=== PATIENT | female | born 1955 | race Caucasian/White ===

== ENCOUNTER 2016-12-16 22:37 | Emergency (ER) | payer BC, OTHER ==
[~2016-12-16] VITALS: Ht 167.6 cm; Wt 105.6 kg
[~2016-12-16 22:37] MED LIST: CLB/200 PO; FLV1 PO; HYDR200T5 PO; LORA0.5T12 PO; MTH25 PO; POTA20TA13 PO; PRED-301 PO; RANI150T2 PO; SIMV10TA2 PO; SULF500T2 PO; TRIATAB3 PO
[2016-12-16 22:42] VITALS: TEMP 36.6; Ht 167.6 cm; Wt 105.6 kg
[2016-12-16] MEDS ORDERED: AMLO2.5T PO (23:31)
[2016-12-16] MEDS ORDERED: KETOROLAC TROMETHAMINE 30 MG/ML VIAL IV STA (23:32)
--- NOTE | 2016-12-17 00:11 | DIAGNOSTIC IMAGING REPORT ---
SINGLE VIEW CHEST CLINICAL HISTORY: Atypical chest pain. FINDINGS: An AP, portable, upright chest radiograph is compared to study dated 05/31/2013. The examination is degraded by portable technique and patient rotation. The cardiomediastinal silhouette is unremarkable. The lungs and pleural spaces are clear. No pneumothorax is seen. The skeletal structures are osteopenic. The bony thorax is grossly intact. Degenerative change and scoliosis are noted in the thoracic spine. IMPRESSION: No active disease in the chest. Electronically signed by: Adan Su M.D. 12/17/2016 12:10 AM Dictated Date/Time: 12/17/2016 12:09 AM
--- NOTE | 2016-12-17 00:12 | DIAGNOSTIC IMAGING REPORT ---
LEFT SHOULDER 3 VIEWS CLINICAL HISTORY: Left shoulder pain. No reported history of trauma. FINDINGS: 3 views of left shoulder are obtained. No prior studies are available for comparison at the time of dictation. The skeletal structures are osteopenic. There is no radiographic evidence of fracture or dislocation. Productive degenerative change is seen at the acromioclavicular joint. Spurring is noted along the inferior aspect of the glenoid. The overlying soft tissues are within normal limits. Imaged left lung parenchyma appears clear. IMPRESSION: No acute bony abnormality is seen in the left shoulder. Electronically signed by: Adan Su M.D. 12/17/2016 12:11 AM Dictated Date/Time: 12/17/2016 12:10 AM
[2016-12-17 00:34] LABS: BASO % 0.3 %; BASO ABS # 0.02 K/uL (0-0.2); COMPLETE YES; EOS % 1.3 %; HEMATOCRIT 36.3 % (37-47); IG% 0.1 %; LYMPH % 26.8 %; LYMPH ABS # 1.85 K/uL (1.2-3.4); MEAN CELL VOLUME 84.6 fL (80-100); MEAN CORPUSCULAR HEMOGLOBIN 28.2 pg (25-34); MEAN CORPUSCULAR HGB CONC 33.3 g/dl (32-36); MEAN PLATELET VOLUME 9.8 fL (7.4-10.4); MONO % 15.2 %; NEUT % 56.3 %; PLATELET COUNT 226 K/uL (130-400); RED BLOOD COUNT 4.29 M/uL (4.2-5.4); WHITE BLOOD COUNT 6.91 K/uL (4.8-10.8)
[2016-12-17 00:51] LABS: BLOOD UREA NITROGEN 22 mg/dl (7-18); BUN/CREATININE RATIO 26.6 (10-20); CALCIUM 8.5 mg/dl (8.5-10.1); CARBON DIOXIDE 28 mmol/L (21-32); CHLORIDE 107 mmol/L (98-107); CREATININE 0.84 mg/dl (0.60-1.20); GLUCOSE 106 mg/dl (70-99); POTASSIUM 3.1 mmol/L (3.5-5.1); SODIUM 143 mmol/L (136-145)
--- NOTE | 2016-12-17 01:20 | EMERGENCY ROOM VISIT NOTE ---
History Report prepared by Primitivo: Jesenia Gordon Under the Supervision of: Dr. Ilan Benson M.D. First contact with patient: 23:19 Chief Complaint: ARM PAIN Stated Complaint: PAIN IN LEFT ARM History of Present Illness The patient is a 61 year old female who presents to the Emergency Room with complaints of constant left upper arm pain which started several days ago. The patient has a history of rheumatoid arthritis. She does not think that this is an arthritis flare. With her flares, she normally has pain in her joints and she is unable to raise her arm. She is currently not having any significant difficulty moving her arm like she does with her flares. She did try taking prednisone which she has in case of flares to no significant relief. She also tried icing her arm to no relief. The pain does go up to her shoulder and down to her elbow at times. She denies any hand pain. She denies any nausea, vomiting , diaphoresis, SOB, or chest pain. She has been eating and drinking well. She has been taking Celebrex. Her last dose was this morning. Source of History: patient Onset: several days ago Position: arm (left) Quality: other (pain) Timing: constant Associated Symptoms: No diaphoresis, No chest pain, No SOB, No nausea, No vomiting Review of Systems See HPI for pertinent positives and negatives. A total of ten systems were reviewed and were otherwise negative. Past Medical & Surgical Medical Problems: (1) Rheumatoid arthritis Family History No pertinent family history stated. Social History Smoking Status: Current Every Day Smoker Alcohol Use: none Drug Use: none Marital Status: Housing Status: lives with family Occupation Status: unemployed Current/Historical Medications Scheduled Amlodipine (Norvasc), 2.5 MG PO DAILY Celecoxib (CeleBREX), 200 MG PO QAM Folic Acid (Folic Acid), 1 TAB PO QAM Hydroxychloroquine Sulfate (Plaquenil), 400 MG PO HS Methotrexate (Methotrexate), 20 MG PO WK Potassium Chloride Microencaps (Potassium Chloride Er), 20 MEQ PO BID Prednisone (Prednisone), 5 MG PO QAM Simvastatin (Zocor), 10 MG PO HS Sulfasalazine (Azulfidine), 500 MG PO BID Triamterene/Hctz (Triamterene/Hctz 37.5-25MG), 1 TAB PO QAM Scheduled PRN Lorazepam (Lorazepam), 0.5 MG PO Q8 PRN for Anxiety Allergies Coded Allergies: No Known Allergies (Unverified , 12/16/16) Physical Exam Vital Signs Date Time Temp Pulse Resp B/P (MAP) Pulse Ox O2 Delivery O2 Flow Rate FiO2 12/17/16 01:35 60 18 155/94 96 12/17/16 00:13 67 12/16/16 22:42 36.6 76 18 159/87 94 Room Air Physical Exam GENERAL: Awake, alert, well-appearing, in no distress HENT: Normocephalic, atraumatic. Dry mucous membranes. EYES: Normal conjunctiva. Sclera non-icteric. NECK: Supple. No nuchal rigidity. FROM. No JVD. RESPIRATORY: Clear to auscultation. CARDIAC: Regular rate, normal rhythm. Extremities warm and well perfused. Pulses equal. ABDOMEN: Soft, non-distended. No tenderness to palpation. No rebound or guarding. No masses. RECTAL: Deferred. MUSCULOSKELETAL: Chest examination reveals no tenderness. The back is symmetrical on inspection without obvious abnormality. There is no CVA tenderness to palpation. No joint edema. Tenderness in the posterior aspect of the GH joint. Mild AC joint tenderness. Mild pain with active ROM. Mild tenderness to lateral aspect of the upper arm and radial distribution. No pain with passive ROM. Distal motor sensory intact. LOWER EXTREMITIES: Calves are equal size bilaterally and non-tender. No edema. No discoloration. NEURO: Normal sensorium. No sensory or motor deficits noted. SKIN: No rash or jaundice noted. Medical Decision & Procedures ER Provider Diagnostic Interpretation: Radiology results as stated below per my review and radiologist interpretation: SINGLE VIEW CHEST CLINICAL HISTORY: Atypical chest pain. FINDINGS: An AP, portable, upright chest radiograph is compared to study dated 05/31/2013. The examination is degraded by portable technique and patient rotation. The cardiomediastinal silhouette is unremarkable. The lungs and pleural spaces are clear. No pneumothorax is seen. The skeletal structures are osteopenic. The bony thorax is grossly intact. Degenerative change and scoliosis are noted in the thoracic spine. IMPRESSION: No active disease in the chest. Electronically signed by: Adan Su M.D. 12/17/2016 12:10 AM Dictated Date/Time: 12/17/2016 12:09 AM LEFT SHOULDER 3 VIEWS CLINICAL HISTORY: Left shoulder pain. No reported history of trauma. FINDINGS: 3 views of left shoulder are obtained. No prior studies are available for comparison at the time of dictation. The skeletal structures are osteopenic. There is no radiographic evidence of fracture or dislocation. Productive degenerative change is seen at the acromioclavicular joint. Spurring is noted along the inferior aspect of the glenoid. The overlying soft tissues are within normal limits. Imaged left lung parenchyma appears clear. IMPRESSION: No acute bony abnormality is seen in the left shoulder. Electronically signed by: Adan Su M.D. 12/17/2016 12:11 AM Dictated Date/Time: 12/17/2016 12:10 AM Laboratory Results 12/17/16 00:23 Red Blood Count 4.29, Mean Corpuscular Volume 84.6, Mean Corpuscular Hemoglobin 28.2, Mean Corpuscular Hemoglobin Concent 33.3, Mean Platelet Volume 9.8, Neutrophils (%) (Auto) 56.3, Lymphocytes (%) (Auto) 26.8, Monocytes (%) (Auto) 15.2, Eosinophils (%) (Auto) 1.3, Basophils (%) (Auto) 0.3, Neutrophils # (Auto ) 3.89, Lymphocytes # (Auto) 1.85, Monocytes # (Auto) 1.05, Eosinophils # (Auto ) 0.09, Basophils # (Auto) 0.02 12/17/16 00:23 Test 12/17/16 00:23 White Blood Count 6.91 K/uL (4.8-10.8) Red Blood Count 4.29 M/uL (4.2-5.4) Hemoglobin 12.1 g/dL (12.0-16.0) Hematocrit 36.3 % (37-47) Mean Corpuscular Volume 84.6 fL (80-100) Mean Corpuscular Hemoglobin 28.2 pg (25-34) Mean Corpuscular Hemoglobin Concent 33.3 g/dl (32-36) Platelet Count 226 K/uL (130-400) Mean Platelet Volume 9.8 fL (7.4-10.4) Neutrophils (%) (Auto) 56.3 % Lymphocytes (%) (Auto) 26.8 % Monocytes (%) (Auto) 15.2 % Eosinophils (%) (Auto) 1.3 % Basophils (%) (Auto) 0.3 % Neutrophils # (Auto) 3.89 K/uL (1.4-6.5) Lymphocytes # (Auto) 1.85 K/uL (1.2-3.4) Monocytes # (Auto) 1.05 K/uL (0.11-0.59) Eosinophils # (Auto) 0.09 K/uL (0-0.5) Basophils # (Auto) 0.02 K/uL (0-0.2) RDW Standard Deviation 44.4 fL (36.4-46.3) RDW Coefficient of Variation 14.4 % (11.5-14.5) Immature Granulocyte % (Auto) 0.1 % Immature Granulocyte # (Auto) 0.01 K/uL (0.00-0.02) Anion Gap 8.0 mmol/L (3-11) Est Creatinine Clear Calc Drug Dose 86.4 ml/min Estimated GFR () 86.9 Estimated GFR (Non- 75.0 BUN/Creatinine Ratio 26.6 (10-20) Calcium Level 8.5 mg/dl (8.5-10.1) Troponin I < 0.015 ng/ml (0-0.045) Laboratory results reviewed by me Medications Administered Medications (Trade) Dose Ordered Sig/Hilaria Route Start Time Stop Time Status Last Admin Dose Admin Ketorolac Tromethamine (Toradol Inj) 30 mg NOW STAT IV 12/16/16 23:32 12/16/16 23:36 DC 12/17/16 00:42 30 MG ECG Indication: back/shoulder pain Rate (beats per minute): 69 Rhythm: normal sinus Findings: no acute ischemic change, other (normal axis) ED Course 2326: The patient was evaluated in room B10. A complete history and physical exam was performed. 2332: Toradol Inj 30 mg IV. 0102: I reevaluated the patient. She is feeling better. I discussed results and discharge instructions: She verbalized understanding and agreement. The patient is ready for discharge. Medical Decision I reviewed the patient's past medical history, medications, and the nursing notes as described above. Differential diagnosis: muscular strain, arthritis, radiculopathy, fracture, dislocation, ACS. The patient is a 61 y/o woman with a pmhx of RA who presents to the ED with left shoulder pain x 3 days per HPI. On arrival the patient is in NAD, AFVSS. On exam has mild ttp posterior GH and anterior AC joint. Mild pain with active FROM. No pain with passive FROM. Shoulder XR with degenerative changes. Otherwise, CXR negative. EKG unremarkable. Trop negative in the setting of 3 days of constant sx. Sx most c/w arthritis. Will give sling as needed for comfort, patient to continue her prednisone burst. Findings and plan for follow- up reviewed patient. Patient agreeable and d/c'd per discharge instructions. Medication Reconcilliation Current Medication List: was personally reviewed by me Blood Pressure Screening Patient's blood pressure: Elevated blood pressure Blood pressure disposition: Elevated BP felt to be situational Impression Primary Impression: Acromioclavicular joint arthritis Scribe Attestation The scribe's documentation has been prepared under my direction and personally reviewed by me in its entirety. I confirm that the note above accurately reflects all work, treatment, procedures, and medical decision making performed by me. Departure Information Dispostion Home / Self-Care Referrals Corona Brice D.O. (PCP) Patient Instructions Arthritis Acromioclavicular, [facility] Additional Instructions Please follow up with your primary care physician in the next 1-3 days for re- evaluation. Your symptoms are likely due to shoulder arthritis. Otherwise, your exam, xrays, and lab results did not show signs of an emergent condition at this time. Continue your current medications. Heating pad at 20 minute intervals throughout the day for additional muscle relaxation. Sling as needed for comfort. Return to the emergency department for worsening symptoms as described in the accompanying instructions.
[2016-12-17 01:35] VITALS: BP 155/94; PULSE 60; O2SAT 96
== END 2016-12-17 01:39 | disposition home or self-care (01) ==
LOC: C.EDB 22:38
DX: M19.019 Primary osteoarthritis, unspecified shoulder (principal); M06.9 Rheumatoid arthritis, unspecified; F17.200 Nicotine dependence, unspecified, uncomplicated

== ENCOUNTER 2017-06-11 21:02 | Inpatient (IN) | payer OTHER ==
[~2017-06-11] VITALS: Ht 167.6 cm; Wt 95.7 kg
[~2017-06-11 21:02] MED LIST changes: -RANI150T2 PO
[2017-06-11] MEDS ORDERED: ALBUT/IPRATROP 3MG/0.5MG NEB 3 ML VIAL INH STA ×3 (21:37→23:34)
[2017-06-11] MEDS ORDERED: METHYLPREDNISOLONE 125 MG VIAL IV STA (21:39)
--- NOTE | 2017-06-11 21:47 | EMERGENCY ROOM VISIT NOTE ---
History First contact with patient: 21:18 Chief Complaint: SHORTNESS OF BREATH Stated Complaint: SHORT OF BREATH,COLD Nursing Triage Summary: pt states has been "fighting off a cold," over the past few days, increasing SHOB today, when pt arrived in room O2 sat RA 84%. Pt left lung contreras coarse and wheezing noted. History of Present Illness The patient is a 62 year old female who presents to the Emergency Room with complaints of worsening shortness of breath today. Patient states in the last 2 days she has been dealing with "cold". States her grandchildren whom she has custody of had recently been ill also but seem to be getting better. Patient states she does have history of bronchitis, has never had pneumonia or been hospitalized for breathing trouble. Patient states she is a smoker, does not use home home oxygen, does not use home MDI/nebulizer treatments. Patient states she woke up in a sweat this morning and assumes that she had a fever overnight. Patient states she has not had any more fevers or chills during the day today. Patient states her cough is productive of sputum which is mostly white and clear, no blood noted in her sputum. Patient states she felt that her breathing was getting harder and harder through the day and so came into the emergency room. Patient states she has felt an accompanying heaviness on her chest. Denies any nausea or vomiting, denies diarrhea, denies increased leg swelling, change in bowel or bladder function. Patient states she has had nasal congestion and rhinorrhea. No recent travel, no other medication changes. Patient does take medications including steroids and methotrexate for rheumatoid arthritis. Review of Systems See HPI for pertinent positives & negatives. A total of 10 systems reviewed and were otherwise negative. Past Medical/Surgical History Medical Problems: (1) Rheumatoid arthritis Social History Smoking Status: Current Every Day Smoker Alcohol Use: none Drug Use: none Marital Status: Housing Status: lives with family Occupation Status: unemployed Current/Historical Medications Scheduled Amlodipine (Norvasc), 2.5 MG PO DAILY Celecoxib (CeleBREX), 200 MG PO QAM Folic Acid (Folic Acid), 1 TAB PO QAM Methotrexate (Methotrexate), 20 MG PO WK Potassium Chloride Microencaps (Potassium Chloride Er), 20 MEQ PO BID Prednisone (Prednisone), 5 MG PO QAM Simvastatin (Zocor), 10 MG PO HS Sulfasalazine (Azulfidine), 500 MG PO BID Triamterene/Hctz (Triamterene/Hctz 37.5-25MG), 1 TAB PO QAM Scheduled PRN Lorazepam (Lorazepam), 0.5 MG PO Q8 PRN for Anxiety Physical Exam Vital Signs Date Time Temp Pulse Resp B/P (MAP) Pulse Ox O2 Delivery O2 Flow Rate FiO2 06/11/17 23:15 81 22 152/71 93 Nasal Cannula 3.0 06/11/17 21:25 75 06/11/17 21:17 95 Nasal Cannula 2.0 06/11/17 21:16 84 Room Air 06/11/17 21:15 84 Room Air 06/11/17 21:05 36.6 82 22 190/87 93 Room Air Physical Exam GENERAL: alert, well appearing, well nourished, no distress, non-toxic EYE EXAM: normal conjunctiva, PERRL and EOM's grossly intact OROPHARYNX: no exudate, no erythema, lips, buccal mucosa, and tongue normal and mucous membranes are moist NECK: supple, no nuchal rigidity, no adenopathy, non-tender LUNGS: Markedly diminished on auscultation, no wheezes/rhonchi/rales. Normal chest wall mechanics, no retractions, no nasal flaring, mild pursed lip breathing HEART: no murmurs, S1 normal and S2 normal ABDOMEN: abdomen soft, non-tender, normo-active bowel sounds, no masses, no rebound or guarding. BACK: Back is symmetrical on inspection and there is no deformity, no midline tenderness, no CVA tenderness. SKIN: no rashes and no bruising, no petechiae UPPER EXTREMITIES: upper extremities are grossly normal. LOWER EXTREMITIES: No pitting edema. Chronic appearing left ankle edema. NEURO EXAM: Normal sensorium, cranial nerves II-XII grossly intact, normal speech, no gross weakness of arms, no gross weakness of legs. Gross sensation intact. Medical Decision & Procedures ER Provider Diagnostic Interpretation: CHEST 2 VIEWS ROUTINE CLINICAL HISTORY: 62 years-old Female presenting with sob, cough. TECHNIQUE: PA and lateral views of the chest were obtained. COMPARISON: 12/16/2016. FINDINGS: Cardiomediastinal silhouette normal. Lungs and pleural spaces clear. 60 scoliotic curvature of the thoracic spine. Mild degenerative changes also noted. Upper abdomen normal. IMPRESSION: 1. No acute cardiopulmonary disease. Electronically signed by: Rocky Muñoz M.D. 06/11/2017 10:37 PM Dictated Date/Time: 06/11/2017 10:36 PM Laboratory Results 06/11/17 22:04 Red Blood Count 4.63, Mean Corpuscular Volume 85.1, Mean Corpuscular Hemoglobin 27.4, Mean Corpuscular Hemoglobin Concent 32.2, Mean Platelet Volume 9.2, Neutrophils (%) (Auto) 68.7, Lymphocytes (%) (Auto) 18.9, Monocytes (%) (Auto) 10.6, Eosinophils (%) (Auto) 1.1, Basophils (%) (Auto) 0.3, Neutrophils # (Auto ) 7.34, Lymphocytes # (Auto) 2.02, Monocytes # (Auto) 1.13, Eosinophils # (Auto ) 0.12, Basophils # (Auto) 0.03 06/11/17 22:04 Test 06/11/17 21:56 06/11/17 22:04 06/11/17 22:16 Influenza Type A Antigen Neg for Influ A (NEG) Influenza Type B Antigen POS for Influ B (NEG) White Blood Count 10.68 K/uL (4.8-10.8) Red Blood Count 4.63 M/uL (4.2-5.4) Hemoglobin 12.7 g/dL (12.0-16.0) Hematocrit 39.4 % (37-47) Mean Corpuscular Volume 85.1 fL (80-100) Mean Corpuscular Hemoglobin 27.4 pg (25-34) Mean Corpuscular Hemoglobin Concent 32.2 g/dl (32-36) Platelet Count 297 K/uL (130-400) Mean Platelet Volume 9.2 fL (7.4-10.4) Neutrophils (%) (Auto) 68.7 % Lymphocytes (%) (Auto) 18.9 % Monocytes (%) (Auto) 10.6 % Eosinophils (%) (Auto) 1.1 % Basophils (%) (Auto) 0.3 % Neutrophils # (Auto) 7.34 K/uL (1.4-6.5) Lymphocytes # (Auto) 2.02 K/uL (1.2-3.4) Monocytes # (Auto) 1.13 K/uL (0.11-0.59) Eosinophils # (Auto) 0.12 K/uL (0-0.5) Basophils # (Auto) 0.03 K/uL (0-0.2) RDW Standard Deviation 43.6 fL (36.4-46.3) RDW Coefficient of Variation 14.1 % (11.5-14.5) Immature Granulocyte % (Auto) 0.4 % Immature Granulocyte # (Auto) 0.04 K/uL (0.00-0.02) Prothrombin Time 10.7 SECONDS (9.0-12.0) Prothromb Time International Ratio 1.0 (0.9-1.1) Anion Gap 6.0 mmol/L (3-11) Est Creatinine Clear Calc Drug Dose 90.6 ml/min Estimated GFR () 99.0 Estimated GFR (Non- 85.4 BUN/Creatinine Ratio 27.5 (10-20) Calcium Level 8.7 mg/dl (8.5-10.1) Magnesium Level 1.9 mg/dl (1.8-2.4) Total Bilirubin 0.3 mg/dl (0.2-1) Aspartate Amino Transf (AST/SGOT) 18 U/L (15-37) Alanine Aminotransferase (ALT/SGPT) 22 U/L (12-78) Alkaline Phosphatase 89 U/L (45-117) Troponin I < 0.015 ng/ml (0-0.045) Pro-B-Type Natriuretic Peptide 609 pg/ml (0-900) Total Protein 7.5 gm/dl (6.4-8.2) Albumin 3.3 gm/dl (3.4-5.0) Globulin 4.2 gm/dl (2.5-4.0) Albumin/Globulin Ratio 0.8 (0.9-2) Chemistry Specimen Hemolysis Bedside Lactic Acid Venous 0.63 mmol/L (0.90-1.70) Medications Administered Medications (Trade) Dose Ordered Sig/Hilaria Route Start Time Stop Time Status Last Admin Dose Admin Albuterol/ Ipratropium (Duoneb) 3 ml NOW STAT INH 06/11/17 21:37 06/11/17 21:38 DC 06/11/17 21:51 3 ML Methylprednisolone Sodium Succinate (Solu-Medrol IV) 125 mg NOW STAT IV 06/11/17 21:39 06/11/17 21:40 DC 06/11/17 22:15 125 MG Albuterol/ Ipratropium (Duoneb) 3 ml NOW STAT INH 06/11/17 22:21 06/11/17 22:22 DC 06/11/17 22:33 3 ML ECG Per My Interpretation Indication: SOB/dyspnea Rate (beats per minute): 72 Rhythm: normal sinus Findings: no acute ischemic change ED Course 1: Patient states feels improved following breathing treatment. On repeat lung exam she is moving better air, and now an expiratory wheeze can be heard 2306: Patient reexamined, states she is feeling improved, just finished second nebulizer treatment. Patient with improved air movement on repeat lung exam, faint scattered expiratory wheezes heard. 2330: Pt again dropped oxygen levels off NC to 87%. NC restarted to 2 lpm. Medical Decision Triage Nursing notes reviewed. The patient's history was concerning for respiratory difficulties. Differential diagnosis: Etiologies such as infections, reactive airway disease, pneumonia, pneumothorax , COPD, CHF, cardiac ischemia, pulmonary embolism, musculoskeletal, gastrointestinal, as well as others were entertained. Pt improved here following nebs, however still unable to be weaned off oxygen. Likely COPD exacerbation due to influenza. Pt appeared improved, no WOB. Pt aware of all results. Doubt bacteremia/sepsis, no evidence of cardiac etiology for SOB. Doubt PE. Pt agreeable with plan. Discussed with hospitalist for additional evaluation and treatment. Medication Reconcilliation Current Medication List: was personally reviewed by me Blood Pressure Screening Patient's blood pressure: Elevated blood pressure Blood pressure disposition: Referred to PCP Consults Time Called: [phone] Consulting Physician: Dr. Trinidad Returned Call: [phone] Discussed pt case for additional evaluation and treatment. Impression Primary Impression: COPD exacerbation Additional Impressions: Influenza Hypoxia Tobacco abuse Departure Information Dispostion Being Evaluated By Hospitalist Condition GOOD Referrals Corona Brice D.O. (PCP) Patient Instructions My [facility] Problem Qualifiers
[2017-06-11 22:13] LABS: BASO % 0.3 %; BASO ABS # 0.03 K/uL (0-0.2); EOS % 1.1 %; EOS ABS # 0.12 K/uL (0-0.5); HEMATOCRIT 39.4 % (37-47); HEMOGLOBIN 12.7 g/dL (12.0-16.0); IG# 0.04 K/uL (0.00-0.02); LYMPH % 18.9 %; LYMPH ABS # 2.02 K/uL (1.2-3.4); MEAN CELL VOLUME 85.1 fL (80-100); MEAN CORPUSCULAR HEMOGLOBIN 27.4 pg (25-34); MEAN CORPUSCULAR HGB CONC 32.2 g/dl (32-36); MEAN PLATELET VOLUME 9.2 fL (7.4-10.4); MONO % 10.6 %; MONO ABS # 1.13 K/uL (0.11-0.59); NEUT % 68.7 %; NEUT ABS # 7.34 K/uL (1.4-6.5); PLATELET COUNT 297 K/uL (130-400); RED CELL DISTRIBUTION WIDTH CV 14.1 % (11.5-14.5); RED CELL DISTRIBUTION WIDTH SD 43.6 fL (36.4-46.3); WHITE BLOOD COUNT 10.68 K/uL (4.8-10.8)
[2017-06-11 22:27] LABS: INFLUENZA B ANTIGEN POS for Influ B (NEG)
[2017-06-11 22:36] LABS: ALBUMIN 3.3 gm/dl (3.4-5.0); ALKALINE PHOSPHATASE 89 U/L (45-117); ALT/SGPT 22 U/L (12-78); AST/SGOT 18 U/L (15-37); BLOOD UREA NITROGEN 21 mg/dl (7-18); CALCIUM 8.7 mg/dl (8.5-10.1); CARBON DIOXIDE 29 mmol/L (21-32); CREATININE 0.75 mg/dl (0.60-1.20); GLUCOSE 92 mg/dl (70-99); POTASSIUM 3.3 mmol/L (3.5-5.1); SODIUM 139 mmol/L (136-145); TOTAL PROTEIN 7.5 gm/dl (6.4-8.2)
--- NOTE | 2017-06-11 22:39 | DIAGNOSTIC IMAGING REPORT ---
CHEST 2 VIEWS ROUTINE CLINICAL HISTORY: 62 years-old Female presenting with sob, cough. TECHNIQUE: PA and lateral views of the chest were obtained. COMPARISON: 12/16/2016. FINDINGS: Cardiomediastinal silhouette normal. Lungs and pleural spaces clear. 60 scoliotic curvature of the thoracic spine. Mild degenerative changes also noted. Upper abdomen normal. IMPRESSION: 1. No acute cardiopulmonary disease. Electronically signed by: Rocky Muñoz M.D. 06/11/2017 10:37 PM Dictated Date/Time: 06/11/2017 10:36 PM
[2017-06-11] MEDS ORDERED: AMLO2.5T PO (23:31)
[2017-06-11] MEDS ORDERED: SODIUM CHLORIDE 0.9% 1000ML 1,000 ML IV STA (23:34)
--- NOTE | 2017-06-11 23:43 | History and Physical ---
History & Physical Date & Time of Service: Jun 11, 2017 at 23:43 Chief Complaint: Short Of Breath,Cold Primary Care Physician: Corona Brice D.O. History of Present Illness Source: patient Patient is a 62-year-old female with past medical history of rheumatoid arthritis, hypertension, dyslipidemia, adenocarcinoma of uterus S/P hysterectomy , tobacco use disorder, anxiety disorder and other problems presents with history of runny nose, cough, chest congestion, diaphoresis and shortness of breath on exertion since yesterday. Patient states her grandchildren had flulike symptoms and she was taking care of them. She reports intermittent cough with minimal expectoration. She was found to be hypoxic at 84% saturations on room air while in ED which improved with 3L of supplemental oxygen. She admits to smoking 1 pack per day since many years but was not diagnosed to have COPD or was not on any inhalers in the past. Reports progressively worsening shortness of breath since yesterday. 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 Denies any history of chest pain, dizziness, wheezing, hemoptysis, fever, chills , headache, nausea, vomiting, abdominal pain, diarrhea, dysuria, recent travel. Past Medical/Surgical History Medical Problems: (1) Acromioclavicular joint arthritis (2) Lumbar strain (3) Rheumatoid arthritis (4) Right Knee DJD Medical Problems: (1) Adenocarcinoma of uterus Status: Resolved (2) Dyslipidemia Status: Chronic (3) HTN (hypertension) Status: Chronic (4) Lipoma of neck Status: Chronic (5) Rheumatoid arthritis Status: Chronic (6) Right Knee DJD Status: Chronic Surgical Problems: (1) H/O: hysterectomy Status: Resolved Family History FH: atrial fibrillation MOTHER FH: dementia FATHER Social History Smoking Status: Current Every Day Smoker Alcohol Use: none Drug Use: none Marital Status: Occupational Status: unemployed Allergies Coded Allergies: No Known Allergies (Unverified , 06/11/17) Home Medications Scheduled Amlodipine (Norvasc), 2.5 MG PO DAILY Celecoxib (CeleBREX), 200 MG PO QAM Folic Acid (Folic Acid), 1 TAB PO QAM Methotrexate (Methotrexate), 20 MG PO WK Potassium Chloride Microencaps (Potassium Chloride Er), 20 MEQ PO BID Prednisone (Prednisone), 5 MG PO QAM Simvastatin (Zocor), 10 MG PO HS Sulfasalazine (Azulfidine), 500 MG PO BID Triamterene/Hctz (Triamterene/Hctz 37.5-25MG), 1 TAB PO QAM Scheduled PRN Lorazepam (Lorazepam), 0.5 MG PO Q8 PRN for Anxiety Review of Systems See HPI for pertinent positives & negatives. A total of 10 systems reviewed and were otherwise negative. Physical Exam Vital Signs Date Time Temp Pulse Resp B/P (MAP) Pulse Ox O2 Delivery O2 Flow Rate FiO2 06/11/17 23:15 81 22 152/71 93 Nasal Cannula 3.0 06/11/17 21:25 75 06/11/17 21:17 95 Nasal Cannula 2.0 06/11/17 21:16 84 Room Air 06/11/17 21:15 84 Room Air 06/11/17 21:05 36.6 82 22 190/87 93 Room Air General Appearance: WD/WN, no apparent distress Head: normocephalic, atraumatic Eyes: normal inspection, PERRL, EOMI, sclerae normal ENT: normal ENT inspection, hearing grossly normal Neck: supple, trachea midline Respiratory/Chest: chest non-tender, lungs clear, no respiratory distress, no accessory muscle use, + decreased breath sounds Cardiovascular: regular rate, rhythm, no murmur, + pertinent finding (Trace pedal edema) Abdomen/GI: normal bowel sounds, non tender, soft Back: normal inspection Extremities/Musculoskelatal: normal inspection, + pedal edema (Trace), + pertinent finding (RA changes of B/L metacarpophalangeal joints) Neurologic/Psych: 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, no motor/sensory deficits, alert, normal mood/affect, oriented x 3 Skin: normal color, warm/dry Diagnostics Laboratory Results Results Past 24 Hours Test 06/11/17 21:56 06/11/17 22:04 06/11/17 22:16 Range/Units Influenza Type A Antigen Neg for Influ A NEG Influenza Type B Antigen POS for Influ B NEG White Blood Count 10.68 4.8-10.8 K/uL Red Blood Count 4.63 4.2-5.4 M/uL Hemoglobin 12.7 12.0-16.0 g/dL Hematocrit 39.4 37-47 % Mean Corpuscular Volume 85.1 80-100 fL Mean Corpuscular Hemoglobin 27.4 25-34 pg Mean Corpuscular Hemoglobin Concent 32.2 32-36 g/dl Platelet Count 297 130-400 K/uL Mean Platelet Volume 9.2 7.4-10.4 fL Neutrophils (%) (Auto) 68.7 % Lymphocytes (%) (Auto) 18.9 % Monocytes (%) (Auto) 10.6 % Eosinophils (%) (Auto) 1.1 % Basophils (%) (Auto) 0.3 % Neutrophils # (Auto) 7.34 1.4-6.5 K/uL Lymphocytes # (Auto) 2.02 1.2-3.4 K/uL Monocytes # (Auto) 1.13 0.11-0.59 K/uL Eosinophils # (Auto) 0.12 0-0.5 K/uL Basophils # (Auto) 0.03 0-0.2 K/uL RDW Standard Deviation 43.6 36.4-46.3 fL RDW Coefficient of Variation 14.1 11.5-14.5 % Immature Granulocyte % (Auto) 0.4 % Immature Granulocyte # (Auto) 0.04 0.00-0.02 K/uL Prothrombin Time 10.7 9.0-12.0 SECONDS Prothromb Time International Ratio 1.0 0.9-1.1 Sodium Level 139 136-145 mmol/L Potassium Level 3.3 3.5-5.1 mmol/L Chloride Level 105 98-107 mmol/L Carbon Dioxide Level 29 21-32 mmol/L Anion Gap 6.0 3-11 mmol/L Blood Urea Nitrogen 21 7-18 mg/dl Creatinine 0.75 0.60-1.20 mg/dl Est Creatinine Clear Calc Drug Dose 90.6 ml/min Estimated GFR () 99.0 Estimated GFR (Non- 85.4 BUN/Creatinine Ratio 27.5 10-20 Random Glucose 92 70-99 mg/dl Calcium Level 8.7 8.5-10.1 mg/dl Magnesium Level 1.9 1.8-2.4 mg/dl Total Bilirubin 0.3 0.2-1 mg/dl Aspartate Amino Transf (AST/SGOT) 18 15-37 U/L Alanine Aminotransferase (ALT/SGPT) 22 12-78 U/L Alkaline Phosphatase 89 45-117 U/L Troponin I < 0.015 0-0.045 ng/ml Pro-B-Type Natriuretic Peptide 609 0-900 pg/ml Total Protein 7.5 6.4-8.2 gm/dl Albumin 3.3 3.4-5.0 gm/dl Globulin 4.2 2.5-4.0 gm/dl Albumin/Globulin Ratio 0.8 0.9-2 Chemistry Specimen Hemolysis Bedside Lactic Acid Venous 0.63 0.90-1.70 mmol/L Diagnostic Radiology CXR:No acute cardiopulmonary disease. 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
[2017-06-12] VITALS (9 sets, daily range): BP systolic 142–164; BP diastolic 79–90; PULSE 66–78; TEMP 36.4–36.6; O2SAT 92–98; Ht 167.6 cm; Wt 95.7 kg
[2017-06-12] MEDS ORDERED: OSELTAMIVIR PHOSPHATE 75 MG CAP PO STA (00:26)
[2017-06-12] MEDS ORDERED: POTASSIUM CHLORIDE 10 MEQ TABCR PO STA (00:27)
[2017-06-12] MEDS ORDERED: ACETAMINOPHEN 325 MG TAB PO PRN (00:30)
[2017-06-12] MEDS ORDERED: LORAZEPAM 0.5 MG TAB PO PRN (00:30)
[2017-06-12] MEDS ORDERED: ONDANSETRON INJ 2 MG/ML 2 ML VIAL IV PRN (00:30)
[2017-06-12] MEDS ORDERED: SULFASALAZINE 500 MG TAB PO ONE (00:45)
[2017-06-12 05:45] LABS: HEMATOCRIT 36.3 % (37-47); HEMOGLOBIN 11.8 g/dL (12.0-16.0); MEAN CELL VOLUME 85.2 fL (80-100); MEAN CORPUSCULAR HEMOGLOBIN 27.7 pg (25-34); MEAN CORPUSCULAR HGB CONC 32.5 g/dl (32-36); MEAN PLATELET VOLUME 9.4 fL (7.4-10.4); PLATELET COUNT 257 K/uL (130-400); RED CELL DISTRIBUTION WIDTH CV 14.3 % (11.5-14.5); RED CELL DISTRIBUTION WIDTH SD 44.2 fL (36.4-46.3); WHITE BLOOD COUNT 8.02 K/uL (4.8-10.8)
[2017-06-12 06:07] LABS: BLOOD UREA NITROGEN 20 mg/dl (7-18); CALCIUM 8.9 mg/dl (8.5-10.1); CARBON DIOXIDE 28 mmol/L (21-32); GLUCOSE 218 mg/dl (70-99); POTASSIUM 3.7 mmol/L (3.5-5.1); SODIUM 140 mmol/L (136-145)
[2017-06-12] MEDS: ALBUT/IPRATROP 3MG/0.5MG NEB 3 ML VIAL INH SCH ×4 (07:00→19:31)
[2017-06-12] MEDS: ENOXAPARIN 40 MG/0.4 ML SYR SQ SCH (07:51)
[2017-06-12] MEDS: CeleBREX 200 MG CAP PO SCH (07:51)
[2017-06-12] MEDS: POTASSIUM CHLORIDE 20 MEQ TABCR PO SCH ×2 (07:52→20:31)
[2017-06-12] MEDS: TRIAMTERENE/HCTZ 37.5/25MG TAB PO SCH (07:52)
[2017-06-12] MEDS: AMLODIPINE BESYLATE 5 MG TAB PO SCH (07:52)
[2017-06-12] MEDS: SULFASALAZINE 500 MG TAB PO SCH ×2 (07:52→20:31)
[2017-06-12] MEDS: NICOTINE 21 MG/24 HR TDSY TD SCH (07:53)
--- NOTE | 2017-06-12 20:00 | Progress Note ---
Medicine Progress Note Date & Time of Visit: Jun 12, 2017 at 12:20 . Subjective CC: Follow-up visit for influenza B. HPI: Admitted last night. Presented to ED with cough and hypoxia. Influenza B Ag positive. Feels better today. Cough improved. Less SOB, but still wearing O2. No fever. ROS: General- as noted above in HPI Resp- as noted above in HPI Cardiac- no chest pain, no edema GI- no nausea, no vomiting, no diarrhea - no dysuria . Objective Last 8 Hrs Date Time Temp Pulse Resp B/P (MAP) Pulse Ox O2 Delivery O2 Flow Rate FiO2 06/12/17 19:31 68 16 98 Nasal Cannula 3.0 06/12/17 16:00 Room Air 4.0 06/12/17 15:16 66 16 98 Nasal Cannula 3.0 06/12/17 15:00 36.5 70 18 164/90 (114) 97 2.0 Physical Exam: General- adult female, no distress Lungs- scattered rhonchi, diffuse wheezing; no respiratory distress Cardiovascular- RRR; no murmur or gallop appreciated; no JVD; no pretibial edema Abdomen- + bowel sounds, soft, nontender Extremities- no cyanosis; no calf tenderness Neuro- alert, oriented Skin- warm & dry . Laboratory Results: Last 24 Hours Test 06/11/17 21:56 06/11/17 22:04 06/11/17 22:16 06/12/17 00:33 Influenza Type A Antigen Neg for Influ A Influenza Type B Antigen POS for Influ B White Blood Count 10.68 K/uL Red Blood Count 4.63 M/uL Hemoglobin 12.7 g/dL Hematocrit 39.4 % Mean Corpuscular Volume 85.1 fL Mean Corpuscular Hemoglobin 27.4 pg Mean Corpuscular Hemoglobin Concent 32.2 g/dl Platelet Count 297 K/uL Mean Platelet Volume 9.2 fL Neutrophils (%) (Auto) 68.7 % Lymphocytes (%) (Auto) 18.9 % Monocytes (%) (Auto) 10.6 % Eosinophils (%) (Auto) 1.1 % Basophils (%) (Auto) 0.3 % Neutrophils # (Auto) 7.34 K/uL Lymphocytes # (Auto) 2.02 K/uL Monocytes # (Auto) 1.13 K/uL Eosinophils # (Auto) 0.12 K/uL Basophils # (Auto) 0.03 K/uL RDW Standard Deviation 43.6 fL RDW Coefficient of Variation 14.1 % Immature Granulocyte % (Auto) 0.4 % Immature Granulocyte # (Auto) 0.04 K/uL Prothrombin Time 10.7 SECONDS Prothromb Time International Ratio 1.0 Sodium Level 139 mmol/L Potassium Level 3.3 mmol/L Chloride Level 105 mmol/L Carbon Dioxide Level 29 mmol/L Anion Gap 6.0 mmol/L Blood Urea Nitrogen 21 mg/dl Creatinine 0.75 mg/dl Est Creatinine Clear Calc Drug Dose 90.6 ml/min Estimated GFR () 99.0 Estimated GFR (Non- 85.4 BUN/Creatinine Ratio 27.5 Random Glucose 92 mg/dl Calcium Level 8.7 mg/dl Magnesium Level 1.9 mg/dl Total Bilirubin 0.3 mg/dl Aspartate Amino Transf (AST/SGOT) 18 U/L Alanine Aminotransferase (ALT/SGPT) 22 U/L Alkaline Phosphatase 89 U/L Troponin I < 0.015 ng/ml Pro-B-Type Natriuretic Peptide 609 pg/ml Total Protein 7.5 gm/dl Albumin 3.3 gm/dl Globulin 4.2 gm/dl Albumin/Globulin Ratio 0.8 Chemistry Specimen Hemolysis Bedside Lactic Acid Venous 0.63 mmol/L Procalcitonin 0.12 ng/ml Test 06/12/17 05:24 White Blood Count 8.02 K/uL Red Blood Count 4.26 M/uL Hemoglobin 11.8 g/dL Hematocrit 36.3 % Mean Corpuscular Volume 85.2 fL Mean Corpuscular Hemoglobin 27.7 pg Mean Corpuscular Hemoglobin Concent 32.5 g/dl RDW Standard Deviation 44.2 fL RDW Coefficient of Variation 14.3 % Platelet Count 257 K/uL Mean Platelet Volume 9.4 fL Sodium Level 140 mmol/L Potassium Level 3.7 mmol/L Chloride Level 105 mmol/L Carbon Dioxide Level 28 mmol/L Anion Gap 7.0 mmol/L Blood Urea Nitrogen 20 mg/dl Creatinine 0.90 mg/dl Est Creatinine Clear Calc Drug Dose 75.5 ml/min Estimated GFR () 79.4 Estimated GFR (Non- 68.5 BUN/Creatinine Ratio 22.6 Random Glucose 218 mg/dl Calcium Level 8.9 mg/dl Magnesium Level 2.0 mg/dl Troponin I < 0.015 ng/ml Hepatitis C Antibody Screen NEG Assessment & Plan INFLUENZA B Continue oseltamivir. HYPOXIA Secondary to influenza B. Continue supplemental O2; wean as tolerated. HYPERTENSION Continue amlodipine + HCTZ. HYPOKALEMIA K at time of admission 3.3. Probably secondary to HCTZ. Improved. RA Continue prednisone. Hold MTX in light of influenza. VTE PROPHYLAXIS SQ enoxaparin. Ambulate. DISPOSITION Expected discharge to home. Medical follow-up with Dr. Brice. . Current Inpatient Medications: Current Inpatient Medications Medications (Trade) Dose Ordered Sig/Hilaria Route Start Time Stop Time Status Last Admin Dose Admin Enoxaparin Sodium (Lovenox Inj) 40 mg Q24H SQ 06/12/17 08:00 07/12/17 07:59 06/12/17 07:51 40 MG Acetaminophen (Tylenol Tab) 650 mg Q4H PRN PO 06/12/17 00:30 07/12/17 00:29 Ondansetron HCl (Zofran Inj) 4 mg Q6H PRN IV 06/12/17 00:30 07/12/17 00:29 Albuterol/ Ipratropium (Duoneb) 3 ml QIDR INH 06/12/17 08:00 07/12/17 07:59 06/12/17 19:31 3 ML Oseltamivir Phosphate (Tamiflu Cap) 75 mg BID PO 06/12/17 09:00 06/17/17 08:59 Amlodipine Besylate (Norvasc Tab) 2.5 mg DAILY PO 06/12/17 08:00 07/12/17 08:59 06/12/17 07:52 2.5 MG Celecoxib (CeleBREX CAP) 200 mg QAM PO 06/12/17 08:00 07/12/17 08:59 06/12/17 07:51 200 MG Folic Acid (Folvite Tab) 1 mg QAM PO 06/12/17 08:00 07/12/17 08:59 06/12/17 07:53 1 MG Lorazepam (Ativan Tab) 0.5 mg Q8 PRN PO 06/12/17 00:30 07/12/17 00:29 Potassium Chloride (Klor-Con Tab) 20 meq BID PO 06/12/17 08:00 07/12/17 08:59 06/12/17 07:52 20 MEQ Simvastatin (Zocor Tab) 10 mg HS PO 06/12/17 21:00 07/12/17 20:59 Sulfasalazine (Azulfidine Tab) 500 mg BID PO 06/12/17 08:00 07/12/17 08:59 06/12/17 07:52 500 MG Triamterene/HCTZ (Maxzide 37.5/25 Tab) 1 tab QAM PO 06/12/17 08:00 07/12/17 08:59 06/12/17 07:52 1 TAB Prednisone (PredniSONE TAB) 10 mg Taper DAILY PO 06/12/17 08:00 06/25/17 08:59 06/12/17 07:51 10 MG Nicotine (Nicoderm Cq 21MG Patch) 1 patch QAM TD 06/12/17 08:00 07/12/17 08:59 06/12/17 07:53 1 PATCH Miscellaneous (Remove Nicoderm Patch) 1 ea HS N/A 06/12/17 21:00 07/12/17 20:59
[2017-06-12] MEDS: OSELTAMIVIR PHOSPHATE 75 MG CAP PO SCH (20:31)
[2017-06-12] MEDS: SIMVASTATIN 10 MG TAB PO SCH (20:31)
[2017-06-13] VITALS (10 sets, daily range): BP systolic 122–151; BP diastolic 75–89; PULSE 59–78; TEMP 36.3–36.7; O2SAT 93–99
[2017-06-13] MEDS: ALBUT/IPRATROP 3MG/0.5MG NEB 3 ML VIAL INH SCH ×4 (07:17→19:25)
[2017-06-13] MEDS: CeleBREX 200 MG CAP PO SCH (07:54)
[2017-06-13] MEDS: TRIAMTERENE/HCTZ 37.5/25MG TAB PO SCH (07:54)
[2017-06-13] MEDS: OSELTAMIVIR PHOSPHATE 75 MG CAP PO SCH ×2 (07:55→20:33)
[2017-06-13] MEDS: SULFASALAZINE 500 MG TAB PO SCH ×2 (07:55→20:36)
[2017-06-13] MEDS: AMLODIPINE BESYLATE 5 MG TAB PO SCH (07:55)
[2017-06-13] MEDS: POTASSIUM CHLORIDE 20 MEQ TABCR PO SCH ×2 (07:55→20:36)
[2017-06-13] MEDS: NICOTINE 21 MG/24 HR TDSY TD SCH (07:56)
[2017-06-13] MEDS: ENOXAPARIN 40 MG/0.4 ML SYR SQ SCH (08:08)
--- NOTE | 2017-06-13 13:51 | Progress Note ---
Internal Med Progress Note Date of Service: Jun 13, 2017. Provider Documentation: SUBJECTIVE: The patient was seen and examined Admitted with flulike symptoms and noted to have influenza B No pneumonia in chest x-ray Clinically a lot better but requires nasal cannula oxygen OBJECTIVE: Vital Signs-as noted below Exam: General-no apparent distress at rest Eyes-normal ENT-normal Neck-supple Lungs-decreased breath sounds but no wheezing and/or crackles Heart-regular, no murmur Abdomen-benign, soft, nontender Extremities-no edema Neuro-alert, oriented and awake No focal neuro deficit Lab data as noted below. ASSESSMENT & PLAN: INFLUENZA B Continue oseltamivir. Clinically a lot better but still requiring nasal cannula oxygen Has cough without any phlegm HYPOXIA Secondary to influenza B. Continue supplemental O2; wean as tolerated. We need to do 2 steps saturation test before discharge HYPERTENSION Continue amlodipine + HCTZ Controlled. HYPOKALEMIA K at time of admission 3.3. Probably secondary to HCTZ. Improve and normalized RA Continue prednisone. Hold MTX in light of influenza. VTE PROPHYLAXIS SQ enoxaparin. Ambulate. DISPOSITION Expected discharge to home. Medical follow-up with Dr. Brice. Likely discharge in a day or 2. Vital Signs: Date Time Temp Pulse Resp B/P (MAP) Pulse Ox O2 Delivery O2 Flow Rate FiO2 06/13/17 11:33 71 16 97 Nasal Cannula 2.0 06/13/17 08:19 96 Nasal Cannula 4.0 06/13/17 07:17 74 16 96 Nasal Cannula 2.0 06/13/17 07:14 36.7 59 18 151/89 (109) 96 4.0 06/13/17 00:06 36.3 70 20 148/87 (107) 99 Room Air 06/12/17 23:59 Room Air 4.0 06/12/17 19:31 68 16 98 Nasal Cannula 3.0 06/12/17 16:00 Room Air 4.0 06/12/17 15:16 66 16 98 Nasal Cannula 3.0 06/12/17 15:00 36.5 70 18 164/90 (114) 97 2.0
[2017-06-13] MEDS: SIMVASTATIN 10 MG TAB PO SCH (20:37)
[2017-06-14 00:18] VITALS: BP 128/69; PULSE 69; TEMP 36.4; O2SAT 92
[2017-06-14 06:44] LABS: HEMATOCRIT 38.6 % (37-47); HEMOGLOBIN 12.3 g/dL (12.0-16.0); MEAN CELL VOLUME 85.2 fL (80-100); MEAN CORPUSCULAR HEMOGLOBIN 27.2 pg (25-34); MEAN CORPUSCULAR HGB CONC 31.9 g/dl (32-36); MEAN PLATELET VOLUME 9.2 fL (7.4-10.4); PLATELET COUNT 273 K/uL (130-400); RED CELL DISTRIBUTION WIDTH CV 14.1 % (11.5-14.5); RED CELL DISTRIBUTION WIDTH SD 44.2 fL (36.4-46.3); WHITE BLOOD COUNT 7.21 K/uL (4.8-10.8)
[2017-06-14 07:03] VITALS: PULSE 66; O2SAT 91
[2017-06-14] MEDS: ALBUT/IPRATROP 3MG/0.5MG NEB 3 ML VIAL INH SCH ×2 (07:03→10:50)
[2017-06-14 07:07] VITALS: BP 152/90; PULSE 68; TEMP 36.6; O2SAT 92
[2017-06-14 07:12] LABS: CALCIUM 8.6 mg/dl (8.5-10.1); CREATININE 0.78 mg/dl (0.60-1.20); POTASSIUM 3.6 mmol/L (3.5-5.1)
[2017-06-14] MEDS: CeleBREX 200 MG CAP PO SCH (07:52)
[2017-06-14] MEDS: ENOXAPARIN 40 MG/0.4 ML SYR SQ SCH (07:52)
[2017-06-14] MEDS: OSELTAMIVIR PHOSPHATE 75 MG CAP PO SCH (07:53)
[2017-06-14] MEDS: SULFASALAZINE 500 MG TAB PO SCH (07:53)
[2017-06-14] MEDS: POTASSIUM CHLORIDE 20 MEQ TABCR PO SCH (07:54)
[2017-06-14] MEDS: AMLODIPINE BESYLATE 5 MG TAB PO SCH (07:54)
[2017-06-14] MEDS: TRIAMTERENE/HCTZ 37.5/25MG TAB PO SCH (07:54)
[2017-06-14] MEDS: NICOTINE 21 MG/24 HR TDSY TD SCH (07:55)
[2017-06-14 10:50] VITALS: PULSE 71; O2SAT 95
--- NOTE | 2017-06-14 11:21 | Progress Note ---
Internal Med Progress Note Date of Service: Jun 14, 2017. Provider Documentation: SUBJECTIVE: The patient was seen and examined Admitted with flulike symptoms and noted to have influenza B No pneumonia in chest x-ray Clinically a lot better but requires nasal cannula oxygen 06/14 Much better today Ambulating without any difficulty 2 steps before discharge OBJECTIVE: Vital Signs-as noted below Exam: General-no apparent distress at rest Eyes-normal ENT-normal Neck-supple Lungs-decreased breath sounds but occasional wheezing Heart-regular, no murmur Abdomen-benign, soft, nontender Extremities-no edema Neuro-alert, oriented and awake No focal neuro deficit Lab data as noted below. ASSESSMENT & PLAN: INFLUENZA B Continue oseltamivir.-5 days in total Clinically a lot better but still requiring nasal cannula oxygen Has cough without any phlegm Minimal wheezing -will give Albuterol inhaler HYPOXIA Secondary to influenza B. Continue supplemental O2; wean as tolerated. We need to do 2 steps saturation test before discharge HYPERTENSION Continue amlodipine + HCTZ Controlled. HYPOKALEMIA K at time of admission 3.3. Probably secondary to HCTZ. Improve and normalized RA Continue prednisone. Hold MTX in light of influenza. VTE PROPHYLAXIS SQ enoxaparin. Ambulate. DISPOSITION Expected discharge to home. Medical follow-up with Dr. Brice. Discharge home today Vital Signs: Date Time Temp Pulse Resp B/P (MAP) Pulse Ox O2 Delivery O2 Flow Rate FiO2 06/14/17 10:50 71 18 95 Room Air 06/14/17 08:00 Room Air 06/14/17 07:07 36.6 68 16 152/90 (110) 92 06/14/17 07:03 66 18 91 Room Air 06/14/17 00:18 36.4 69 18 128/69 (88) 92 Room Air 06/14/17 00:00 Room Air 06/13/17 20:00 93 Room Air 06/13/17 19:25 68 18 97 Nasal Cannula 2.0 06/13/17 16:13 97 Nasal Cannula 2.0 06/13/17 15:33 78 18 97 Nasal Cannula 2.0 06/13/17 15:01 36.5 65 16 122/75 (91) 98 4.0 06/13/17 11:33 71 16 97 Nasal Cannula 2.0 Lab Results: Results Past 24 Hours Test 06/14/17 06:29 Range/Units White Blood Count 7.21 4.8-10.8 K/uL Red Blood Count 4.53 4.2-5.4 M/uL Hemoglobin 12.3 12.0-16.0 g/dL Hematocrit 38.6 37-47 % Mean Corpuscular Volume 85.2 80-100 fL Mean Corpuscular Hemoglobin 27.2 25-34 pg Mean Corpuscular Hemoglobin Concent 31.9 32-36 g/dl RDW Standard Deviation 44.2 36.4-46.3 fL RDW Coefficient of Variation 14.1 11.5-14.5 % Platelet Count 273 130-400 K/uL Mean Platelet Volume 9.2 7.4-10.4 fL Sodium Level 141 136-145 mmol/L Potassium Level 3.6 3.5-5.1 mmol/L Chloride Level 104 98-107 mmol/L Carbon Dioxide Level 30 21-32 mmol/L Anion Gap 6.0 3-11 mmol/L Blood Urea Nitrogen 21 7-18 mg/dl Creatinine 0.78 0.60-1.20 mg/dl Est Creatinine Clear Calc Drug Dose 87.2 ml/min Estimated GFR () 94.4 Estimated GFR (Non- 81.5 BUN/Creatinine Ratio 26.6 10-20 Random Glucose 91 70-99 mg/dl Calcium Level 8.6 8.5-10.1 mg/dl Magnesium Level 2.0 1.8-2.4 mg/dl
[2017-06-14] MEDS ORDERED: ALBUTEROL HFA 8 GM INHALER INH PRN (11:30)
[2017-06-14] MEDS ORDERED: NICO21DI4 TD (14:43)
[2017-06-14] MEDS ORDERED: PRVHFAIN INH (14:43)
[2017-06-14] MEDS ORDERED: TMF75 PO (14:43)
--- NOTE | 2017-06-14 14:45 | Discharge Instructions ---
Discharge Instructions Date of Service Jun 14, 2017. Admission Reason for Admission: Hypoxia, Influenza Discharge Discharge Diagnosis / Problem: Influenza B Discharge Goals Goal(s): Prevent Disease Progression Activity Recommendations Activity Limitations: resume your previous activity . Instructions / Follow-Up Instructions / Follow-Up DR Garvey on 06/20/17 at 2:45PM Current Hospital Diet Patient's current hospital diet: AHA Diet (Heart Healthy) Discharge Diet Recommended Diet: AHA Diet (Heart Healthy) Pending Studies Studies pending at discharge: no Medical Emergencies . Who to Call and When: Medical Emergencies: If at any time you feel your situation is an emergency, please call 911 immediately. . Non-Emergent Contact Non-Emergency issues call your: Primary Care Provider . Past History Medical & Surgical History: (1) Influenza B (2) HTN (hypertension) (3) Rheumatoid arthritis (4) Dyslipidemia . "Provider Documentation" section prepared by Jesse Darby. .
[2017-06-14 14:50] VITALS: BP 152/90; PULSE 71; TEMP 36.6; O2SAT 95
--- NOTE | 2017-06-14 17:18 | Discharge Summary ---
Discharge Summary Date of Service Jun 14, 2017. Discharge Summary Admission Date: Jun 12, 2017 at 00:24 Discharge Date: Jun 14, 2017 Discharge Disposition: Home Principal Diagnosis: Influenza B,Hypoxemia Secondary Diagnoses/Problems: Please see H&P and Hospital progress note Medication Reconciliation New Medications: Albuterol (Ventolin Hfa) 60 Puffs/5400 Mcg Aers 2 PUFFS INH Q6H PRN for wheezing for 30 Days, #1 Nicotine (Nicoderm Cq) 21 Mg/24 Hr Dis 1 PATCH TD QAM for 30 Days, #30 Oseltamivir Phosphate (Tamiflu) 75 Mg Cap 75 MG PO BID for 3 Days, #6 CAP Continued Medications: Amlodipine (Norvasc) 2.5 Mg Tab 2.5 MG PO DAILY, TAB Celecoxib (CeleBREX) 200 Mg Cap 200 MG PO QAM, CAP Folic Acid (Folic Acid) 1 Mg Tab 1 TAB PO QAM Lorazepam (Lorazepam) 0.5 Mg Tab 0.5 MG PO Q8 PRN for Anxiety Methotrexate (Methotrexate) 2.5 Mg Tab 20 MG PO WK TAKE ON MONDAY Potassium Chloride Microencaps (Potassium Chloride Er) 20 Meq Tab 20 MEQ PO BID Prednisone (Prednisone) 5 Mg Tab 5 MG PO QAM, TAB Simvastatin (Zocor) 10 Mg Tab 10 MG PO HS, TAB Sulfasalazine (Azulfidine) 500 Mg Tab 500 MG PO BID, TAB Triamterene/Hctz (Triamterene/Hctz 37.5-25MG) 1 Tab Tab 1 TAB PO QAM, TAB Admission Information HPI (per Admitting provider): Patient is a 62-year-old female with past medical history of rheumatoid arthritis, hypertension, dyslipidemia, adenocarcinoma of uterus S/P hysterectomy , tobacco use disorder, anxiety disorder and other problems presents with history of runny nose, cough, chest congestion, diaphoresis and shortness of breath on exertion since yesterday. Patient states her grandchildren had flulike symptoms and she was taking care of them. She reports intermittent cough with minimal expectoration. She was found to be hypoxic at 84% saturations on room air while in ED which improved with 3L of supplemental oxygen. She admits to smoking 1 pack per day since many years but was not diagnosed to have COPD or was not on any inhalers in the past. Reports progressively worsening shortness of breath since yesterday. She has been on tapering dose of prednisone for RA started by her upsetter helper few days ago. Denies any history of chest pain, dizziness, wheezing, hemoptysis, fever, chills , headache, nausea, vomiting, abdominal pain, diarrhea, dysuria, recent travel. Past Medical/Surgical History Medical Problems: (1) Acromioclavicular joint arthritis (2) Lumbar strain (3) Rheumatoid arthritis (4) Right Knee DJD Medical Problems: (1) Adenocarcinoma of uterus Status: Resolved (2) Dyslipidemia Status: Chronic (3) HTN (hypertension) Status: Chronic (4) Lipoma of neck Status: Chronic (5) Rheumatoid arthritis Status: Chronic (6) Right Knee DJD Status: Chronic Surgical Problems: (1) H/O: hysterectomy Status: Resolved Family History FH: atrial fibrillation MOTHER FH: dementia FATHER Social History Smoking Status: Current Every Day Smoker Alcohol Use: none Drug Use: none Marital Status: Occupational Status: unemployed Allergies Coded Allergies: No Known Allergies (Unverified , 06/11/17) Home Medications Scheduled Amlodipine (Norvasc), 2.5 MG PO DAILY Celecoxib (CeleBREX), 200 MG PO QAM Folic Acid (Folic Acid), 1 TAB PO QAM Methotrexate (Methotrexate), 20 MG PO WK Potassium Chloride Microencaps (Potassium Chloride Er), 20 MEQ PO BID Prednisone (Prednisone), 5 MG PO QAM Simvastatin (Zocor), 10 MG PO HS Sulfasalazine (Azulfidine), 500 MG PO BID Triamterene/Hctz (Triamterene/Hctz 37.5-25MG), 1 TAB PO QAM Scheduled PRN Lorazepam (Lorazepam), 0.5 MG PO Q8 PRN for Anxiety Review of Systems See HPI for pertinent positives & negatives. A total of 10 systems reviewed and were otherwise negative. Physical Exam H&P v2 Physical Exam Vital Signs Date Time Temp Pulse Resp B/P (MAP) Pulse Ox O2 Delivery O2 Flow Rate FiO2 06/11/17 23:15 81 22 152/71 93 Nasal Cannula 3.0 06/11/17 21:25 75 06/11/17 21:17 95 Nasal Cannula 2.0 06/11/17 21:16 84 Room Air 06/11/17 21:15 84 Room Air 06/11/17 21:05 36.6 82 22 190/87 93 Room Air General Appearance: WD/WN, no apparent distress Head: normocephalic, atraumatic Eyes: normal inspection, PERRL, EOMI, sclerae normal ENT: normal ENT inspection, hearing grossly normal Neck: supple, trachea midline Respiratory/Chest: chest non-tender, lungs clear, no respiratory distress, no accessory muscle use, + decreased breath sounds Cardiovascular: regular rate, rhythm, no murmur, + pertinent finding (Trace pedal edema) Abdomen/GI: normal bowel sounds, non tender, soft Back: normal inspection Extremities/Musculoskelatal: normal inspection, + pedal edema (Trace), + pertinent finding (RA changes of B/L metacarpophalangeal joints) Neurologic/Psych: community development 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 II-XII nml as tested, no motor/sensory deficits, alert, normal mood/affect, oriented x 3 Skin: normal color, warm/dry Diagnostics H&P v2 Diagnostics Laboratory Results Results Past 24 Hours Test 06/11/17 21:56 06/11/17 22:04 06/11/17 22:16 Range/Units Influenza Type A Antigen Neg for Influ A NEG Influenza Type B Antigen POS for Influ B NEG White Blood Count 10.68 4.8-10.8 K/uL Red Blood Count 4.63 4.2-5.4 M/uL Hemoglobin 12.7 12.0-16.0 g/dL Hematocrit 39.4 37-47 % Mean Corpuscular Volume 85.1 80-100 fL Mean Corpuscular Hemoglobin 27.4 25-34 pg Mean Corpuscular Hemoglobin Concent 32.2 32-36 g/dl Platelet Count 297 130-400 K/uL Mean Platelet Volume 9.2 7.4-10.4 fL Neutrophils (%) (Auto) 68.7 % Lymphocytes (%) (Auto) 18.9 % Monocytes (%) (Auto) 10.6 % Eosinophils (%) (Auto) 1.1 % Basophils (%) (Auto) 0.3 % Neutrophils # (Auto) 7.34 1.4-6.5 K/uL Lymphocytes # (Auto) 2.02 1.2-3.4 K/uL Monocytes # (Auto) 1.13 0.11-0.59 K/uL Eosinophils # (Auto) 0.12 0-0.5 K/uL Basophils # (Auto) 0.03 0-0.2 K/uL RDW Standard Deviation 43.6 36.4-46.3 fL RDW Coefficient of Variation 14.1 11.5-14.5 % Immature Granulocyte % (Auto) 0.4 % Immature Granulocyte # (Auto) 0.04 0.00-0.02 K/uL Prothrombin Time 10.7 9.0-12.0 SECONDS Prothromb Time International Ratio 1.0 0.9-1.1 Sodium Level 139 136-145 mmol/L Potassium Level 3.3 3.5-5.1 mmol/L Chloride Level 105 98-107 mmol/L Carbon Dioxide Level 29 21-32 mmol/L Anion Gap 6.0 3-11 mmol/L Blood Urea Nitrogen 21 7-18 mg/dl Creatinine 0.75 0.60-1.20 mg/dl Est Creatinine Clear Calc Drug Dose 90.6 ml/min Estimated GFR () 99.0 Estimated GFR (Non- 85.4 BUN/Creatinine Ratio 27.5 10-20 Random Glucose 92 70-99 mg/dl Calcium Level 8.7 8.5-10.1 mg/dl Magnesium Level 1.9 1.8-2.4 mg/dl Total Bilirubin 0.3 0.2-1 mg/dl Aspartate Amino Transf (AST/SGOT) 18 15-37 U/L Alanine Aminotransferase (ALT/SGPT) 22 12-78 U/L Alkaline Phosphatase 89 45-117 U/L Troponin I < 0.015 0-0.045 ng/ml Pro-B-Type Natriuretic Peptide 609 0-900 pg/ml Total Protein 7.5 6.4-8.2 gm/dl Albumin 3.3 3.4-5.0 gm/dl Globulin 4.2 2.5-4.0 gm/dl Albumin/Globulin Ratio 0.8 0.9-2 Chemistry Specimen Hemolysis Bedside Lactic Acid Venous 0.63 0.90-1.70 mmol/L Diagnostic Radiology CXR:No acute cardiopulmonary disease. EKG EKG: NSR, no signs of acute ischemia Impression H&P v2 Impression Assessment and Plan Hypoxia: Influenza B CXR: no signs of consolidation IV solumedrol given in ED Start on Tamiflu Duonebs PRN Oxygen support per protocol Patient already on Tapering prednisone for RA Lactase:normal Procalcitonin pending No plan to start on antibiotics for now Hypokalemia: Replace and monitor check magnesium levels Rheumatoid arthritis: Patient on chronic prednisone 5mg daily Follows with Continue Sulfasalazine Continue prednisone taper (Started by her upsetter helper) Patient not taking Methotrexate since 1 month Planned to be started on Humira as outpatient Hypertension: Elevated likely situational resume home meds: Amlodipine, Maxzide monitor Dyslipidemia: continue statins H/O Adenocarcinoma of uterus S/P hysterectomy Tobacco use disorder: Nicotine patch counseling specialist to quit Anxiety disorder: On Ativan PRN DVT Px: Lovenox SQ Code Status: Full Code Resuscitation Status VTE Prophylaxis Will order VTE Prophylaxis: Yes Physical Exam (per Admitting): General Appearance: WD/WN, no apparent distress Head: normocephalic, atraumatic Eyes: normal inspection, PERRL, EOMI, sclerae normal ENT: normal ENT inspection, hearing grossly normal Neck: supple, trachea midline Respiratory/Chest: chest non-tender, lungs clear, no respiratory distress, no accessory muscle use, + decreased breath sounds Cardiovascular: regular rate, rhythm, no murmur, + pertinent finding (Trace pedal edema) Abdomen/GI: normal bowel sounds, non tender, soft Back: normal inspection Extremities/Musculoskelatal: normal inspection, + pedal edema (Trace), + pertinent finding (RA changes of B/L metacarpophalangeal joints) Neurologic/Psych: community development planner II-XII nml as tested, no motor/sensory deficits, alert , normal mood/affect, oriented x 3 Skin: normal color, warm/dry Hospital Course INFLUENZA B Continue oseltamivir.-5 days in total Clinically a lot better but still requiring nasal cannula oxygen Has cough without any phlegm Minimal wheezing -will give Albuterol inhaler HYPOXIA Secondary to influenza B. Continue supplemental O2; wean as tolerated. We need to do 2 steps saturation test before discharge HYPERTENSION Continue amlodipine + HCTZ Controlled. HYPOKALEMIA K at time of admission 3.3. Probably secondary to HCTZ. Improve and normalized RA Continue prednisone. Hold MTX in light of influenza. VTE PROPHYLAXIS SQ enoxaparin. Ambulate. DISPOSITION Expected discharge to home. Medical follow-up with Dr. Brice. Discharge home today Total time spent on discharge = 35 minutes This includes examination of the patient, discharge planning, medication reconciliation, and communication with other providers. Discharge Instructions Date of Service Jun 14, 2017. Admission Reason for Admission: Hypoxia, Influenza Discharge Discharge Diagnosis / Problem: Influenza B Discharge Goals Goal(s): Prevent Disease Progression Activity Recommendations Activity Limitations: resume your previous activity . Instructions / Follow-Up Instructions / Follow-Up DR Garvey on 06/20/17 at 2:45PM Current Hospital Diet Patient's current hospital diet: AHA Diet (Heart Healthy) Discharge Diet Recommended Diet: AHA Diet (Heart Healthy) Pending Studies Studies pending at discharge: no Medical Emergencies . Who to Call and When: Medical Emergencies: If at any time you feel your situation is an emergency, please call 911 immediately. . Non-Emergent Contact Non-Emergency issues call your: Primary Care Provider . Past History Medical & Surgical History: (1) Influenza B (2) HTN (hypertension) (3) Rheumatoid arthritis (4) Dyslipidemia . "Provider Documentation" section prepared by Jesse Darby. . <Electronically signed by Jesse Darby M.D.> Signed: 06/14/17 [id number] Additional Copies To Corona Brice D.O.
== END 2017-06-14 15:15 | disposition home or self-care (01) | DRG 195 ==
LOC: C.EDB 21:03 → UNDOADMIN 06-12 00:24 → C.MS4W 06-12 00:24 → ENRESERV 06-12 01:14
PROVIDERS: ADMIT Internal Medicine; ATTEND Internal Medicine
DX: J10.1 Influenza due to other identified influenza virus with other respiratory manifestations (principal); R09.02 Hypoxemia; E87.6 Hypokalemia; M06.9 Rheumatoid arthritis, unspecified; I10 Essential (primary) hypertension; E78.5 Hyperlipidemia, unspecified; F17.200 Nicotine dependence, unspecified, uncomplicated; F41.9 Anxiety disorder, unspecified; Z85.42 Personal history of malignant neoplasm of other parts of uterus; Z90.710 Acquired absence of both cervix and uterus; Z79.52 Long term (current) use of systemic steroids; Z79.899 Other long term (current) drug therapy; Z82.49 Family history of ischemic heart disease and other diseases of the circulatory system; Z81.8 Family history of other mental and behavioral disorders

== ENCOUNTER 2018-06-14 17:41 | Inpatient (IN) ==
[2018-06-14] MEDS ORDERED: VANCOMYCIN HCL 1,000 MG/270 ML BAG IV STA (18:20)
[2018-06-14] MEDS ORDERED: VANCOMYCIN CONSULT ACTIVE PRN (18:20)
[2018-06-14] MEDS ORDERED: ALBUT/IPRATROP 3MG/0.5MG NEB 3 ML VIAL NEB STA (18:20)
[2018-06-14] MEDS ORDERED: ACETAMINOPHEN 1,000 MG/100 ML VIAL IV STA (18:20)
[2018-06-14] MEDS ORDERED: CEFEPIME 2,000 MG/12.5 ML VIAL IV STA (18:20)
[2018-06-14] MEDS ORDERED: SODIUM CHLORIDE 0.9% 1000ML 1,000 ML IV SCH (18:30)
[2018-06-14 19:01] LABS: Basophils # (auto) 0.02 K/uL (0-0.2); Basophils % (auto) 0.2 %; Hematocrit (blood only) 41.6 % (37-47); Hemoglobin 14.2 g/dL (12.0-16.0); Immature Granulocytes # (auto) 0.03 K/uL (0.00-0.02); Immature Granulocytes % (auto) 0.3 %; Lymphocytes # (auto) 0.54 K/uL (1.2-3.4); Lymphocytes % (auto) 6.2 %; Mean Corpuscular Hgb Conc 34.1 g/dL (32-36); Mean Corpuscular Volume 84.2 fL (80-100); Mean Platelet Volume 10.2 fL (7.4-10.4); Monocytes # (auto) 1.13 K/uL (0.11-0.59); Monocytes % (auto) 12.9 %; Neutrophils # (auto) 7.05 K/uL (1.4-6.5); Neutrophils % (auto) 80.4 %; Platelet Count 160 K/uL (130-400); RDW Coefficient of Variation 13.9 % (11.5-14.5); RDW Standard Deviation 42.9 fL (36.4-46.3); Red Blood Count 4.94 M/uL (4.2-5.4); White Blood Count 8.77 K/uL (4.8-10.8)
[2018-06-14 19:17] LABS: Albumin Level 3.1 gm/dl (3.4-5.0); BUN Creatinine Ratio 21.4 (10-20); Calcium 8.4 mg/dl (8.5-10.1); Creatinine Clr Calc Pharmacy 76.7 ml/min; Est GFR (African American) 79.9; Magnesium 1.8 mg/dl (1.8-2.4); Potassium 2.9 mmol/L (3.5-5.1)
[2018-06-14 19:17] LABS: Base Excess VBG 3.9 mEq/L; Oxygen Saturation VBG 86.7 %; pH VBG 7.44 (7.36-7.41)
[2018-06-14 19:33] LABS: Albumin Globulin Ratio 0.6 (0.9-2); Bilirubin,Total 0.6 mg/dl (0.2-1); Globulin 4.8 gm/dl (2.5-4.0); Total Protein 7.9 gm/dl (6.4-8.2); Troponin I 0.056 ng/ml (0-0.045)
[2018-06-14 19:42] LABS: Lyme Ab IgG w/WB Rflx Negative (Negative); Lyme Ab IgM w/WB Rflx Negative (Negative)
[2018-06-14] MEDS ORDERED: MAGNESIUM SULFATE / D5W 1 GM/100 ML BAG IV ONE (19:45)
[2018-06-14] MEDS ORDERED: OSELTAMIVIR PHOSPHATE 75 MG CAP PO STA (19:45)
[2018-06-14 19:57] LABS: Procalcitonin < 0.05 ng/ml (0-0.5)
--- NOTE | 2018-06-14 19:57 | XRay Report ---
XR chest 2V routine CLINICAL HISTORY: Fever. Cough. COMPARISON STUDY: 08/26/2017 FINDINGS: The heart is normal in size. There is slight interstitial thickening. There are more focal right lower lung zone airspace opacities, likely localized to the right middle lobe of the lateral vi ew. The findings are consistent with a pneumonia. There is also a nodular airspace opacity within the left lower lobe. This is also likely infectious/inflammatory. Films subsequent to treatment are ivan mmended in follow-up.[ IMPRESSION: 1. Bilateral pulmonary airspace opacities right greater than left, likely secondary to a multifocal p neumonia. Clinical correlation and films subsequent to treatment are recommended in follow-up Electronically signed by: Romulo Dalton M.D. 06/14/2018 7:55 PM
[2018-06-14] MEDS ORDERED: ASPIRIN CHEW 324 MG PO STA (20:01)
[2018-06-14] MEDS ORDERED: POTASSIUM CHLORIDE 10 MEQ TABCR PO STA (20:03)
[2018-06-14] MEDS ORDERED: AMPICILLIN/SULBACTAM SOD 3,000 MG in 0.9 % SODIUM CHLORIDE 100 ML IV STA (20:30)
[2018-06-14] MEDS: POTASSIUM CHLORIDE / WTR 10 MEQ/100 ML PLCT IV SCH ×2 (21:18→22:28)
[2018-06-14 21:34] LABS: Appearance Urine Cloudy (Clear); Bacteria Urine Automated Negative (Negative); Bilirubin Urine Negative (Negative); Blood Urine 1+ (Negative); Color Urine Dark Yellow; Epithelial Cell Urine Auto >30 /lpf (0-5); Glucose Urine UA Negative (Negative); Ketones Urine 1+ (Negative); Leukocyte Esterase Urine Negative (Negative); Nitrite Urine Negative (Negative); Protein Urine 2+ (Negative); Specific Gravity Urine 1.031 (1.000-1.030); Urobilinogen Urine Negative (Negative); pH Urine 5.5 (4.5-7.5)
[2018-06-14] MEDS ORDERED: AMLODIPINE BESYLATE 5 MG TAB PO ONE (22:04)
--- NOTE | 2018-06-14 23:17 | History & Physical Report ---
Date of Service June 14, 2018 Assessment & Plan (1) Acute hypoxemic respiratory failure: Secondary to COPD exacerbation secondary to community-acquired pneumonia (influenza)/possible aspiration Sepsis in an immunocompromised patient History rheumatoid arthritis on immunosuppressive regimen hypertension, elevated secondary to illness Troponin elevation secondary to illness ongoing tobacco abuse Hyperglycemia, likely steroid-induced; prediabetes (hemoglobin A1c of 6.1 last January 2017) Hypokalemia secondary to emesis Uterine cancer status post surgery Medical telemetry Supplemental O2 Solu-Medrol 1 dose now, augment daily steroid dose for now Cultures, Doxycycline, Zosyn Nebs RTC Tamiflu course Pulmonary consult RE respiratory failure Hold immunosuppressive agent Xeljanz for now given severity of infection. Follow troponin Check hemoglobin A1c Replace potassium Nicotine patch as needed PT OT eval DVT prophylaxis. Lovenox subcu Full code Total critical time was 45 minutes. History of Present Illness Chief Complaint: Cough, S OB Primary Care Provider: Corona Brice DO History obtained from patient and records. Medical history significant for COPD, rheumatoid arthritis on immunosuppression, hypertension, ongoing tobacco abuse, arthritis, uterine cancer status post surgery Recent confinement last year for hypoxemia, influenza. Last few days patient felt sick with malaise symptoms, generalized headache. Dry cough which later was noted to be junky and productive of greenish sputum. Increasing shortness of breath. At the ER, patient had an episode of emesis followed by worsening cough symptoms. Medical History as above Surgical History : Knee surgery, bunion surgery, BTL, TNA, subcutaneous neck tumor removal, gynecologic procedures Family History : Rheumatoid arthritis, diabetes, hypertension Personal/Social history : Half pack daily, no EtOH intake, disabled Allergies Allergy/AdvReac Type Severity Reaction Status Date / Time No Known Allergies Allergy Unverified 06/14/18 18:55 Home Medications Home Medications Medication Instructions Recorded Confirmed Type albuterol sulfate [ProAir HFA] 2 puff INHALATION Q4 PRN 06/14/18 06/14/18 History amlodipine 2.5 mg PO DAILY 06/14/18 06/14/18 History celecoxib [Celebrex] 200 mg PO DAILY 06/14/18 06/14/18 History fluticasone propionate [Flonase 1 spray INTRANASAL Q12 PRN 06/14/18 06/14/18 History Allergy Relief] folic acid 1 mg PO DAILY 06/14/18 06/14/18 History lorazepam [Ativan] 0.5 mg PO Q8 PRN 06/14/18 06/14/18 History mometasone-formoterol 2 puff INHALATION Q12H 06/14/18 06/14/18 History ondansetron HCl 4 mg PO QID PRN 06/14/18 06/14/18 History potassium chloride 20 meq PO BID 06/14/18 06/14/18 History prednisone 5 mg PO DAILY 06/14/18 06/14/18 History simvastatin [Zocor] 10 mg PO HS 06/14/18 06/14/18 History sulfasalazine 0.5 g PO BID 06/14/18 06/14/18 History tofacitinib [Xeljanz XR] 11 mg PO DAILY 06/14/18 06/14/18 History triamterene-hydrochlorothiazid 1 tab PO DAILY 06/14/18 06/14/18 History Past Med/Surg History Medical History Rheumatoid arthritis (Chronic) Dyslipidemia (Chronic) HTN (hypertension) (Chronic) Adenocarcinoma of uterus (Resolved) Surgical History H/O: hysterectomy (Resolved) Social History Preferred Language: [place] Information Broker Required: No Beliefs That Will Affect Care: None Current Living Situation: Spouse Current Living Situation Comment: lives with and grandchildren Other Information That Helps Us Care for You: No Feels Safe at Home: Yes Safety Concerns: Feels Safe At This Time Smoking Status: Current every day smoker Tobacco Type: cigarettes Cigarettes Per Day: pack per day Do You Dip or Chew Tobacco: No Second Hand Exposure: Yes Tobacco Cessation Education Requested by Patient: No Hx Alcohol Use: No Hx Substance Use: No Review of Systems Review of Systems: As per HPI, all 10 systems reviewed, all other ROS negative Physical Exam Physical Exam: GENERAL: Lethargic, minimal respiratory distress, obese SKIN: Normal color, warm HEENT: [place] palpebral conjunctivae, no ptosis, dry buccal mucosa NECK : Supple, no tenderness CHEST : Decreased breath sounds, bilateral rhonchi, no tenderness HEART : RRR, no obvious murmurs ABDOMEN: Some distention, nontender EXTREMITIES : No LE swelling/tenderness, no other conspicuous deformities noted NEUROLOGIC : Lethargic, no facial asymmetry, no other gross focality Results & Data Vital Signs (Past 12 Hours) Vital Signs Temp Pulse Resp BP Pulse Ox 06/14/18 22:10 78 14 96 06/14/18 22:00 74 25 H 126/68 92 06/14/18 21:50 72 27 H 93 06/14/18 21:40 70 24 93 06/14/18 21:30 36.9 C 69 27 H 108/57 L 94 06/14/18 21:20 74 25 H 92 06/14/18 21:10 74 28 H 92 06/14/18 21:00 91 06/14/18 20:40 78 28 H 91 06/14/18 20:30 78 28 H 92 06/14/18 20:20 78 22 92 06/14/18 20:10 83 33 H 92 06/14/18 20:00 79 15 93 06/14/18 19:50 81 26 H 92 06/14/18 19:47 81 27 H 94 06/14/18 19:21 85 31 H 176/90 H 91 06/14/18 19:20 85 26 H 91 06/14/18 19:10 85 24 92 06/14/18 19:00 83 33 H 176/90 H 95 06/14/18 18:53 86 24 95 06/14/18 18:50 84 18 95 06/14/18 18:46 83 33 H 95 06/14/18 18:45 83 32 H 152/86 H 95 06/14/18 18:16 83 34 H 216/109 H 95 06/14/18 17:57 39.1 C H 89 20 171/87 H 88 L Laboratory Results Laboratory Results WBC 8.77 K/uL (4.8-10.8) 06/14/18 18:47 RBC 4.94 M/uL (4.2-5.4) 06/14/18 18:47 Hgb 14.2 g/dL (12.0-16.0) 06/14/18 18:47 Hct 41.6 % (37-47) 06/14/18 18:47 MCV 84.2 fL (80-100) 06/14/18 18:47 MCH 28.7 pg (25-34) 06/14/18 18:47 MCHC 34.1 g/dL (32-36) 06/14/18 18:47 RDW Std Deviation 42.9 fL (36.4-46.3) 06/14/18 18:47 RDW Coeff of Stella 13.9 % (11.5-14.5) 06/14/18 18:47 Plt Count 160 K/uL (130-400) 06/14/18 18:47 MPV 10.2 fL (7.4-10.4) 06/14/18 18:47 Immature Gran % (Auto) 0.3 % 06/14/18 18:47 Neut % (Auto) 80.4 % 06/14/18 18:47 Lymph % (Auto) 6.2 % 06/14/18 18:47 [place] % (Auto) 12.9 % 06/14/18 18:47 Eos % (Auto) 0.0 % 06/14/18 18:47 Baso % (Auto) 0.2 % 06/14/18 18:47 Immature Gran # (Auto) 0.03 K/uL (0.00-0.02) H 06/14/18 18:47 Neut # (Auto) 7.05 K/uL (1.4-6.5) H 06/14/18 18:47 Lymph # (Auto) 0.54 K/uL (1.2-3.4) L 06/14/18 18:47 [place] # (Auto) 1.13 K/uL (0.11-0.59) H 06/14/18 18:47 Eos # (Auto) 0.00 K/uL (0-0.5) 06/14/18 18:47 Baso # (Auto) 0.02 K/uL (0-0.2) 06/14/18 18:47 VBG pH 7.44 (7.36-7.41) H 06/14/18 19:01 VBG pCO2 43 mmHg (38-50) 06/14/18 19:01 VBG pO2 53 mmHg 06/14/18 19:01 VBG HCO3 29 mmol/L 06/14/18 19: VBG O2 Saturation 86.7 % 06/14/18 19:01 VBG Base Excess 3.9 mEq/L 06/14/18 19: Barometric Pressure 726.0 mm/Hg 06/14/18 19:01 Sodium 134 mmol/L (136-145) L 06/14/18 18:47 Potassium 2.9 mmol/L (3.5-5.1) L 06/14/18: Chloride 100 mmol/L (98-107) 06/14/18 18:47 Carbon Dioxide 28 mmol/L (21-32) 06/14/18 18:47 Anion Gap 6.0 (3-11) 06/14/18 18:47 BUN 19 mg/dl (7-18) H 06/14/18 18:47 Creatinine 0.89 mg/dl (0.6-1.2) 06/14/18 18:47 Est Cr Clr Drug Dosing 76.7 ml/min 06/14/18 18:47 Est GFR ( Amer) 79.9 06/14/18 18:47 Est GFR (Non-Af Amer) 69.0 06/14/18 18:47 BUN/Creatinine Ratio 21.4 (10-20) H 06/14/18 18:47 Glucose 116 mg/dl (70-99) H 06/14/18 18:47 Lactate 1.1 mmol/L (0.4-2.0) 06/14/18 18:47 Calcium 8.4 mg/dl (8.5-10.1) L 06/14/18 18:47 Magnesium 1.8 mg/dl (1.8-2.4) 06/14/18 18:47 Total Bilirubin 0.6 mg/dl (0.2-1) 06/14/18 18:47 AST 20 U/L (15-37) 06/14/18 18:47 ALT 17 U/L (12-78) 06/14/18 18:47 Alkaline Phosphatase 84 U/L (45-117) 06/14/18 18:47 Troponin I 0.056 ng/ml (0-0.045) H* 06/14/18 18:47 Total Protein 7.9 gm/dl (6.4-8.2) 06/14/18 18:47 Albumin 3.1 gm/dl (3.4-5.0) L 06/14/18 18:47 Globulin 4.8 gm/dl (2.5-4.0) H 06/14/18 18:47 Albumin/Globulin Ratio 0.6 (0.9-2) L 06/14/18 18:47 Procalcitonin < 0.05 ng/ml (0-0.5) 06/14/18 18:47 Urine Color Dark Yellow 06/14/18 21:00 Urine Appearance Cloudy (Clear) H 06/14/18 21:00 Urine pH 5.5 (4.5-7.5) 06/14/18 21:00 Ur Specific [place] 1.031 (1.000-1.030) H 06/14/18 21:00 Urine Protein 2+ (Negative) H 06/14/18 21:00 Urine Glucose (UA) Negative (Negative) 06/14/18 21:00 Urine Ketones 1+ (Negative) H 06/14/18 21:00 Urine Blood 1+ (Negative) H 06/14/18 21:00 Urine Nitrite Negative (Negative) 06/14/18 21:00 Urine Bilirubin Negative (Negative) 06/14/18 21:00 Urine Urobilinogen Negative (Negative) 06/14/18 21:00 Ur Leukocyte Esterase Negative (Negative) 06/14/18 21:00 Urine WBC (Auto) 1-5 /hpf (0-5) 06/14/18 21:00 Urine RBC (Auto) 5-10 /hpf (0-4) H 06/14/18 21:00 U Hyaline Cast (Auto) 10-30 /lpf (0-5) H 06/14/18 21:00 U Epithel Cells (Auto) >30 /lpf (0-5) H 06/14/18 21:00 Urine Bacteria (Auto) Negative (Negative) 06/14/18 21:00 Lyme Disease IgG Ab Negative (Negative) 06/14/18 18:47 Lyme Disease IgM Ab Negative (Negative) 06/14/18 18:47 Influenza Type A Ag Neg for Influ A (Neg) 06/14/18 18:53 Influenza Type B Ag Pos for Influ B (Neg) A* 06/14/18 18:53 Diagnostic Findings Chest x-ray showed 1. Bilateral pulmonary airspace opacities right greater than left, likely secondary to a multifocal pneumonia. Clinical correlation and films subsequent to treatment are recommended in follow-up EKG as per my interpretation : Rate 80, NSR, T wave flattening inferior leads
--- NOTE | 2018-06-14 23:54 | Emergency Department Note ---
History of Present Illness General Chief complaint: Illness Stated complaint: SOB, COUGH, HEADACHE, FATIGUE History of Present Illness Maximum Pain Intensity: 8 This is a 63-year-old female presenting to the emergency department for evaluation of shortness of breath and difficulty breathing over the past 1 day. The patient reports having an increased cough that is sometimes productive. She reports a history of chronic tobacco use, but denies having symptoms like this in the past. She has difficulty walking as she becomes very short of breath quickly. The patient does have some chest pain with coughing. 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 The patient has not taken anything [id number] f or her symptoms. She rates her overall discomfort in 10/06. She is on Xeljanz for rheumatoid arthritis and would be considered immunocompromised. Home Medications Home Medications Medication Instructions Recorded Confirmed Type albuterol sulfate [ProAir HFA] 2 puff INHALATION Q4 PRN 06/14/18 06/14/18 History amlodipine 2.5 mg PO DAILY 06/14/18 06/14/18 History celecoxib [Celebrex] 200 mg PO DAILY 06/14/18 06/14/18 History fluticasone propionate [Flonase 1 spray INTRANASAL Q12 PRN 06/14/18 06/14/18 History Allergy Relief] folic acid 1 mg PO DAILY 06/14/18 06/14/18 History lorazepam [Ativan] 0.5 mg PO Q8 PRN 06/14/18 06/14/18 History mometasone-formoterol 2 puff INHALATION Q12H 06/14/18 06/14/18 History ondansetron HCl 4 mg PO QID PRN 06/14/18 06/14/18 History potassium chloride 20 meq PO BID 06/14/18 06/14/18 History prednisone 5 mg PO DAILY 06/14/18 06/14/18 History simvastatin [Zocor] 10 mg PO HS 06/14/18 06/14/18 History sulfasalazine 0.5 g PO BID 06/14/18 06/14/18 History tofacitinib [Xeljanz XR] 11 mg PO DAILY 06/14/18 06/14/18 History triamterene-hydrochlorothiazid 1 tab PO DAILY 06/14/18 06/14/18 History Allergies Allergy/AdvReac Type Severity Reaction Status Date / Time No Known Allergies Allergy Unverified 06/14/18 18:55 Past Med/Surg History Medical History Rheumatoid arthritis (Chronic) Dyslipidemia (Chronic) HTN (hypertension) (Chronic) Adenocarcinoma of uterus (Resolved) Surgical History H/O: hysterectomy (Resolved) Social History Preferred Language: Frisian [employer] Assistant Required: No Beliefs That Will Affect Care: None Current Living Situation: Spouse Current Living Situation Comment: lives with and grandchildren Other Information That Helps Us Care for You: No Feels Safe at Home: Yes Safety Concerns: Feels Safe At This Time Smoking Status: Current every day smoker Tobacco Type: cigarettes Cigarettes Per Day: pack per day Do You Dip or Chew Tobacco: No Second Hand Exposure: Yes Tobacco Cessation Education Requested by Patient: No Hx Alcohol Use: No Hx Substance Use: No Review of Systems A total of 10 systems reviewed and were otherwise negative Physical Exam Vital Signs Vital Signs - 24 hr 06/14/18 17:57 06/14/18 18:16 06/14/18 18:45 Temperature 39.1 C H Temperature Source Oral Sepsis Recent Fever Within 48 Hours Yes Sepsis Action Taken by Nursing No Action Required Pulse Rate 89 83 83 Pulse Rate [Left Apical] Pulse Rate from SpO2 Sensor 83 82 Pulse Rhythm Pulse Rhythm [Left Apical] Pulse Strength [Left Apical] Respiratory Rate 20 34 H 32 H Respiratory Effort / Characteristics Respiratory Depth Respiratory Pattern Blood Pressure 171/87 H 216/109 H 152/86 H Blood Pressure [Right Arm] Blood Pressure Mean 115 144 108 Blood Pressure Mean [Right Arm] Blood Pressure Position Right Lateral Blood Pressure Position [Right Arm] Pulse Oximetry 88 L 95 95 Oxygen Delivery Method Room Air Oxygen Flow Rate 06/14/18 18:46 06/14/18 18:50 06/14/18 18:53 Temperature Temperature Source Sepsis Recent Fever Within 48 Hours Sepsis Action Taken by Nursing Pulse Rate 83 84 86 Pulse Rate [Left Apical] Pulse Rate from SpO2 Sensor 83 84 Pulse Rhythm Regular Pulse Rhythm [Left Apical] Pulse Strength [Left Apical] Respiratory Rate 33 H 18 24 Respiratory Effort / Characteristics Respiratory Depth Respiratory Pattern Blood Pressure Blood Pressure [Right Arm] Blood Pressure Mean Blood Pressure Mean [Right Arm] Blood Pressure Position Blood Pressure Position [Right Arm] Pulse Oximetry 95 95 95 Oxygen Delivery Method Nasal Cannula Oxygen Flow Rate 4 06/14/18 19:00 06/14/18 19:10 06/14/18 19:20 Temperature Temperature Source Sepsis Recent Fever Within 48 Hours Sepsis Action Taken by Nursing Pulse Rate 83 85 85 Pulse Rate [Left Apical] Pulse Rate from SpO2 Sensor 83 85 85 Pulse Rhythm Pulse Rhythm [Left Apical] Pulse Strength [Left Apical] Respiratory Rate 33 H 24 26 H Respiratory Effort / Characteristics Respiratory Depth Respiratory Pattern Blood Pressure 176/90 H Blood Pressure [Right Arm] Blood Pressure Mean 118 Blood Pressure Mean [Right Arm] Blood Pressure Position Blood Pressure Position [Right Arm] Pulse Oximetry 95 92 91 Oxygen Delivery Method Oxygen Flow Rate 06/14/18 19:21 06/14/18 19:47 06/14/18 19:50 Temperature Temperature Source Sepsis Recent Fever Within 48 Hours Sepsis Action Taken by Nursing Pulse Rate 85 81 81 Pulse Rate [Left Apical] Pulse Rate from SpO2 Sensor 87 81 81 Pulse Rhythm Pulse Rhythm [Left Apical] Pulse Strength [Left Apical] Respiratory Rate 31 H 27 H 26 H Respiratory Effort / Characteristics Respiratory Depth Respiratory Pattern Blood Pressure 176/90 H Blood Pressure [Right Arm] Blood Pressure Mean 118 Blood Pressure Mean [Right Arm] Blood Pressure Position Blood Pressure Position [Right Arm] Pulse Oximetry 91 94 92 Oxygen Delivery Method Oxygen Flow Rate 06/14/18 20:00 06/14/18 20:10 06/14/18 20:20 Temperature Temperature Source Sepsis Recent Fever Within 48 Hours Sepsis Action Taken by Nursing Pulse Rate 79 83 78 Pulse Rate [Left Apical] Pulse Rate from SpO2 Sensor 79 83 77 Pulse Rhythm Pulse Rhythm [Left Apical] Pulse Strength [Left Apical] Respiratory Rate 15 33 H 22 Respiratory Effort / Characteristics Respiratory Depth Respiratory Pattern Blood Pressure Blood Pressure [Right Arm] Blood Pressure Mean Blood Pressure Mean [Right Arm] Blood Pressure Position Blood Pressure Position [Right Arm] Pulse Oximetry 93 92 92 Oxygen Delivery Method Oxygen Flow Rate 06/14/18 20:30 06/14/18 20:40 06/14/18 21:00 Temperature Temperature Source Sepsis Recent Fever Within 48 Hours Sepsis Action Taken by Nursing Pulse Rate 78 78 Pulse Rate [Left Apical] Pulse Rate from SpO2 Sensor 78 77 77 Pulse Rhythm Pulse Rhythm [Left Apical] Pulse Strength [Left Apical] Respiratory Rate 28 H 28 H Respiratory Effort / Characteristics Respiratory Depth Respiratory Pattern Blood Pressure Blood Pressure [Right Arm] Blood Pressure Mean Blood Pressure Mean [Right Arm] Blood Pressure Position Blood Pressure Position [Right Arm] Pulse Oximetry 92 91 91 Oxygen Delivery Method Oxygen Flow Rate 06/14/18 21:10 06/14/18 21:20 06/14/18 21:30 Temperature 36.9 C Temperature Source Sepsis Recent Fever Within 48 Hours Sepsis Action Taken by Nursing Pulse Rate 74 74 69 Pulse Rate [Left Apical] Pulse Rate from SpO2 Sensor 74 73 69 Pulse Rhythm Pulse Rhythm [Left Apical] Pulse Strength [Left Apical] Respiratory Rate 28 H 25 H 27 H Respiratory Effort / Characteristics Respiratory Depth Respiratory Pattern Blood Pressure 108/57 L Blood Pressure [Right Arm] Blood Pressure Mean 74 Blood Pressure Mean [Right Arm] Blood Pressure Position Blood Pressure Position [Right Arm] Pulse Oximetry 92 92 94 Oxygen Delivery Method Oxygen Flow Rate 06/14/18 21:40 06/14/18 21:50 06/14/18 22:00 Temperature Temperature Source Sepsis Recent Fever Within 48 Hours Sepsis Action Taken by Nursing Pulse Rate 70 72 74 Pulse Rate [Left Apical] Pulse Rate from SpO2 Sensor 71 72 74 Pulse Rhythm Pulse Rhythm [Left Apical] Pulse Strength [Left Apical] Respiratory Rate 24 27 H 25 H Respiratory Effort / Characteristics Respiratory Depth Respiratory Pattern Blood Pressure 126/68 Blood Pressure [Right Arm] Blood Pressure Mean 87 Blood Pressure Mean [Right Arm] Blood Pressure Position Blood Pressure Position [Right Arm] Pulse Oximetry 93 93 92 Oxygen Delivery Method Oxygen Flow Rate 06/14/18 22:10 06/14/18 22:20 06/14/18 22:30 Temperature Temperature Source Sepsis Recent Fever Within 48 Hours Sepsis Action Taken by Nursing Pulse Rate 78 79 73 Pulse Rate [Left Apical] Pulse Rate from SpO2 Sensor 76 78 73 Pulse Rhythm Pulse Rhythm [Left Apical] Pulse Strength [Left Apical] Respiratory Rate 14 11 L 30 H Respiratory Effort / Characteristics Respiratory Depth Respiratory Pattern Blood Pressure 115/61 Blood Pressure [Right Arm] Blood Pressure Mean 79 Blood Pressure Mean [Right Arm] Blood Pressure Position Blood Pressure Position [Right Arm] Pulse Oximetry 96 94 90 Oxygen Delivery Method Oxygen Flow Rate 06/14/18 22:40 06/14/18 22:50 06/14/18 23:00 Temperature Temperature Source Sepsis Recent Fever Within 48 Hours Sepsis Action Taken by Nursing Pulse Rate 72 71 70 Pulse Rate [Left Apical] Pulse Rate from SpO2 Sensor 72 71 67 Pulse Rhythm Pulse Rhythm [Left Apical] Pulse Strength [Left Apical] Respiratory Rate 24 25 H 25 H Respiratory Effort / Characteristics Respiratory Depth Respiratory Pattern Blood Pressure 101/56 L Blood Pressure [Right Arm] Blood Pressure Mean 71 Blood Pressure Mean [Right Arm] Blood Pressure Position Blood Pressure Position [Right Arm] Pulse Oximetry 90 93 92 Oxygen Delivery Method Oxygen Flow Rate 06/14/18 23:10 06/14/18 23:20 06/14/18 23:30 Temperature Temperature Source Sepsis Recent Fever Within 48 Hours Sepsis Action Taken by Nursing Pulse Rate 69 82 71 Pulse Rate [Left Apical] Pulse Rate from SpO2 Sensor 69 78 72 Pulse Rhythm Pulse Rhythm [Left Apical] Pulse Strength [Left Apical] Respiratory Rate 26 H 39 H 27 H Respiratory Effort / Characteristics Respiratory Depth Respiratory Pattern Blood Pressure 117/63 Blood Pressure [Right Arm] Blood Pressure Mean 81 Blood Pressure Mean [Right Arm] Blood Pressure Position Blood Pressure Position [Right Arm] Pulse Oximetry 92 94 91 Oxygen Delivery Method Oxygen Flow Rate 06/14/18 23:40 06/14/18 23:50 06/15/18 00:00 Temperature Temperature Source Sepsis Recent Fever Within 48 Hours Sepsis Action Taken by Nursing Pulse Rate 70 68 66 Pulse Rate [Left Apical] Pulse Rate from SpO2 Sensor 70 68 66 Pulse Rhythm Pulse Rhythm [Left Apical] Pulse Strength [Left Apical] Respiratory Rate 27 H 24 24 Respiratory Effort / Characteristics Respiratory Depth Respiratory Pattern Blood Pressure 104/56 L Blood Pressure [Right Arm] Blood Pressure Mean 72 Blood Pressure Mean [Right Arm] Blood Pressure Position Blood Pressure Position [Right Arm] Pulse Oximetry 92 92 93 Oxygen Delivery Method Oxygen Flow Rate 06/15/18 00:10 06/15/18 02:26 06/15/18 02:30 Temperature 36.7 C Temperature Source Oral Sepsis Recent Fever Within 48 Hours Sepsis Action Taken by Nursing Pulse Rate 61 89 Pulse Rate [Left Apical] 88 Pulse Rate from SpO2 Sensor 66 Pulse Rhythm Pulse Rhythm [Left Apical] Regular Pulse Strength [Left Apical] Normal Respiratory Rate 16 24 Respiratory Effort / Characteristics SOB on Exertion Respiratory Depth Normal Respiratory Pattern Regular Blood Pressure 116/61 Blood Pressure [Right Arm] 172/80 H Blood Pressure Mean Blood Pressure Mean [Right Arm] 110 Blood Pressure Position Blood Pressure Position [Right Arm] Lying Pulse Oximetry 94 92 Oxygen Delivery Method Room Air Nasal Cannula Oxygen Flow Rate 3 06/15/18 02:57 06/15/18 04:00 06/15/18 07:15 Temperature 37.1 C Temperature Source Oral Sepsis Recent Fever Within 48 Hours Sepsis Action Taken by Nursing Pulse Rate Pulse Rate [Left Apical] 87 86 82 Pulse Rate from SpO2 Sensor Pulse Rhythm Pulse Rhythm [Left Apical] Regular Pulse Strength [Left Apical] Normal Respiratory Rate 22 20 18 Respiratory Effort / Characteristics Non-Labored Spontaneous Non-Labored Spontaneous Non-Labored Spontaneous Respiratory Depth Normal Respiratory Pattern Regular Blood Pressure Blood Pressure [Right Arm] 127/71 Blood Pressure Mean Blood Pressure Mean [Right Arm] 89 Blood Pressure Position Blood Pressure Position [Right Arm] Lying Pulse Oximetry 92 96 93 Oxygen Delivery Method Nasal Cannula Nasal Cannula Nasal Cannula Oxygen Flow Rate 3 3 3 06/15/18 07:42 Temperature 37.0 C Temperature Source Oral Sepsis Recent Fever Within 48 Hours Sepsis Action Taken by Nursing Pulse Rate Pulse Rate [Left Apical] 83 Pulse Rate from SpO2 Sensor Pulse Rhythm Pulse Rhythm [Left Apical] Pulse Strength [Left Apical] Respiratory Rate 18 Respiratory Effort / Characteristics Respiratory Depth Respiratory Pattern Blood Pressure Blood Pressure [Right Arm] 145/79 H Blood Pressure Mean Blood Pressure Mean [Right Arm] 101 Blood Pressure Position Blood Pressure Position [Right Arm] Pulse Oximetry 93 Oxygen Delivery Method Nasal Cannula Oxygen Flow Rate 3 VITALS: Vitals are noted on the nurse's note and reviewed by myself. Vital signs with fever and hypoxia. GENERAL: Acutely ill-appearing female who is unable to answer questions in full sentences as she is having difficulty with breathing. HEAD: Normocephalic atraumatic. EYES: Pupils equal round and reactive to light and accommodation. Conjunctivae without injection, sclerae without icterus. Extraocular movements intact. MOUTH: Mucous membranes moist. Tonsils are not enlarged. Pharynx without erythema, blood, or exudate. Uvula midline. Airway patent. NECK: Supple without nuchal rigidity. No lymphadenopathy. No thyromegaly. Cervical spine is nontender. HEART: Regular rate and rhythm without murmurs gallops or rubs. LUNGS: Overall decreased breath sounds with scattered wheezing and rhonchi ABDOMEN: Positive normal bowel sounds x 4. Soft, nontender, without masses or organomegaly. MUSCULOSKELETAL: No muscle atrophy, erythema, or edema noted. Full range of motion in all extremities. No posterior calf tenderness NEURO: Patient was alert and oriented to person place and time. CN II through XII grossly intact. SKIN: The skin was without rashes, erythema, edema, or bruising. Capillary refill less than 2 seconds. Course Administered Medications Amlodipine Besylate (Norvasc) 2.5 mg PO DAILY KEENAN Stop: 07/15/18 08:59 Last Admin: 06/15/18 08:44 Dose: 2.5 mg Documented by: [id number] Enoxaparin Sodium (Lovenox) 40 mg SQ QAM KEENAN Stop: 07/15/18 08:59 Last Admin: 06/15/18 08:45 Dose: 40 mg Documented by: [id number] Folic Acid (Folvite) 1 mg PO DAILY KEENAN Stop: 07/15/18 08:59 Last Admin: 06/15/18 08:44 Dose: 1 mg Documented by: [id number] Potassium Chloride/Sodium Chloride (Normal Saline W/20 Meq Kcl) 20 meq in 1,000 mls @ 60 mls/hr IV .[id number] STA Stop: 06/15/18 19:09 Last Admin: 06/15/18 03:01 Dose: 60 mls/hr Documented by: [id number] Piperacillin Sod/Tazobactam (Sod 4.5 gm/ Dextrose) 120 mls @ 30 mls/hr IV Q8H [facility]; Protocol Stop: 06/22/18 07:59 Last Admin: 06/15/18 08:43 Dose: 30 mls/hr Documented by: [id number] Ipratropium [place] (Atrovent 0.02% 0.5mg/2.5ml) 0.5 mg INH Q6R [facility] Stop: 07/15/18 07:59 Last Admin: 06/15/18 07:13 Dose: 0.5 mg Documented by: [id number] Levalbuterol HCl (Xopenex 1.25mg/0.5ml Neb) 1.25 mg INH Q6R KEENAN Stop: 07/15/18 02:18 Last Admin: 06/15/18 07:13 Dose: 1.25 mg Documented by: [id number] Admin: 06/15/18 02:55 Dose: 1.25 mg Documented by: [id number] Lorazepam (Ativan) 0.25 mg PO Q8 PRN PRN Reason: Anxiety Stop: 07/15/18 02:18 Last Admin: 06/15/18 05:07 Dose: 0.25 mg Documented by: [id number] Oseltamivir Phosphate (Tamiflu) 75 mg PO BID [facility] Stop: 06/20/18 08:59 Last Admin: 06/15/18 08:45 Dose: 75 mg Documented by: [id number] Prednisone (Prednisone) 20 mg PO DAILY [facility] Stop: 07/15/18 08:59 Last Admin: 06/15/18 08:44 Dose: 20 mg Documented by: [id number] Sulfadiazine (Azulfidine) 500 mg PO BID KEENAN Stop: 07/15/18 08:59 Last Admin: 06/15/18 08:45 Dose: 500 mg Documented by: [id number] Discontinued Medications Albuterol (Duoneb) 3 ml NEB NOW STA Stop: 06/14/18 18:21 Last Admin: 06/14/18 18:55 Dose: 3 ml Documented by: [id number] Amlodipine Besylate (Norvasc) 2.5 mg PO NOW ONE Stop: 06/14/18 22:05 Last Admin: 06/14/18 22:15 Dose: 2.5 mg Documented by: [id number] Aspirin (Aspirin) 324 mg PO NOW STA Stop: 06/14/18 20:02 Last Admin: 06/14/18 21:15 Dose: 324 mg Documented by: [id number] Vancomycin HCl (Vancomycin Hcl) 1,000 mg in 270 mls @ 125 mls/hr IV NOW STA Stop: 06/14/18 20:29 Last Infusion: 06/15/18 02:21 Dose: 0 mls/hr Documented by: [id number] Infusion: 06/14/18 20:27 Dose: 0 mls/hr Documented by: [id number] Admin: 06/14/18 18:57 Dose: 125 mls/hr Documented by: [id number] Acetaminophen (Ofirmev) 1,000 mg in 100 mls @ 400 mls/hr IV NOW STA Stop: 06/14/18 18:34 Last Infusion: 06/14/18 19:05 Dose: 0 mls/hr Documented by: [id number] Admin: 06/14/18 18:50 Dose: 400 mls/hr Documented by: [id number] Sodium Chloride (Nss 1000ml) 1,000 mls @ 999 mls/hr IV .Q1H1M [facility]EENA[facility] Stop: 06/14/18 19:30 Last Infusion: 06/14/18 20:27 Dose: 0 mls/hr Documented by: [id number] Admin: 06/14/18 18:57 Dose: 999 mls/hr Documented by: [id number] Cefepime HCl (Maxipime) 2,000 mg in 12.5 mls @ 3.125 mls/min IV NOW STA Stop: 06/14/18 18:23 Last Admin: 04/18/19 18:57 Dose: 3.125 mls/min Documented by: [id number] Potassium Chloride (K [place] / Wtr) 10 meq in 100 mls @ 100 mls/hr IV Q1H [facility] Stop: 06/14/18 21:44 Last Infusion: 06/15/18 00:09 Dose: 0 mls/hr Documented by: [id number] Admin: 06/14/18 22:28 Dose: 100 mls/hr Documented by: [id number] Infusion: 06/14/18 22:18 Dose: 100 mls/hr Documented by: [id number] Admin: 06/14/18 21:18 Dose: 100 mls/hr Documented by: [id number] Magnesium Sulfate/Dextrose (Magnesium Sulfate / D5w) 1 gm in 100 mls @ 100 mls/hr IV ONE ONE Stop: 06/14/18 20:44 Last Infusion: 06/14/18 22:43 Dose: 0 mls/hr Documented by: [id number] Admin: 06/14/18 21:21 Dose: 100 mls/hr Documented by: [id number] Ampicillin Sodium/Sulbactam Sodium 3,000 mg/ Sodium Chloride 108 mls @ 200 mls/hr IV 2030 STA Stop: 06/14/18 21:02 Last Infusion: 06/14/18 21:45 Dose: 0 mls/hr Documented by: [id number] Admin: 06/14/18 21:00 Dose: 200 mls/hr Documented by: [id number] Doxycycline Hyclate 100 mg/ (Dextrose) 110 mls @ 50 mls/hr IV NOW STA Stop: 06/15/18 04:30 Last Infusion: 06/15/18 06:44 Dose: 0 mls/hr Documented by: [id number] Admin: 06/15/18 04:30 Dose: 50 mls/hr Documented by: [id number] Piperacillin Sod/Tazobactam (Sod 4.5 gm/ Dextrose) 120 mls @ 200 mls/hr IV NOW ONE; Protocol Stop: 06/15/18 03:35 Last Infusion: 06/15/18 03:45 Dose: 0 mls/hr Documented by: [id number] Admin: 06/15/18 03:01 Dose: 200 mls/hr Documented by: [id number] Methylprednisolone (Solumedrol) 20 mg IV NOW STA Stop: 06/14/18 20:04 Last Admin: 06/14/18 21:13 Dose: 20 mg Documented by: [id number] Oseltamivir Phosphate (Tamiflu) 75 mg PO NOW STA Stop: 06/14/18 19:46 Last Admin: 06/14/18 21:15 Dose: 75 mg Documented by: [id number] Potassium Chloride (Klor-Con M10) 50 meq PO NOW STA Stop: 06/14/18 20:04 Last Admin: 06/14/18 21:15 Dose: 50 meq Documented by: [id number] Medical Decision Making Differential Diagnosis Differential diagnosis: Etiologies such as viral syndrome, otitis, pharyngitis, pneumonia, influenza, meningitis, urinary tract infection, septic arthritis, soft tissue infectious process, intra-abdominal process, sepsis, bacteremia, as well as others were entertained. Laboratory Data Result diagrams: 06/14/18 18:47 06/14/18 18:47 Lab Results 06/14/18 06/14/18 06/14/18 Range/Units 18:47 18:47 18:47 WBC 8.77 (4.8-10.8) K/uL RBC 4.94 (4.2-5.4) M/uL Hgb 14.2 (12.0-16.0) g/dL Hct 41.6 (37-47) % MCV 84.2 (80-100) fL MCH 28.7 (25-34) pg MCHC 34.1 (32-36) g/dL RDW Std Deviation 42.9 (36.4-46.3) fL RDW Coeff of Stella 13.9 (11.5-14.5) % Plt Count 160 (130-400) K/uL MPV 10.2 (7.4-10.4) fL Immature Gran % (Auto) 0.3 % Neut % (Auto) 80.4 % Lymph % (Auto) 6.2 % [place]duff[place] % (Auto) 12.9 % Eos % (Auto) 0.0 % Baso % (Auto) 0.2 % Immature Gran # (Auto) 0.03 H (0.00-0.02) K/uL Neut # (Auto) 7.05 H (1.4-6.5) K/uL Lymph # (Auto) 0.54 L (1.2-3.4) K/uL [place] # (Auto) 1.13 H (0.11-0.59) K/uL Eos # (Auto) 0.00 (0-0.5) K/uL Baso # (Auto) 0.02 (0-0.2) K/uL VBG pH (7.36-7.41) VBG pCO2 (38-50) mmHg VBG pO2 mmHg VBG HCO3 mmol/L VBG O2 Saturation % VBG Base Excess mEq/L Barometric Pressure mm/Hg Sodium 134 L (136-145) mmol/L Potassium 2.9 L (3.5-5.1) mmol/L Chloride 100 (98-107) mmol/L Carbon Dioxide 28 (21-32) mmol/L Anion Gap 6.0 (3-11) BUN 19 H (7-18) mg/dl Creatinine 0.89 (0.6-1.2) mg/dl Est Cr Clr Drug Dosing 76.7 ml/min Est GFR ( Amer) 79.9 Est GFR (Non-Af Amer) 69.0 BUN/Creatinine Ratio 21.4 H (10-20) Glucose 116 H (70-99) mg/dl Lactate 1.1 (0.4-2.0) mmol/L Calcium 8.4 L (8.5-10.1) mg/dl Magnesium 1.8 (1.8-2.4) mg/dl Total Bilirubin 0.6 (0.2-1) mg/dl AST 20 (15-37) U/L ALT 17 (12-78) U/L Alkaline Phosphatase 84 (45-117) U/L Troponin I 0.056 H* (0-0.045) ng/ml Total Protein 7.9 (6.4-8.2) gm/dl Albumin 3.1 L (3.4-5.0) gm/dl Globulin 4.8 H (2.5-4.0) gm/dl Albumin/Globulin Ratio 0.6 L (0.9-2) Procalcitonin (0-0.5) ng/ml Urine Color Urine Appearance (Clear) Urine pH (4.5-7.5) Ur Specific [place] (1.000-1.030) Urine Protein (Negative) Urine Glucose (UA) (Negative) Urine Ketones (Negative) Urine Blood (Negative) Urine Nitrite (Negative) Urine Bilirubin (Negative) Urine Urobilinogen (Negative) Ur Leukocyte Esterase (Negative) Urine WBC (Auto) (0-5) /hpf Urine RBC (Auto) (0-4) /hpf U Hyaline Cast (Auto) (0-5) /lpf U Epithel Cells (Auto) (0-5) /lpf Urine Bacteria (Auto) (Negative) Lyme Disease IgG Ab (Negative) Lyme Disease IgM Ab (Negative) Influenza Type A Ag (Neg) Influenza Type B Ag (Neg) 06/14/18 06/14/18 06/14/18 Range/Units 18:47 18:53 19:01 WBC (4.8-10.8) K/uL RBC (4.2-5.4) M/uL Hgb (12.0-16.0) g/dL Hct (37-47) % MCV (80-100) fL MCH (25-34) pg MCHC (32-36) g/dL RDW Std Deviation (36.4-46.3) fL RDW Coeff of Stella (11.5-14.5) % Plt Count (130-400) K/uL MPV (7.4-10.4) fL Immature Gran % (Auto) % Neut % (Auto) % Lymph % (Auto) % [place]duff[place] % (Auto) % Eos % (Auto) % Baso % (Auto) % Immature Gran # (Auto) (0.00-0.02) K/uL Neut # (Auto) (1.4-6.5) K/uL Lymph # (Auto) (1.2-3.4) K/uL [place] # (Auto) (0.11-0.59) K/uL Eos # (Auto) (0-0.5) K/uL Baso # (Auto) (0-0.2) K/uL VBG pH 7.44 H (7.36-7.41) VBG pCO2 43 (38-50) mmHg VBG pO2 53 mmHg VBG HCO3 29 mmol/L VBG O2 Saturation 86.7 % VBG Base Excess 3.9 mEq/L Barometric Pressure 726.0 mm/Hg Sodium (136-145) mmol/L Potassium (3.5-5.1) mmol/L Chloride (98-107) mmol/L Carbon Dioxide (21-32) mmol/L Anion Gap (3-11) BUN (7-18) mg/dl Creatinine (0.6-1.2) mg/dl Est Cr Clr Drug Dosing ml/min Est GFR ( Amer) Est GFR (Non-Af Amer) BUN/Creatinine Ratio (10-20) Glucose (70-99) mg/dl Lactate (0.4-2.0) mmol/L Calcium (8.5-10.1) mg/dl Magnesium (1.8-2.4) mg/dl Total Bilirubin (0.2-1) mg/dl AST (15-37) U/L ALT (12-78) U/L Alkaline Phosphatase (45-117) U/L Troponin I (0-0.045) ng/ml Total Protein (6.4-8.2) gm/dl Albumin (3.4-5.0) gm/dl Globulin (2.5-4.0) gm/dl Albumin/Globulin Ratio (0.9-2) Procalcitonin < 0.05 (0-0.5) ng/ml Urine Color Urine Appearance (Clear) Urine pH (4.5-7.5) Ur Specific [place] (1.000-1.030) Urine Protein (Negative) Urine Glucose (UA) (Negative) Urine Ketones (Negative) Urine Blood (Negative) Urine Nitrite (Negative) Urine Bilirubin (Negative) Urine Urobilinogen (Negative) Ur Leukocyte Esterase (Negative) Urine WBC (Auto) (0-5) /hpf Urine RBC (Auto) (0-4) /hpf U Hyaline Cast (Auto) (0-5) /lpf U Epithel Cells (Auto) (0-5) /lpf Urine Bacteria (Auto) (Negative) Lyme Disease IgG Ab Negative (Negative) Lyme Disease IgM Ab Negative (Negative) Influenza Type A Ag Neg for Influ A (Neg) Influenza Type B Ag Pos for Influ B A* (Neg) 06/14/18 06/14/18 Range/Units 21:00 23:06 WBC (4.8-10.8) K/uL RBC (4.2-5.4) M/uL Hgb (12.0-16.0) g/dL Hct (37-47) % MCV (80-100) fL MCH (25-34) pg MCHC (32-36) g/dL RDW Std Deviation (36.4-46.3) fL RDW Coeff of Stella (11.5-14.5) % Plt Count (130-400) K/uL MPV (7.4-10.4) fL Immature Gran % (Auto) % Neut % (Auto) % Lymph % (Auto) % [place] % (Auto) % Eos % (Auto) % Baso % (Auto) % Immature Gran # (Auto) (0.00-0.02) K/uL Neut # (Auto) (1.4-6.5) K/uL Lymph # (Auto) (1.2-3.4) K/uL [place] # (Auto) (0.11-0.59) K/uL Eos # (Auto) (0-0.5) K/uL Baso # (Auto) (0-0.2) K/uL VBG pH (7.36-7.41) VBG pCO2 (38-50) mmHg VBG pO2 mmHg VBG HCO3 mmol/L VBG O2 Saturation % VBG Base Excess mEq/L Barometric Pressure mm/Hg Sodium (136-145) mmol/L Potassium (3.5-5.1) mmol/L Chloride (98-107) mmol/L Carbon Dioxide (21-32) mmol/L Anion Gap (3-11) BUN (7-18) mg/dl Creatinine (0.6-1.2) mg/dl Est Cr Clr Drug Dosing ml/min Est GFR ( Amer) Est GFR (Non-Af Amer) BUN/Creatinine Ratio (10-20) Glucose (70-99) mg/dl Lactate (0.4-2.0) mmol/L Calcium (8.5-10.1) mg/dl Magnesium (1.8-2.4) mg/dl Total Bilirubin (0.2-1) mg/dl AST (15-37) U/L ALT (12-78) U/L Alkaline Phosphatase (45-117) U/L Troponin I 0.067 H* (0-0.045) ng/ml Total Protein (6.4-8.2) gm/dl Albumin (3.4-5.0) gm/dl Globulin (2.5-4.0) gm/dl Albumin/Globulin Ratio (0.9-2) Procalcitonin (0-0.5) ng/ml Urine Color Dark Yellow Urine Appearance Cloudy H (Clear) Urine pH 5.5 (4.5-7.5) Ur Specific [place] 1.031 H (1.000-1.030) Urine Protein 2+ H (Negative) Urine Glucose (UA) Negative (Negative) Urine Ketones 1+ H (Negative) Urine Blood 1+ H (Negative) Urine Nitrite Negative (Negative) Urine Bilirubin Negative (Negative) Urine Urobilinogen Negative (Negative) Ur Leukocyte Esterase Negative (Negative) Urine WBC (Auto) 1-5 (0-5) /hpf Urine RBC (Auto) 5-10 H (0-4) /hpf U Hyaline Cast (Auto) 10-30 H (0-5) /lpf U Epithel Cells (Auto) >30 H (0-5) /lpf Urine Bacteria (Auto) Negative (Negative) Lyme Disease IgG Ab (Negative) Lyme Disease IgM Ab (Negative) Influenza Type A Ag (Neg) Influenza Type B Ag (Neg) Imaging Data Radiologist's Impression: XR chest 2V routine CLINICAL HISTORY: Fever. Cough. COMPARISON STUDY: 08/26/2017 FINDINGS: The heart is normal in size. There is slight interstitial thickening. There are more focal right lower lung zone airspace opacities, likely localized to the right middle lobe of the lateral view. The findings are consistent with a pneumonia. There is also a nodular airspace opacity within the left lower lobe. This is also likely infectious/inflammatory. Films subsequent to treatment are recommended in follow-up.[ IMPRESSION: 1. Bilateral pulmonary airspace opacities right greater than left, likely second titus to a multifocal pneumonia. Clinical correlation and films subsequent to treatment are recommended in follow-up ECG Data Additional Comments: Normal sinus rhythm @84 bpm Normal ECG When compared with ECG of 26-AUG-2017 13:12, Questionable change in QRS axis T wave inversion now evident in Inferior leads MDM Narrative Physical exam and history were performed. Nursing notes, EMR, and Medication List were personally reviewed. Patient appears to be quite ill on presentation to the department. I did identify the patient's vital signs in triage as she is hypoxic on room air at 88%. I did assist triage and escorting the patient to her room via wheelchair. IV access was established and labs were obtained. The patient was placed on the environmental monitoring specialist. She appears quite ill and is concerning with her presentation. The case was discussed with my attending physician, Dr. Dong, who also independently evaluated the patient. The patient was given IV vancomycin and IV cefepime. She was also given a DuoNeb treatment. Chest x- ray was performed. She was given IV Tylenol and IV fluids. The patient's blood work is as above and was reviewed. She does not have a significantly elevated white blood cell count or gross anemia. Potassium is low at 2.9 and this was repleted through her IV. Lactic acid is 1.1 and normal. Transaminases are not diagnostic. Urine is without obvious infection. The family did report a possible tick bite exposure and Lyme was negative. The patient has several abnormal findings otherwise. Her influenza B is positive. Additionally her chest x-ray was reviewed by myself and radiology as showing a positive pneumonia. Lastly she does have an elevated troponin of 0.056, which is atypical for her, and certainly could be a cardiac demand related finding. She was given aspirin, and repeat EKG does not show acute ST elevation. Clinically the patient felt much better after intervention here in the department. She was able to speak clearly and add additional history. Her vital signs did improve and she did appear much more comfortable. Overall the patient does not seem well for discharge home. I discussed the case with the on-call [facility] hospitalist, who agreed to evaluate the patient here in the department. Please see their dictation for further patient course, plan, and disposition. The chart was completed utilizing [employer] Speech Voice Recognition Software. Grammatical errors, random word insertions, pronoun errors, and incomplete sentences are an occasional consequence of this system due to software limitations, ambient noise, and hardware issues. Any formal questions or concerns about the content, text, or information contained within the body of this dictation should be directly addressed to the provider for clarification. . Attending Attestation: I Petar Dong MD independently saw and evaluated this patient and agree with history and physical is otherwise documented by the physician blood donor unit assistant. See their note for full details. Impression & Plan Hypoxia, Influenza B, Pneumonia, Elevated troponin Discharge Plan Visit Data *Final* Discharge Date/Time: 06/15/18 00:10 Chief Complaint: Illness Stated Complaint: SOB, COUGH, HEADACHE, FATIGUE ED Provider: Petar Dong ED Midlevel Provider: Kvng [place] Discharge Problem: Hypoxia, Influenza B, Pneumonia, Elevated troponin Discharge Instructions Interventions: ED Discharge Assessment Last Done: 06/15/18 00:10 Discharge Problem: Pneumonia Qualifiers: Pneumonia type: due to unspecified organism Laterality: bilateral Lung location: unspecified part of lung Qualified Code(s): J18.9 - Pneumonia, unspecified organism
[2018-06-15] MEDS ORDERED: TRAMADOL HCL 50 MG TABLET PO PRN (02:19)
[2018-06-15] MEDS ORDERED: XOPENEX/ATROVENT 1.25mg/0.5MG NEB COMBO NEB SCH (02:19)
[2018-06-15] MEDS ORDERED: PROMETHAZINE HCL 12.5 MG in SODIUM CHLORIDE 0.9% 50 ML IV PRN (02:19)
[2018-06-15] MEDS ORDERED: DOXYCYCLINE HYCLATE 100 MG in DEXTROSE 5% 100 ML IV STA (02:19)
[2018-06-15] MEDS ORDERED: ACETAMINOPHEN 325 MG TAB PO PRN (02:19)
[2018-06-15] MEDS ORDERED: FLUTICASONE PROPIONATE NA SPR 16 GM BTL PRN (02:19)
[2018-06-15] MEDS ORDERED: NSS + 20MEQ KCL 20 MEQ/1,000 ML BAG IV STA (02:30)
[2018-06-15] MEDS: LEVALBUTEROL 1.25MG/0.5ML NEB INH SCH ×4 (02:55→19:58)
[2018-06-15] MEDS ORDERED: PIPERACILLIN/TAZOBACTAM 4.5 GM in DEXTROSE 5% 100 ML IV ONE (03:00)
[2018-06-15] MEDS: LORazepam 0.5 MG TAB PO PRN ×2 (05:07→20:13)
[2018-06-15] MEDS: IPRATROPIUM BROMIDE NEB SOLN 0.02% 2.5 ML VIAL INH SCH ×3 (07:13→19:58)
[2018-06-15] MEDS: PIPERACILLIN/TAZOBACTAM 4.5 GM in DEXTROSE 5% 100 ML IV SCH ×3 (08:43→23:49)
[2018-06-15] MEDS: AMLODIPINE BESYLATE 5 MG TAB PO SCH (08:44)
[2018-06-15] MEDS: FOLIC ACID 1 MG TAB PO SCH (08:44)
[2018-06-15] MEDS: OSELTAMIVIR PHOSPHATE 75 MG CAP PO SCH ×2 (08:45→20:20)
[2018-06-15] MEDS: sulfaSALAzine 500 MG TABLET PO SCH ×2 (08:45→20:19)
[2018-06-15] MEDS: ENOXAPARIN INJ 40 MG/0.4 ML SYR SQ SCH (08:45)
[2018-06-15] MEDS ORDERED: PIPERACILL/TAZOBAC CONSULT ACTIVE PRN (09:00)
[2018-06-15] MEDS ORDERED: predniSONE 20 MG TAB PO SCH (09:00)
[2018-06-15] MEDS ORDERED: HYDROCODONE/HOMATROPINE SYRUP 5MG/1.5MG 5ML UDP PO PRN (11:05)
[2018-06-15] MEDS ORDERED: ACETAMINOPHEN 500 MG TAB PO PRN (11:05)
--- NOTE | 2018-06-15 11:49 | Hospitalist Progress Note ---
Date of Service June 15, 2018 Assessment & Plan (1) Acute hypoxemic respiratory failure: Secondary to COPD exacerbation secondary to community-acquired pneumonia (influenza)/possible aspiration Sepsis (ruled out) in an immunocompromised patient History rheumatoid arthritis on immunosuppressive regimen Has been on doxycycline and Zosyn nebulized bronchodilator and oral prednisone, Appreciate pulmonary input and recommendation Hycodan added for cough Hypertension, elevated secondary to illness Blood pressure seems to be on the upper side Continue amlodipine for now Troponin elevation secondary to illness Serial troponin did not show any significant increase Ongoing tobacco abuse Advised to quit smoking Nicotine patch Hyperglycemia, likely steroid-induced; prediabetes (hemoglobin A1c of 6.1 last January 2017) Hemoglobin [id number] Hypokalemia secondary to emesis, will supplement and monitor DVT prophylaxis. Lovenox subcu Full code Subjective 06/15 The patient was seen and examined by me in medical Medical history significant for COPD, rheumatoid arthritis on immunosuppression, hypertension, ongoing tobacco abuse, arthritis. She has been complaining of cough with yellowish phlegm, headache and shortness of breath She has not been feeling any better since admission Review of Systems Review of Systems: All systems reviewed and unremarkable except as noted below Constitutional: + chills, + body aches and + fatigue Respiratory: + cough, + dyspnea, + dyspnea on exertion, + sputum production and + wheezing; no hemoptysis Physical Exam Physical Exam: Moderate discomfort at rest of breath Constitutional: + ill appearing Eyes: PERRL, conjunctivae normal, anicteric sclerae ENMT: external ear and nose normal, oropharynx normal Neck: trachea midline, no thyromegaly Respiratory: + respiratory distress, + uses accessory muscles and + cough Auscultation: + diminished lung sounds, + crackles (Bibasilar crackles) and + wheezes Cardiovascular: Rate/Rhythm: regular rate and regular rhythm Heart Sounds: normal S1 and normal S2 Gastrointestinal (Abdomen): Inspection/Auscultation: abdomen normal to inspection and normal bowel sounds Percussion/Palpation: abdomen soft; abdomen nontender Neurologic: Alert, awake and oriented x3. Generally weak Results & Data Vital Signs (Past 12 Hours) Vital Signs Temp Pulse Pulse Resp BP BP BP 06/15/18 11:26 37.6 C H 83 18 165/90 H 06/15/18 08:00 80 06/15/18 07:42 37.0 C 83 18 145/79 H 06/15/18 07:15 82 18 06/15/18 04:00 37.1 C 86 20 127/71 06/15/18 02:57 87 22 06/15/18 02:30 89 06/15/18 02:26 36.7 C 88 24 172/80 H 06/15/18 00:10 61 16 116/61 06/15/18 00:00 66 24 104/56 L 06/14/18 23:50 68 24 Pulse Ox 06/15/18 11:26 92 06/15/18 08:00 06/15/18 07:42 93 06/15/18 07:15 93 06/15/18 04:00 96 06/15/18 02:57 92 06/15/18 02:30 06/15/18 02:26 92 06/15/18 00:10 94 06/15/18 00:00 93 06/14/18 23:50 92 Laboratory Results Short CBC 06/14/18 Range/Units 18:47 WBC 8.77 (4.8-10.8) K/uL Hgb 14.2 (12.0-16.0) g/dL Hct 41.6 (37-47) % Plt Count 160 (130-400) K/uL BMP 06/14/18 18:47 Sodium 134 L Potassium 2.9 L Chloride 100 Carbon Dioxide 28 BUN 19 H Creatinine 0.89 Glucose 116 H Calcium 8.4 L Cardiac Enzymes 06/14/18 06/14/18 Range/Units 18:47 23:06 Troponin I 0.056 H* 0.067 H* (0-0.045) ng/ml Liver Function 06/14/18 Range/Units 18:47 Total Bilirubin 0.6 (0.2-1) mg/dl AST 20 (15-37) U/L ALT 17 (12-78) U/L Alkaline Phosphatase 84 (45-117) U/L Albumin 3.1 L (3.4-5.0) gm/dl Urine 06/14/18 Range/Units 21:00 Urine Color Dark Yellow Urine Appearance Cloudy H (Clear) Urine pH 5.5 (4.5-7.5) Ur Specific [place] 1.031 H (1.000-1.030) Urine Protein 2+ H (Negative) Urine Glucose (UA) Negative (Negative) Medications Administered Current Inpatient Medications Acetaminophen (Tylenol) 1,000 mg PO Q6H PRN PRN Reason: Headache or Pain Stop: 07/15/18 11:04 Amlodipine Besylate (Norvasc) 2.5 mg PO DAILY [facility] Stop: 07/15/18 08:59 Last Admin: 06/15/18 08:44 Dose: 2.5 mg Documented by: Doxycycline Hyclate (Vibramycin) 100 mg PO BID [facility] Stop: 06/22/18 20:59 Enoxaparin Sodium (Lovenox) 40 mg SQ QAM KEENAN Stop: 07/15/18 08:59 Last Admin: 06/15/18 08:45 Dose: 40 mg Documented by: Fluticasone Propionate (Flonase) 1 sprays NA Q12 PRN PRN Reason: SINUS CONGESTION Stop: 07/15/18 02:18 Folic Acid (Folvite) 1 mg PO DAILY [facility] Stop: 07/15/18 08:59 Last Admin: 06/15/18 08:44 Dose: 1 mg Documented by: Hydrocodone Bit/Homatropine Methylb (Hycodan) 5 ml PO Q6H PRN PRN Reason: Cough Stop: 06/29/18 11:04 Potassium Chloride/Sodium Chloride (Normal Saline W/20 Meq Kcl) 20 meq in 1,000 mls @ 60 mls/hr IV .[id number] STA Stop: 06/15/18 19:09 Last Admin: 06/15/18 03:01 Dose: 60 mls/hr Documented by: Promethazine HCl 12.5 mg/ (Sodium Chloride) 50.5 mls @ 202 mls/hr IV Q6H PRN PRN Reason: Nausea And Vomiting Stop: 07/15/18 02:18 Piperacillin Sod/Tazobactam (Sod 4.5 gm/ Dextrose) 120 mls @ 30 mls/hr IV Q8H [facility]; Protocol Stop: 06/22/18 07:59 Last Admin: 06/15/18 08:43 Dose: 30 mls/hr Documented by: Ipratropium [place] (Atrovent 0.02% 0.5mg/2.5ml) 0.5 mg INH Q6R [facility] Stop: 07/15/18 07:59 Last Admin: 06/15/18 07:13 Dose: 0.5 mg Documented by: Levalbuterol HCl (Xopenex 1.25mg/0.5ml Neb) 1.25 mg INH Q6R KEENAN Stop: 07/15/18 02:18 Last Admin: 06/15/18 07:13 Dose: 1.25 mg Documented by: Lorazepam (Ativan) 0.25 mg PO Q8 PRN PRN Reason: Anxiety Stop: 07/15/18 02:18 Last Admin: 06/15/18 05:07 Dose: 0.25 mg Documented by: Miscellaneous Information (Consult) 1 ea N/A DAILY PRN PRN Reason: Consult Stop: 07/15/18 08:59 Oseltamivir Phosphate (Tamiflu) 75 mg PO BID KEENAN Stop: 06/20/18 08:59 Last Admin: 06/15/18 08:45 Dose: 75 mg Documented by: Prednisone (Prednisone) 20 mg PO DAILY KEENAN Stop: 07/15/18 08:59 Last Admin: 06/15/18 08:44 Dose: 20 mg Documented by: Simvastatin (Zocor) 10 mg PO HS KEENAN Stop: 07/15/18 20:59 Sulfadiazine (Azulfidine) 500 mg PO BID KEENAN Stop: 07/15/18 08:59 Last Admin: 06/15/18 08:45 Dose: 500 mg Documented by: Tramadol HCl (Ultram) 25 - 50 mg PO Q4H PRN PRN Reason: Pain Stop: 07/15/18 02:18
[2018-06-15 12:23] LABS: Albumin Level 2.8 gm/dl (3.4-5.0); BUN Creatinine Ratio 22.2 (10-20); Calcium 8.3 mg/dl (8.5-10.1); Creatinine Clr Calc Pharmacy 90.7 ml/min; Est GFR (African American) 98.3; Est GFR (Non-African American) 84.8; Potassium 3.6 mmol/L (3.5-5.1)
[2018-06-15 12:29] LABS: Albumin Globulin Ratio 0.7 (0.9-2); Bilirubin,Total 0.4 mg/dl (0.2-1); Globulin 4.2 gm/dl (2.5-4.0); Troponin I 0.067 ng/ml (0-0.045)
[2018-06-15 12:42] LABS: Estimated Average Glucose 137 mg/dl; Hemoglobin A1C 6.4 % (4.5-5.6)
[2018-06-15] MEDS: SIMVASTATIN 10 MG TAB PO SCH (20:19)
[2018-06-15] MEDS ORDERED: DOXYCYCLINE HYCLATE 100 MG CAP PO SCH (21:00)
--- NOTE | 2018-06-15 21:40 | Consultation Report ---
DATE OF CONSULTATION: 06/15/2018 PULMONARY CONSULTATION TIME: 9:00 a.m. REPORT OF CONSULTATION: The patient was seen in room 279, bed 1. She is a 63-year-old female who was in her usual state of health until 06/11. She developed a cough, which was like a tickle. A day or two later, she developed some chills and yesterday had sweats. She had increasing shortness of breath. She had malaise and a moderate headache. She came to the Emergency Room yesterday with these complaints. Her temperature in the ER was 39.1. Respiratory rate was up to 34. Oxygen saturation on room air was 88%. Blood pressure in the ER was elevated at 216/109. She underwent a workup that included a flu test. This shows positive for influenza B. In addition, she had a chest x-ray done that shows evidence of an infiltrate in the right mid to lower lung field and a smaller infiltrate in the left mid to lower lung field. These would be compatible with pneumonia. She has had increased sputum production, which at times is brownish. Sometimes, it is clear. The brown sputum would suggest more of a bacterial infection than simply influenza. She states that she has custody of 4-year-old grandchildren x2 and they recently had fever and cough. She assumed that she was just getting their cold. The patient has chronic rheumatoid arthritis. She is on chronic prednisone therapy and on Xeljanz. Thus, she is somewhat immunosuppressed. Today, she does not feel significantly better. She is just restless and has severe malaise. The patient denies a history of COPD, yet she is taking Dulera on a regular basis since last year. In May of last year, she was hospitalized with influenza B as well. She has been a long-term smoker of 1 pack per day for 45 years. She would deny that she is significantly short of breath when she is well, but she acknowledges she feels better taking the inhaler. It is very suspicious that she truly has COPD. She also has ProAir for rescue at home that she uses occasionally. PAST MEDICAL HISTORY: 1. Rheumatoid arthritis since 2000. 2. Hyperlipidemia. 3. Hypertension. 4. Herpes zoster in the relatively recent past affecting the eye. 5. Childbirth x2. PAST SURGICAL HISTORY: 1. Hysterectomy for what she describes as precancer. 2. Five surgeries in the neck area for removal of a lipoma, but it kept coming back. 3. Right total knee replacement. SOCIAL HISTORY: Tobacco 1 pack per day for 45 years. ETOH -- none. FAMILY HISTORY: Mother living at age 87, history of atrial fibrillation, but otherwise well. Father at age 87, dementia. Sister living, has rheumatoid arthritis. Brother at age 63, also had rheumatoid arthritis. ALLERGIES: No known allergies. OCCUPATIONAL HISTORY: The patient is not working currently. 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 REVIEW OF SYSTEMS: The patient has a headache as noted. Denies nasal symptoms. Denies heartburn. She did state she thought she was going to throw up earlier today, but it occurred at the time of a coughing spell and she was not truly nauseated. Denies vomiting or diarrhea. She has chronic urinary incontinence. She has diffuse pains secondary to rheumatoid arthritis. Energy level has been extremely low. Review of systems is otherwise negative. Ten systems reviewed. MEDICATIONS AN OUTPATIENT: 1. ProAir p.r.n. 2. Amlodipine 2.5 mg daily. 3. Celebrex 200 mg daily. 4. Fluticasone nasal spray p.r.n. 5. Folic acid 1 mg daily. 6. Lorazepam 0.5 q.8 p.r.n. 7. Mometasone/formoterol 2 puffs q.12. 8. Ondansetron p.r.n. 9. Potassium 20 mEq b.i.d. 10. Prednisone 5 mg daily. 11. Simvastatin 10 mg at bedtime. 12. Sulfasalazine 0.5 b.i.d. 13. Xeljanz 11 mg p.o. daily. 14. Triamterene/HCTZ 1 daily. PHYSICAL EXAMINATION: GENERAL: The patient is a 63-year-old female who looks acutely ill. She is a little sweaty. She is a little restless. She looks fatigued. Weight is 98.1 kg with a BMI of 34.9. HEENT: Pupils were reactive to light. Nares were clear. Mouth exam shows a Mallampati grade 2 pharynx. No erythema or exudate noted. NECK: In the neck area on the left side posteriorly and laterally are scars from prior surgery and a prominent lipoma. She also has a lipoma in the right posterior chest. CHEST: The chest was of normal expansion. HEART: Heart rate 83 per minute. Rhythm is regular. Blood pressure 145/79. Blood pressure has improved compared with when she was admitted. Respiratory rate 20 breaths per minute. Rales are heard bilaterally, greater on the right. Saturation 93% on 3 liters. Temperature 37 degrees. Maximum temperature 39.1 last evening. ABDOMEN: Soft. Bowel sounds were normal. There was no tenderness to palpation, masses, or organomegaly. EXTREMITIES: Showed no cyanosis, clubbing or edema. There is a scar on the right knee from prior surgery. There appears to be degenerative joint disease in the left knee. DIAGNOSTIC STUDIES: Chest x-ray as noted shows bilateral airspace opacities, right greater than left, likely secondary to bilateral pneumonia. White count is 8.77. Hemoglobin 14.2. Platelets 160,000. Differential showed 80.4 neutrophils, 6.2 lymphs, 12.9 monos. Venous blood gas showed pH 7.44, pCO2 of 43, pO2 53. Electrolytes show sodium 134, potassium 2.9, chloride 100, bicarbonate 28. BUN 19 with creatinine 0.89. Blood sugar 116. Liver functions are normal. Troponins were elevated as high as 0.067. Albumin 3.1 and globulin 4.8. Procalcitonin less than 0.05. Urinalysis shows 2+ protein, 1+ ketones, 1+ blood, and 5-10 RBCs per high power field. Urine bacteria was negative. Blood cultures are pending. IMPRESSION: 1. Bilateral pneumonia. 2. Influenza B. 3. Chronic obstructive pulmonary disease. 4. Nicotine addiction. COMMENTS AND RECOMMENDATIONS: The patient is still feeling poorly. She is on Zosyn and doxycycline. She is also on Tamiflu, although because her symptoms started 5 days ago, it is unlikely the Tamiflu will be substantially helpful. She is on neb treatments with levalbuterol and ipratropium. I agree with all the above. The prednisone was increased to 20 mg. I assume this was because she is acutely ill and to prevent adrenal insufficiency. If it has not been obtained, I would try and obtain a sputum Gram stain and culture as she has been coughing brown sputum, which would be more likely bacterial rather than viral. She does require potassium supplementation. Thank you for asking me to assist in her care.
[2018-06-16] MEDS: IPRATROPIUM BROMIDE NEB SOLN 0.02% 2.5 ML VIAL INH SCH ×4 (01:47→19:26)
[2018-06-16] MEDS: LEVALBUTEROL 1.25MG/0.5ML NEB INH SCH ×4 (01:47→19:26)
[2018-06-16] MEDS ORDERED: DEXTROSE 50% 50 ML SYRINGE IV PRN (02:24)
[2018-06-16] MEDS ORDERED: GLUCAGON FOR INJ 1 MG VIAL SQ PRN (02:24)
[2018-06-16] MEDS ORDERED: GLUCOSE 40% GEL 15 GM TUBE PO PRN (02:24)
[2018-06-16] MEDS ORDERED: CARBOHYDRATES FOR HYPOGLYCEMIA PO PRN (02:24)
[2018-06-16] MEDS ORDERED: GLUCOSE 10 TABS/TUBE PO PRN (02:24)
[2018-06-16] MEDS ORDERED: INSULIN GLARGINE SOLOSTAR 100 UNITS/ML 3 ML PEN SC ONE (02:25)
[2018-06-16] MEDS ORDERED: OPTIRAY 320 125ml IV PRN (03:08)
[2018-06-16] MEDS: INSULIN ASPART 100 UNITS/ML 3 ML PEN SC SCH ×5 (03:13→21:21)
--- NOTE | 2018-06-16 04:35 | Hospitalist Progress Note ---
Date of Service June 16, 2018 Subjective Patient sputum noted to change to orange-colored, ? Blood-streaked. Increasing O2 requirement as per RN. Patient denies chest pain. Overall feels better since confinement. CT chest angiogram initial read multifocal pneumonia AP Worsening hypoxemic respiratory failure Hemoptysis Change doxycycline to IV vancomycin Continue Zosyn Change daily prednisone to Solu-Medrol IV for now Trend H&H SCDs in place of pharmacologic anticoagulation given hemoptysis with hemoglobin drop CT Results & Data Vital Signs (Past 12 Hours) Vital Signs Temp Pulse Pulse Resp BP BP Pulse Ox 06/16/18 03:23 93 06/16/18 03:17 37.1 C 85 18 148/72 H 06/16/18 01:49 81 17 93 06/16/18 00:16 37.5 C 91 H 16 148/73 H 91 06/16/18 00:00 83 06/15/18 20:11 37 C 91 H 20 161/79 H 91 06/15/18 19:58 73 18 93
[2018-06-16] MEDS ORDERED: XOPENEX/ATROVENT 1.25mg/0.5MG NEB COMBO NEB STA (06:25)
[2018-06-16] MEDS ORDERED: LEVALBUTEROL 1.25MG/0.5ML NEB INH STA (06:28)
[2018-06-16] MEDS ORDERED: IPRATROPIUM BROMIDE NEB SOLN 0.02% 2.5 ML VIAL INH STA (06:28)
[2018-06-16] MEDS ORDERED: methylPREDNISolone 40 MG in SYRINGE 0 ML IV SCH (06:30)
[2018-06-16] MEDS ORDERED: VANCOMYCIN HCL 2,500 MG in SODIUM CHLORIDE 0.9% 500 ML IV SCH (06:30)
[2018-06-16] MEDS ORDERED: VANCOMYCIN CONSULT ACTIVE PRN (06:32)
[2018-06-16 06:41] LABS: Basophils # (auto) 0.01 K/uL (0-0.2); Basophils % (auto) 0.1 %; Hematocrit (blood only) 37.9 % (37-47); Hemoglobin 12.7 g/dL (12.0-16.0); Immature Granulocytes # (auto) 0.03 K/uL (0.00-0.02); Immature Granulocytes % (auto) 0.3 %; Lymphocytes # (auto) 0.98 K/uL (1.2-3.4); Lymphocytes % (auto) 10.4 %; Mean Corpuscular Hgb Conc 33.5 g/dL (32-36); Mean Corpuscular Volume 82.2 fL (80-100); Mean Platelet Volume 10.1 fL (7.4-10.4); Monocytes # (auto) 1.14 K/uL (0.11-0.59); Monocytes % (auto) 12.1 %; Neutrophils # (auto) 7.24 K/uL (1.4-6.5); Neutrophils % (auto) 77.1 %; Platelet Count 135 K/uL (130-400); RDW Coefficient of Variation 13.8 % (11.5-14.5); RDW Standard Deviation 41.5 fL (36.4-46.3); Red Blood Count 4.61 M/uL (4.2-5.4)
[2018-06-16 06:57] LABS: HCO3 ABG 29 mmol/L (19-24); Oxygen Saturation ABG 95.4 % (90-95); PCO2 ABG 44 mmHg (35-46); PO2 ABG 75 mm/Hg (80-95); pH ABG 7.44 (7.35-7.45)
[2018-06-16 06:58] LABS: Allen Test Pos (Pos)
[2018-06-16 07:15] LABS: BUN Creatinine Ratio 18.6 (10-20); Calcium 8.2 mg/dl (8.5-10.1); Creatinine Clr Calc Pharmacy 97.2 ml/min; Est GFR (African American) 106.9; Est GFR (Non-African American) 92.2; Magnesium 2.1 mg/dl (1.8-2.4); Potassium 3.3 mmol/L (3.5-5.1)
[2018-06-16] MEDS: sulfaSALAzine 500 MG TABLET PO SCH ×2 (07:44→20:37)
[2018-06-16] MEDS: AMLODIPINE BESYLATE 5 MG TAB PO SCH (07:44)
[2018-06-16] MEDS: OSELTAMIVIR PHOSPHATE 75 MG CAP PO SCH ×2 (07:44→20:36)
[2018-06-16] MEDS: FOLIC ACID 1 MG TAB PO SCH (07:44)
[2018-06-16] MEDS: ENOXAPARIN INJ 40 MG/0.4 ML SYR SQ SCH (07:44)
--- NOTE | 2018-06-16 07:45 | CT Scan Report ---
CT ANGIOGRAM OF THE CHEST CLINICAL HISTORY: hemoptysis PNEUMONIA COMPARISON STUDY: Chest x-ray dated 06/14/2018 TECHNIQUE: Following the IV administration of 120 mL of Optiray-320, CT angiogram of the thorax was p erformed from the thoracic inlet to the lung bases utilizing the pulmonary embolus protocol. Images a re reviewed in the axial, sagittal, and coronal planes. IV contrast was administered without complica tion. MIP imaging was performed. A dose lowering technique was utilized adhering to the principles o f ALARA. CT DOSE: 471.66 mGy.cm FINDINGS: There are minimally enlarged mediastinal and hilar lymph nodes, likely reactive. Axillary lymph nodes are also at the upper limits of normal in size. There is a multinodular thyroid gland. There was no evidence of thoracic aortic dilatation. The patient was unable to cooperate with breath holding which limits the study for evaluation of subs egmental pulmonary emboli. No central emboli are visualized. No pleural effusions are visualized. There are multifocal airspace opacities, consistent with a multifocal bilateral pneumonia. IMPRESSION: 1. Multifocal airspace opacities consistent with a bilateral multifocal pneumonia 2. Mildly prominent mediastinal and hilar lymph nodes likely reactive 3. No evidence of pulmonary embolism however the examination is significantly limited due to respirat ory version artifact Electronically signed by: Romulo Dalton M.D. 06/16/2018 7:44 AM
[2018-06-16] MEDS ORDERED: POTASSIUM CHLORIDE 20 MEQ TABCR PO STA (07:48)
[2018-06-16] MEDS: LORazepam 0.5 MG TAB PO PRN (07:51)
[2018-06-16] MEDS ORDERED: NSS + 20MEQ KCL 20 MEQ/1,000 ML BAG IV ONE (08:00)
[2018-06-16] MEDS: PIPERACILLIN/TAZOBACTAM 4.5 GM in DEXTROSE 5% 100 ML IV SCH ×3 (09:16→23:14)
[2018-06-16 11:59] LABS: Hematocrit (blood only) 38.4 % (37-47); Hemoglobin 12.9 g/dL (12.0-16.0)
--- NOTE | 2018-06-16 12:41 | Progress Note ---
DATE: 06/16/2018 PULMONARY PROGRESS NOTE TIME: 11:20 a.m. SUBJECTIVE: The patient feels much better. She notices a definite improvement. She is still short of breath. She is coughing mucus. There has been brown mucus and some blood mixed in. During the nighttime, her saturations were down somewhat and she has coughed up some blood. Because of that, she was ordered a CT angio of the chest. This showed no evidence of pulmonary embolic disease. Her fevers have improved. Appetite is good. OBJECTIVE: GENERAL: The patient looks much more comfortable today than yesterday. Her strength seems better. VITAL SIGNS: Current temperature 36.9. Maximum temperature overnight 37.5. HEART: Heart rate 78 per minute. Rhythm regular. Blood pressure 130/78. LUNGS: Lung contreras revealed scattered rales and rhonchi bilaterally. Respiratory rate 20. Saturation 94% on 3 liter nasal cannula. EXTREMITIES: Showed no cyanosis, clubbing, or edema. LABORATORY DATA: White count today 9.4. Hemoglobin 12.7. Platelets down to 135,000. Yesterday, platelets were 160,000. Blood sugar this morning 143. Electrolytes show sodium 133, potassium 3.3, chloride 100, bicarbonate 29. BUN 13 with creatinine 0.7. Blood gas during the nighttime showed pH 7.44, pCO2 of 44, pO2 75 done on [address] of the chest showed multifocal airspace opacities consistent with mild focal pneumonia. All lobes were involved. Mildly prominent mediastinal and hilar lymph nodes noted. Blood cultures thus far are negative. IMPRESSION: 1. Bilateral pneumonia. 2. Influenza B. 3. Chronic obstructive pulmonary disease. 4. Hemoptysis, likely secondary to infection. 5. Personal history of nicotine addiction. COMMENTS AND RECOMMENDATIONS: The patient clinically is much better. I would continue with the Zosyn and I believe she should have treatment for atypicals as well. I am not sure why the doxycycline was stopped. It does not appear that she has any atypical coverage at present. I do suggest atypical coverage. Would continue with her neb treatments.
--- NOTE | 2018-06-16 17:00 | Hospitalist Progress Note ---
Date of Service delayed entry date of service noted below June 16, 2018 Assessment & Plan (1) Acute hypoxemic respiratory failure: (1) Acute hypoxemic respiratory failure: Secondary to COPD exacerbation secondary to community-acquired pneumonia (influenza)/possible aspiration Sepsis (ruled out) in an immunocompromised patient History rheumatoid arthritis on immunosuppressive regimen -- improving -- blood cultures negative sputum culture negative -- continue Zosyn, Doxy, Vanco continue Nebs d/c Solumedrol -- monitor appreciate Dr. Ibarra's recommendations -- wean off o2 Influenza B -- continue Tamiflu Hypertension Continue amlodipine for now Troponin elevation secondary to illness Serial troponin did not show any significant increase Ongoing tobacco abuse Advised to quit smoking Nicotine patch Hyperglycemia, likely steroid-induced; prediabetes (hemoglobin A1c of 6.1 last January 2017) a1c 6.4 on ISS DVT Prophylaxis Lovenox Disposition anticipate d/c home when medically stable will need 2 step eval Subjective ff up for PNA seen resting in bed comfortable, not in distress states she feels improved, still has some mild dyspnea, productive cough no blood denies chest pain no other symptoms Review of Systems Review of Systems: All systems reviewed & are unremarkable except as noted in HPI & below Physical Exam Physical Exam: General- oriented x 3, not in distress, speaks in sentences with mild effort when speaking Head- atraumatic Eyes- PERRL, EOMI, anicteric ENT- oropharynx clear Neck- supple, no JVD, no adenopathy, no thyromegaly; carotids +2/2, no bruits appreciated Lungs-mild rhonchi lower bases, no wheezing Heart- normal rate, regular rhythm; no murmur, no gallop, no rub appreciated Abdomen- normal bowel sounds, nondistended, soft, nontender, no masses or hepatosplenomegaly Extremities-trace pretibial edema, no calf tenderness; peripheral pulses intact Neuro- alert, oriented x 3; CN 2-12 grossly intact; motor 5/5 bilaterally;sensation 100% on all extremities; no other gross focal neurologic deficits Skin- warm & dry Results & Data Vital Signs (Past 12 Hours) Vital Signs Temp Pulse Pulse Resp BP Pulse Ox 06/16/18 13:50 67 18 96 06/16/18 10:32 78 06/16/18 07:59 94 06/16/18 07:40 36.9 C 82 20 130/78 90 06/16/18 07:20 78 18 94
[2018-06-16 18:18] LABS: Hematocrit (blood only) 37.6 % (37-47); Hemoglobin 12.7 g/dL (12.0-16.0)
[2018-06-16] MEDS: VANCOMYCIN HCL 1,250 MG in SODIUM CHLORIDE 0.9% 250 ML IV SCH (18:28)
[2018-06-16] MEDS: DOXYCYCLINE HYCLATE 100 MG CAP PO SCH (20:35)
[2018-06-16] MEDS: SIMVASTATIN 10 MG TAB PO SCH (20:37)
[2018-06-17] MEDS: LEVALBUTEROL 1.25MG/0.5ML NEB INH SCH ×4 (01:53→19:37)
[2018-06-17] MEDS: IPRATROPIUM BROMIDE NEB SOLN 0.02% 2.5 ML VIAL INH SCH ×4 (01:53→19:37)
[2018-06-17] MEDS: VANCOMYCIN HCL 1,250 MG in SODIUM CHLORIDE 0.9% 250 ML IV SCH (05:54)
[2018-06-17] MEDS: PIPERACILLIN/TAZOBACTAM 4.5 GM in DEXTROSE 5% 100 ML IV SCH ×2 (08:16→17:55)
[2018-06-17] MEDS: INSULIN ASPART 100 UNITS/ML 3 ML PEN SC SCH ×4 (08:16→20:42)
[2018-06-17] MEDS: sulfaSALAzine 500 MG TABLET PO SCH ×2 (08:24→20:44)
[2018-06-17] MEDS: FOLIC ACID 1 MG TAB PO SCH (08:24)
[2018-06-17] MEDS: AMLODIPINE BESYLATE 5 MG TAB PO SCH (08:25)
[2018-06-17] MEDS: OSELTAMIVIR PHOSPHATE 75 MG CAP PO SCH ×2 (08:27→20:41)
[2018-06-17] MEDS: DOXYCYCLINE HYCLATE 100 MG CAP PO SCH ×2 (08:27→20:40)
[2018-06-17] MEDS: ENOXAPARIN INJ 40 MG/0.4 ML SYR SQ SCH (08:28)
[2018-06-17] MEDS ORDERED: methylPREDNISolone 40 MG in SYRINGE 0 ML IV SCH (09:00)
[2018-06-17] MEDS ORDERED: INSULIN GLARGINE SOLOSTAR 100 UNITS/ML 3 ML PEN SC SCH (09:00)
[2018-06-17 12:46] LABS: BUN Creatinine Ratio 18.8 (10-20); Calcium 8.4 mg/dl (8.5-10.1); Creatinine Clr Calc Pharmacy 88.4 ml/min; Est GFR (African American) 93.8; Est GFR (Non-African American) 80.9; Potassium 3.5 mmol/L (3.5-5.1)
--- NOTE | 2018-06-17 15:38 | Hospitalist Progress Note ---
Date of Service June 17, 2018 Assessment & Plan (1) Acute hypoxemic respiratory failure: (1) Acute hypoxemic respiratory failure: Secondary to COPD exacerbation secondary to community-acquired pneumonia (influenza)/possible aspiration Sepsis (ruled out) in an immunocompromised patient History rheumatoid arthritis on immunosuppressive regimen -- continues to improve -- blood cultures negative sputum culture negative -- continue Zosyn, Doxy continue Nebs d/c Solumedrol -- wean off o2 appreciate Dr. Ibarra's recommendations Influenza B -- continue Tamiflu Hypertension Continue amlodipine Troponin elevation secondary to illness Serial troponin did not show any significant increase Ongoing tobacco abuse Advised to quit smoking Nicotine patch Hyperglycemia, likely steroid-induced; prediabetes (hemoglobin A1c of 6.1 last January 2017) a1c 6.4 on ISS DVT Prophylaxis Lovenox Disposition anticipate d/c home when medically stable will need 2 step eval Subjective ff up PNA seen resting in bed continues to feel improved o2 down to 1-2 L less dyspnea, cough no chest pain, dizziness, nausea no chills denies other symptoms Review of Systems Review of Systems: All systems reviewed & are unremarkable except as noted in HPI & below Physical Exam Physical Exam: General- oriented x 3, not in distress, speaks in sentences with no effort or accessory muscle use Eyes- anicteric Neck- no JVD Lungs- (+) b/l mild rhonchi, no wheezing Heart- normal rate, regular rhythm; no murmurs Abdomen- normal bowel sounds, nondistended, soft, nontender Extremities- trace pretibial edema, no calf tenderness Neuro- alert, oriented x 3; no gross focal neurologic deficits Skin- warm & dry Results & Data Vital Signs (Past 12 Hours) Vital Signs Temp Pulse Pulse Resp BP Pulse Ox 06/17/18 14:08 72 18 94 06/17/18 07:23 61 06/17/18 07:15 64 18 95 06/17/18 03:36 36.7 C 70 16 116/64 96
[2018-06-17] MEDS: SIMVASTATIN 10 MG TAB PO SCH (20:40)
[2018-06-17] MEDS: LORazepam 0.5 MG TAB PO PRN (20:51)
[2018-06-18] MEDS: PIPERACILLIN/TAZOBACTAM 4.5 GM in DEXTROSE 5% 100 ML IV SCH ×3 (00:27→16:51)
[2018-06-18] MEDS: IPRATROPIUM BROMIDE NEB SOLN 0.02% 2.5 ML VIAL INH SCH ×4 (01:49→20:00)
[2018-06-18] MEDS: LEVALBUTEROL 1.25MG/0.5ML NEB INH SCH ×4 (01:49→20:00)
[2018-06-18] MEDS ORDERED: VANCOMYCIN TROUGH ONE (05:30)
[2018-06-18] MEDS: ENOXAPARIN INJ 40 MG/0.4 ML SYR SQ SCH (08:14)
[2018-06-18] MEDS: AMLODIPINE BESYLATE 5 MG TAB PO SCH (08:15)
[2018-06-18] MEDS: FOLIC ACID 1 MG TAB PO SCH (08:16)
[2018-06-18] MEDS: DOXYCYCLINE HYCLATE 100 MG CAP PO SCH ×2 (08:16→21:07)
[2018-06-18] MEDS: OSELTAMIVIR PHOSPHATE 75 MG CAP PO SCH ×2 (08:16→21:06)
[2018-06-18] MEDS: sulfaSALAzine 500 MG TABLET PO SCH ×2 (08:16→21:07)
[2018-06-18] MEDS: INSULIN ASPART 100 UNITS/ML 3 ML PEN SC SCH ×4 (08:53→21:08)
--- NOTE | 2018-06-18 16:35 | Pulmonology Progress Note ---
Date of Service June 18, 2018 Assessment & Plan (1) Pneumonia: Impression: 1. Multilobar pneumonia. 2. Hemoptysis secondary to cough. 3. COPD. 4. History of rheumatoid arthritis, psoriasis, both can affect the lung causing reticular-nodular disease. 5. Influenza B. Plan: 1. Continue with doxycycline and complete total of 10 days. 2. Discontinue Zosyn upon discharge. 3. Continue prednisone. The patient is seeking alternative to her current immunotherapy for rheumatoid arthritis, she has been trialed before on DMARDs. 4. I assured the patient that she will need the treatment for rheumatoid arthritis, there is no way that she can avoid having opportunistic infections with this type of medications. But is necessary to slow down the progress of RA. 5. Continue her current bronchodilators from home including Dulera and albuterol. 6. Avoid smoking. 7. Patient can be discharged home. Thank you, will follow as needed. Laterality: bilateral Lung location: unspecified part of lung Pneumonia type: due to unspecified organism Qualified Code(s): J18.9 - Pneumonia, unspecified organism Subjective Clinically improving, she denies any persistent cough, now she is without any sputum, previously she did have blood-tinged sputum, initially she had a green sputum which has resolved. No fever since admission. Review of Systems Review of Systems: Apart from the above, review of system was unremarkable. Physical Exam Physical Exam: Vital signs are stable, S1-S2 regular rate and rhythm, lungs are distant clear, abdomen is benign, no edema. Neurologically she is intact. No rash no oral lesion. Results & Data Vital Signs (Past 12 Hours) Vital Signs Temp Pulse Pulse Resp BP Pulse Ox 06/18/18 14:00 75 18 90 06/18/18 08:20 36.6 C 68 20 152/91 H 92 06/18/18 07:13 65 16 93 06/18/18 05:13 36.7 C 69 20 152/87 H 91 Laboratory Results Her labs were reviewed from previous. No new labs. Diagnostic Findings CAT scan of the chest was consistent with multilobar pneumonia in addition to infiltrates possibly related to blood ectasia and hemoptysis.
[2018-06-18] MEDS: SIMVASTATIN 10 MG TAB PO SCH (21:07)
[2018-06-19] MEDS: PIPERACILLIN/TAZOBACTAM 4.5 GM in DEXTROSE 5% 100 ML IV SCH ×2 (00:55→08:38)
[2018-06-19] MEDS: IPRATROPIUM BROMIDE NEB SOLN 0.02% 2.5 ML VIAL INH SCH ×2 (01:46→07:23)
[2018-06-19] MEDS: LEVALBUTEROL 1.25MG/0.5ML NEB INH SCH ×2 (01:46→07:23)
[2018-06-19 06:50] LABS: Creatinine Clr Calc Pharmacy 99.4 ml/min; Est GFR (African American) 107.4; Est GFR (Non-African American) 92.6
[2018-06-19] MEDS: DOXYCYCLINE HYCLATE 100 MG CAP PO SCH (07:43)
[2018-06-19] MEDS: AMLODIPINE BESYLATE 5 MG TAB PO SCH (07:44)
[2018-06-19] MEDS: sulfaSALAzine 500 MG TABLET PO SCH (07:44)
[2018-06-19] MEDS: OSELTAMIVIR PHOSPHATE 75 MG CAP PO SCH (07:45)
[2018-06-19] MEDS: FOLIC ACID 1 MG TAB PO SCH (07:45)
[2018-06-19] MEDS: ENOXAPARIN INJ 40 MG/0.4 ML SYR SQ SCH (07:46)
[2018-06-19] MEDS: INSULIN ASPART 100 UNITS/ML 3 ML PEN SC SCH ×2 (08:00→12:43)
[2018-06-19] MEDS ORDERED: predniSONE 20 MG TAB PO ONE (09:00)
--- NOTE | 2018-06-19 09:19 | Hospitalist Progress Note ---
Date of Service delayed entry date of service noted below June 18, 2018 Assessment & Plan (1) Acute hypoxemic respiratory failure: (1) Acute hypoxemic respiratory failure: Secondary to COPD exacerbation secondary to Bilateral Pneumonia, Influenza Infection in the setting of immunocompromised patient History rheumatoid arthritis on Xelganz -- blood cultures negative sputum culture negative -- Ct chest: IMPRESSION: 1. Multifocal airspace opacities consistent with a bilateral multifocal pneumonia 2. Mildly prominent mediastinal and hilar lymph nodes likely reactive 3. No evidence of pulmonary embolism however the examination is significantly limited due to respiratory version artifact -- given IV Zosyn, Doxy Nebs qid Solumedrol transitioned to prednisone -- weaned off o2 Clinical Data Abstractor Dr. Ibarra consulted -- discharge plan: Doxycycline 100mg BID x 7 days Tamiflu 5 more days nebs TID and PRN Prednisone taper from 40 to usual 5mg po daily -- ff up with PCP Sunday 06/25 Pulm 2 weeks Rheum 1 week Influenza B -- continue Tamiflu x 5 more days to complete 5 days therapy -- precautions discussed with patient Hypertension Continue amlodipine Troponin elevation secondary to illness Serial troponin did not show any significant increase Ongoing tobacco abuse Advised to quit smoking Nicotine patch Hyperglycemia, likely steroid-induced; prediabetes (hemoglobin A1c of 6.1 last January 2017) a1c 6.4 on ISS DVT Prophylaxis Lovenox Disposition d/c home ff up with PCP, specialists as noted above Subjective ff up for pneumonia, shortness of breath seen resting in bed, comfortable states she continues to feel improved less cough, no sputum no chest pain ambulated in the hallways with no dyspnea no other symptoms Review of Systems Review of Systems: All systems reviewed & are unremarkable except as noted in HPI & below Physical Exam Physical Exam: General- oriented x 3, not in distress, speaks in sentences with no effort or accessory muscle use Eyes- anicteric Neck- no JVD Lungs- (+) rhonchi b/l no wheezing Heart- normal rate, regular rhythm; no murmurs Abdomen- normal bowel sounds, nondistended, soft, nontender Extremities- no pretibial edema, no calf tenderness Neuro- alert, oriented x 3; no gross focal neurologic deficits Skin- warm & dry Results & Data Vital Signs (Past 12 Hours) Vital Signs Temp Pulse Pulse Resp BP Pulse Ox 06/18/18 14:00 75 18 90 06/18/18 08:20 36.6 C 68 20 152/91 H 92 06/18/18 07:13 65 16 93 06/18/18 05:13 36.7 C 69 20 152/87 H 91
--- NOTE | 2018-06-19 09:23 | Discharge Summary ---
Date of Service June 19, 2018 Admission HPI Per Admitting Provider History obtained from patient and records. Medical history significant for COPD, rheumatoid arthritis on immunosuppression, hypertension, ongoing tobacco abuse, arthritis, uterine cancer status post surgery Recent confinement last year for hypoxemia, influenza. Last few days patient felt sick with malaise symptoms, generalized headache. Dry cough which later was noted to be junky and productive of greenish sputum. Increasing shortness of breath. At the ER, patient had an episode of emesis followed by worsening cough symptoms. Medical History as above Surgical History : Knee surgery, bunion surgery, BTL, TNA, subcutaneous neck tumor removal, gynecologic procedures Family History : Rheumatoid arthritis, diabetes, hypertension Personal/Social history : Half pack daily, no EtOH intake, disabled Admission Exam Per Admitting Provider Physical Exam: GENERAL: Lethargic, minimal respiratory distress, obese SKIN: Normal color, warm HEENT: [place] palpebral conjunctivae, no ptosis, dry buccal mucosa NECK : Supple, no tenderness CHEST : Decreased breath sounds, bilateral rhonchi, no tenderness HEART : RRR, no obvious murmurs ABDOMEN: Some distention, nontender EXTREMITIES : No LE swelling/tenderness, no other conspicuous deformities noted NEUROLOGIC : Lethargic, no facial asymmetry, no other gross focality Principal Diagnosis ACUTE HYPOXIC RESPIRATORY FAILURE, BILATERAL PNEUMONIA, INFLUENZA Discharge Exam Physical Exam: General- oriented x 3, not in distress, speaks in sentences with no effort or accessory muscle use Eyes- anicteric Neck- no JVD Lungs- (+) rhonchi b/l no wheezing Heart- normal rate, regular rhythm; no murmurs Abdomen- normal bowel sounds, nondistended, soft, nontender Extremities- no pretibial edema, no calf tenderness Neuro- alert, oriented x 3; no gross focal neurologic deficits Skin- warm & dry Discharge Data Allergies Allergy/AdvReac Type Severity Reaction Status Date / Time No Known Allergies Allergy Unverified 06/14/18 18:55 Consultations 06/14/18 20:01 ED Decision to Admit Stat 06/15/18 02:19 Consult Pulmonology Routine 06/18/18 15:14 Consult Pulmonology Routine Ordered Studies 06/16/18 00:14 CT angio chest PE protocol Urgent There are minimally enlarged mediastinal and hilar lymph nodes, likely reactive. Axillary lymph nodes are also at the upper limits of normal in size. There is a multinodular thyroid gland. There was no evidence of thoracic aortic dilatation. The patient was unable to cooperate with breath holding which limits the study for evaluation of subsegmental pulmonary emboli. No central emboli are visualized. No pleural effusions are visualized. There are multifocal airspace opacities, consistent with a multifocal bilateral pneumonia. IMPRESSION: 1. Multifocal airspace opacities consistent with a bilateral multifocal pneumonia 2. Mildly prominent mediastinal and hilar lymph nodes likely reactive 3. No evidence of pulmonary embolism however the examination is significantly limited due to respiratory version artifact Hospital Course (1) Acute hypoxemic respiratory failure: (1) Acute hypoxemic respiratory failure: Secondary to COPD exacerbation secondary to Bilateral Pneumonia, Influenza Infection in the setting of immunocompromised patient History rheumatoid arthritis on Xelganz -- blood cultures negative sputum culture negative -- Ct chest: IMPRESSION: 1. Multifocal airspace opacities consistent with a bilateral multifocal pneumonia 2. Mildly prominent mediastinal and hilar lymph nodes likely reactive 3. No evidence of pulmonary embolism however the examination is significantly limited due to respiratory version artifact -- given IV Zosyn, Doxy Nebs qid Solumedrol transitioned to prednisone -- weaned off o2 Tracer Powder Blender Dr. Smith consulted -- discharge plan: Doxycycline 100mg BID x 7 days Tamiflu 5 more days nebs TID and PRN Prednisone taper from 40 to usual 5mg po daily -- ff up with PCP Sunday 06/25 Pulm 2 weeks Rheum 1 week Influenza B -- continue Tamiflu x 5 more days to complete 5 days therapy -- precautions discussed with patient Hypertension Continue amlodipine Troponin elevation secondary to Infection, Severe Illness Serial troponin did not show any significant increase Ongoing tobacco abuse Advised to quit smoking Nicotine patch Hyperglycemia, likely steroid-induced; prediabetes (hemoglobin A1c of 6.1 last January 2017) a1c 6.4 on ISS Multinodular Thyroid Gland further work up as outpatient Disposition d/c home ff up with PCP, specialists as noted above Total Time Total Time Spent Total Time Spent (In Minutes): 45 minutes Discharge Plan Discharge Items Patient Disposition: Home - Self-Care Reason For Visit: RESP FAILURE Discharge Diagnosis: ACUTE HYPOXIC RESPIRATORY FAILURE, BILATERAL PNEUMONIA; INFLUENZA INFECTION Condition: Good Discharge Goals: Diagnostic testing and Therapeutic intervention Activity: As commented below Activity Comment: NO HEAVY EXERTION UNTIL RE-EVALUATED BY PRIMARY CARE PHYSICIAN Lifting: Wait until after follow-up appointment Exercise/Sports: Wait until after follow-up appointment Driving/Machine Use Comment: NO DRIVING UNTIL RE-EVALUATED BY PRIMARY CARE PHYSICIAN Non-emergency contact: Primary Care Provider Call non-emergency contact if: you have any medication questions Follow-up/Referrals: Fidencio Smith, [Physician] - Diet: Carb Consistent or DM2 and Heart Healthy Addtl Provider Instructions: PLEASE FOLLOW UP WITH PRIMARY CARE PROVIDER DARRIN SAWYER ON FRIDAY JUNE 22, 2018 AT 9:45AM. FOLLOW UP WITH NEW CAR INSPECTOR DR. FIDENCIO SMITH IN 2 WEEKS. PLEASE CALL HIS OFFICE FOR AN APPOINTMENT. CONTACT INFO NOTED ABOVE. FOLLOW UP WITH SHUTDOWN PLANNER IN 1 WEEK. PLEASE RETURN TO ER IMMEDIATELY IF WITH WORSENING SHORTNESS OF BREATH,COUGH, FEVER/CHILLS, WEAKNESS. CALL YOUR PRIMARY CARE PHYSICIAN IF YOU DEVELOP DIARRHEA. NO SMOKING, ALCOHOL. WEAR A MASK AT HOME WHILE COMPLETING ANTIBIOTIC/TAMIFLU COURSE. AVOID CLOSE CONTACT WITH OTHER PERSONS, GOING TO PUBLIC PLACES WHILE COMPLETING ANTIBIOTIC, TAMIFLU. DRINK PLENTY OF FLUIDS. INCLUDE YOGURT IN YOUR DAILY DIET. Prescriptions: New oseltamivir [Tamiflu] 75 mg Capsule 75 mg PO BID 5 Days Qty: 10 RF: 0 ipratropium bromide 0.02 % Solution 0.5 mg inhalation TID 10 Days Qty: 75 RF: 0 levalbuterol HCl 1.25 mg/0.5 mL Solution For Nebulization 1.25 mg inhalation TID 10 Days Qty: 15 RF: 0 prednisone 10 mg tablet 10 mg PO UD Qty: 30 RF: 0 doxycycline hyclate 100 mg capsule 100 mg PO BID 7 Days Qty: 14 RF: 0 Continued sulfasalazine 500 mg Tablet 0.5 g PO BID RF: 0 ondansetron HCl 4 mg Tablet 4 mg PO QID PRN (Reason: Nausea) RF: 0 simvastatin [Zocor] 10 mg Tablet 10 mg PO HS RF: 0 amlodipine 2.5 mg Tablet 2.5 mg PO DAILY RF: 0 lorazepam [Ativan] 0.5 mg Tablet 0.5 mg PO Q8 PRN (Reason: Anxiety) RF: 0 triamterene-hydrochlorothiazid 37.5-25 mg Tablet 1 tab PO DAILY RF: 0 folic acid 1 mg Tablet 1 mg PO DAILY RF: 0 albuterol sulfate [ProAir HFA] 90 mcg/actuation Hfa Aerosol Inhaler 2 puff INHALATION Q4 PRN (Reason: Shortness Of Breath Or Wheezing) RF: 0 fluticasone propionate [Flonase Allergy Relief] 50 mcg/actuation [place],Suspension 1 spray intranasal Q12 PRN (Reason: SINUS CONGESTION) RF: 0 mometasone-formoterol 100-5 mcg/actuation Hfa Aerosol Inhaler 2 puff INHALATION Q12H RF: 0 potassium chloride 20 mEq Tablet Extended Release 20 meq PO BID RF: 0 Changed celecoxib [Celebrex] 200 mg Capsule 200 mg PO DAILY PRN (Reason: pain) Qty: 0 RF: 0 Discontinued prednisone 5 mg Tablet 5 mg PO DAILY RF: 0 Xeljanz XR 11 mg Tablet Extended Release 24 Hr 11 mg PO DAILY RF: 0 Stand-Alone Forms: [facility] [facility] [place] [employer]/Other Patient Handouts: Prediabetes, Diabetes Meal Planning Discharge Orders: Discharge Order (Routine); Ordered 06/19/18 Ordered By: Reji Werner Admission Data Admit Date/Time: 06/15/18 00:00 Attending Provider: Reji Werner Admit Provider: Fidencio Griffin Primary Care Provider: Corona Brice V. Other Providers: Fidencio Griffin ; Jimmy Dhaliwal ; Wesley Flower ; Anel Conroy ; Adan Leahy ; Mariya Brewster ; Fidencio Smith ; Twila Cleveland ; Elizabeth Escobar ; Asif Morales ; Anthony Escobar ; Fernando Grissom ; Ulices Kraus ; Eulogio Amaya ; Jesse Darby Service: Telemetry Medical
--- NOTE | 2018-06-20 09:22 | Coding Query ---
CODING QUERY To promote full compliance with coding requirements relating to patient care, provider participation is requested in all cases of hemstitching machine operator uncertainty. Please assist us with the question(s) below: Coding Question(s): Community acquired PNA/ possible aspiration was documented on the progress notes but not documented on the discharge summary, Can you please clarify the diganosis below? Physician's Response(s): ( ) Pna/possible aspiration POA ( ) PNA/ Possible aspiration Not POA ( X) possible aspiration ruled out ( ) other, Please specify: Thank you Veronica Vega Principal Diagnosis: "that condition established after study, to be chiefly responsible for occasioning the admission of the patient to the hospital for care." Co-Existing Principal Diagnosis: "when two or more diagnoses equally meet the criteria for principal diagnosis as determined by the circumstances of admission, diagnostic work up, and/or therapy provided, and the Alphabetic Index, Tabular List, or another coding guideline does not provide sequencing direction, any one of the diagnoses may be sequenced first." "When the physician has documented what appears to be a current diagnosis in the body of the record, but has not included the diagnosis in the final diagnostic statement, the physician should be asked whether the diagnosis should be added." (Source Coding [facility] 2 QTR90. p3-4) DIANN
== END 2018-06-19 13:24 | disposition home or self-care (01) | DRG 193 ==
LOC: ED 17:41 → 2N 06-15 → SUATTDRO 06-15 → 2N 06-15 00:10

== ENCOUNTER 2019-04-17 19:29 | Inpatient (IN) ==
[2019-04-17] MEDS ORDERED: METOPROLOL TARTRATE 25 MG TAB PO STA (19:44)
[2019-04-17] MEDS ORDERED: dilTIAZem HCl 5 MG/ML 5 ML VIAL IV STA (19:44)
[2019-04-17] MEDS ORDERED: dilTIAZem HCL 125 MG in DEXTROSE 5% 100 ML IV STA (19:44)
[2019-04-17] MEDS ORDERED: SODIUM CHLORIDE 0.9% 1000ML 1,000 ML IV SCH (19:45)
[2019-04-17 20:00] LABS: Hematocrit (blood only) 39.2 % (37-47); Hemoglobin 12.9 g/dL (12.0-16.0); Mean Corpuscular Hemoglobin 27.1 pg (25-34); Mean Corpuscular Hgb Conc 32.9 g/dL (32-36); Mean Corpuscular Volume 82.4 fL (80-100); Mean Platelet Volume 9.8 fL (7.4-10.4); Nucleated RBC # (auto) 0.05 K/uL (0-0); Nucleated RBC % (auto) 0.7 %; Platelet Count 118 K/uL (130-400); RDW Standard Deviation 48.6 fL (36.4-46.3); Red Blood Count 4.76 M/uL (4.2-5.4); White Blood Count 7.66 K/uL (4.8-10.8)
--- NOTE | 2019-04-17 20:10 | Emergency Department Note ---
Entered by Crystal Merino acting as a scribe for Adan Chapman MD History of Present Illness General Chief complaint: Cardiac Assessment Stated complaint: POSS AFIB Time Seen by Provider: 04/17/19 19:35 Source: patient History of Present Illness Onset (ago): hour(s) (2.5) Location: chest Severity: similar to prior episodes Pain Consistency: + intermittent Quality: + other (racing heartbeat ) Associated symptoms: + chest pain (now resolved ) and + other (negative diarrhea; negative congestion; negative abdominal pain; positive increased frequ ency of urination; negative burning with urination); no cough, no nausea/vomiting and no shortness of breath The patient is a 64 year old female who presents to the Emergency Room with complaints of intermittent racing heartbeat that began at 1700, approximately 2.5 hours prior to arrival. The patient states that her heart rate has ranged from 49 to 137, but states that her rate has mostly been elevated. The patient reports some now resolved chest pain during this, but denies shortness of breath. She reports a history of afib, but states that after being put on Metoprolol she has not had many problems with her heart rate. The patient denies any missed doses of Metoprolol. She states that she may be dehydrated. The patient states that her afib occasionally occurs when her Potassium is low, but states that she has not missed any doses of Potassium recently. The patient reports that she is currently undergoing chemotherapy treatments for breast cancer, stating that her last treatment was approximately 2 weeks ago. The patient denies receiving any radiation therapy. She denies any vomiting, diar fatou, cough, congestion, and abdominal pain. The patient states that she has had increased frequency of urination, but denies burning with urination. She denies being on blood thinners. Home Medications Home Medications Medication Instructions Recorded Confirmed Type lorazepam [Ativan] 0.5 mg PO AMHS 06/14/18 04/17/19 History potassium chloride 20 meq PO BID 06/14/18 04/17/19 History simvastatin [Zocor] 10 mg PO HS 06/14/18 04/17/19 History sulfasalazine 500 mg PO BID 06/14/18 04/17/19 History metoprolol tartrate 25 mg PO BID #60 tab 08/09/18 04/17/19 Rx amlodipine 5 mg PO QAM 09/04/18 04/17/19 History folic acid 1 mg tablet 1 mg PO DAILY #30 tab 09/19/18 04/17/19 History ondansetron HCl 4 mg tablet 4 mg PO Q4 PRN tab 09/19/18 04/17/19 History celecoxib [Celebrex] 200 mg PO DAILY 02/25/19 04/17/19 History albuterol sulfate 1 puffs INH Q6H PRN #1 ea 02/26/19 04/17/19 Rx loratadine 10 mg PO DAILY 04/17/19 04/17/19 History prednisone 5 mg PO DAILY 04/17/19 04/17/19 History prochlorperazine maleate 10 mg PO Q6 PRN 04/17/19 04/17/19 History [Compazine] Allergies Allergy/AdvReac Type Severity Reaction Status Date / Time No Known Drug Allergies Allergy Unknown Verified 02/25/19 05:13 Past Med/Surg History Medical History Adenocarcinoma of uterus (Resolved) Breast cancer, right COPD (chronic obstructive pulmonary disease) (Acute) Dyslipidemia (Chronic) HTN (hypertension) (Chronic) Hypokalemia Paroxysmal atrial fibrillation Rheumatoid arthritis (Chronic) Tobacco use Surgical History H/O: hysterectomy (Resolved) History of knee replacement History of tonsillectomy and adenoidectomy Family History Unknown Diabetes Other Hypertension Rheumatoid arthritis Social History Preferred Language: Kiswahili Communication Ability: Effective Driver Merchandiser Required: No Beliefs That Will Affect Care: None Current Living Situation: Spouse and Family Current Living Situation Comment: , two grandchildren current occupational status: disabled Other Information That Helps Us Care for You: No Feels Safe at Home: Yes Safety Concerns: Feels Safe At This Time Smoking Status: Current some day smoker Tobacco Type: cigarettes ; Do You Dip or Chew Tobacco: No ; Second Hand Exposure: No ; Tobacco Cessation Education Requested by Patient: No Hx Alcohol Use: No Hx Substance Use: No Review of Systems See HPI for pertinent positives & negatives. and A total of 10 systems reviewed and were otherwise negative Physical Exam Vital Signs Vital Signs - 24 hr 04/17/19 19:32 04/17/19 19:43 04/17/19 19:46 Temperature 36.3 C L Temperature Source Oral Pulse Rate 137 H 124 H 127 H Pulse Rate from SpO2 Sensor 100 H 112 H Respiratory Rate 18 17 21 Respiratory Effort / Characteristics Non-Labored Respiratory Depth Normal Respiratory Pattern Regular Blood Pressure 146/87 H 143/108 H Blood Pressure Mean 106 129 Pulse Oximetry 99 94 92 Oxygen Delivery Method Room Air Sepsis Recent Fever Within 48 Hours No Sepsis Action Taken by Nursing No Action Required Pulse Oximetry Post Tiitration 04/17/19 19:50 04/17/19 20:00 04/17/19 20:07 Temperature Temperature Source Pulse Rate 119 H 119 H Pulse Rate from SpO2 Sensor 105 H 113 H Respiratory Rate 24 19 Respiratory Effort / Characteristics Respiratory Depth Respiratory Pattern Blood Pressure 126/92 Blood Pressure Mean 97 Pulse Oximetry 93 94 98 Oxygen Delivery Method Room Air Sepsis Recent Fever Within 48 Hours Sepsis Action Taken by Nursing Pulse Oximetry Post Tiitration 98 04/17/19 20:08 04/17/19 20:10 04/17/19 20:20 Temperature Temperature Source Pulse Rate 115 H 103 H 103 H Pulse Rate from SpO2 Sensor Respiratory Rate 22 26 H 21 Respiratory Effort / Characteristics Respiratory Depth Respiratory Pattern Blood Pressure 120/94 Blood Pressure Mean 104 Pulse Oximetry Oxygen Delivery Method Sepsis Recent Fever Within 48 Hours Sepsis Action Taken by Nursing Pulse Oximetry Post Tiitration 04/17/19 20:30 04/17/19 20:40 04/17/19 20:54 Temperature Temperature Source Pulse Rate 112 H 115 H 132 H Pulse Rate from SpO2 Sensor 122 H Respiratory Rate 29 H 20 19 Respiratory Effort / Characteristics Respiratory Depth Respiratory Pattern Blood Pressure 126/76 Blood Pressure Mean 101 Pulse Oximetry 94 Oxygen Delivery Method Sepsis Recent Fever Within 48 Hours Sepsis Action Taken by Nursing Pulse Oximetry Post Tiitration 04/17/19 21:00 04/17/19 21:10 04/17/19 21:20 Temperature Temperature Source Pulse Rate 118 H 108 H 128 H Pulse Rate from SpO2 Sensor 116 H 100 H 118 H Respiratory Rate 19 22 19 Respiratory Effort / Characteristics Respiratory Depth Respiratory Pattern Blood Pressure 120/81 Blood Pressure Mean 90 Pulse Oximetry 94 94 96 Oxygen Delivery Method Sepsis Recent Fever Within 48 Hours Sepsis Action Taken by Nursing Pulse Oximetry Post Tiitration 04/17/19 21:30 04/17/19 21:40 02/19/20 21:50 Temperature Temperature Source Pulse Rate 127 H 122 H 120 H Pulse Rate from SpO2 Sensor 115 H 109 H 104 H Respiratory Rate 19 20 16 Respiratory Effort / Characteristics Respiratory Depth Respiratory Pattern Blood Pressure 122/79 Blood Pressure Mean 89 Pulse Oximetry 95 95 94 Oxygen Delivery Method Sepsis Recent Fever Within 48 Hours Sepsis Action Taken by Nursing Pulse Oximetry Post Tiitration 04/17/19 22:00 04/17/19 22:10 04/17/19 22:20 Temperature Temperature Source Pulse Rate 109 H 71 74 Pulse Rate from SpO2 Sensor 97 H 71 69 Respiratory Rate 26 H 15 25 H Respiratory Effort / Characteristics Respiratory Depth Respiratory Pattern Blood Pressure 101/75 Blood Pressure Mean 76 Pulse Oximetry 92 94 92 Oxygen Delivery Method Sepsis Recent Fever Within 48 Hours Sepsis Action Taken by Nursing Pulse Oximetry Post Tiitration GENERAL: Patient is in no acute distress. HEENT: No acute trauma, normocephalic atraumatic, mucous membranes moist, no nasal congestion, no scleral icterus. NECK: No stridor, no adenopathy, no meningismus, trachea is midline. LUNGS: Clear to auscultation bilaterally, no wheeze, no rhonchi, breath sounds equal. HEART: Tachycardic rate and irregular rhythm. No murmurs. ABDOMEN: Soft, nontender, bowel sounds positive, no hernias, no peritonitis. EXTREMITIES: No cyanosis or edema, full range of motion of all the joints without pain or difficulty, no signs for acute trauma. NEUROLOGIC: Oriented x 3, no acute motor or sensory deficits, no focal weakness. SKIN: No rash, no jaundice, no diaphoresis. Course Course 1937: Past medical records reviewed. The patient was evaluated in room A12B. A complete history and physical exam was performed. 2130: I updated the patient on all results. She states that she is comfortable with being further evaluated in the hospital. 2152: I [facility] the [facility] for further evaluation. Administered Medications Heparin Sodium/Dextrose (Heparin Sodium/Dextrose) 25,000 units in 500 mls @ 0.02 mls/hr IV .Q24H [facility]; Protocol Stop: 05/17/19 23:25 Last Admin: 04/18/19 00:17 Dose: Not Given Documented by: [id number] Metoprolol Tartrate (Lopressor) 25 mg PO BID [facility] Stop: 05/17/19 23:25 Last Admin: 04/18/19 00:10 Dose: Not Given Documented by: [id number] Potassium Chloride (Klor-Con M20) 20 meq PO BID [facility] Stop: 05/18/19 08:59 Last Admin: 04/18/19 00:25 Dose: 20 meq Documented by: [id number] Simvastatin (Zocor) 10 mg PO HS [facility] Stop: 05/18/19 20:59 Last Admin: 04/18/19 00:26 Dose: 10 mg Documented by: [id number] Sulfasalazine (Azulfidine) 500 mg PO BID [facility] Stop: 05/17/19 23:25 Last Admin: 04/18/19 00:11 Dose: 500 mg Documented by: [id number] Discontinued Medications Diltiazem HCl (Cardizem) 10 mg IV NOW STA Stop: 04/17/19 19:45 Last Admin: 04/17/19 20:00 Dose: 10 mg Documented by: [id number] Cosigned by: [id number] Heparin Sodium/Dextrose () 1 ea IV ONE ONE; Protocol Stop: 04/17/19 23:27 Last Admin: 04/18/19 00:17 Dose: Not Given Documented by: [id number] Sodium Chloride (Nss 1000ml) 1,000 mls @ 999 mls/hr IV .Q1H1M [facility] Stop: 04/17/19 20:45 Last Infusion: 04/17/19 21:13 Dose: 0 mls/hr Documented by: [id number] Admin: 04/17/19 20:07 Dose: 999 mls/hr Documented by: [id number] Diltiazem HCl 125 mg/ Dextrose 125 mls @ 0 mls/hr IV .Q0M [facility]; Protocol Stop: 04/17/19 19:45 Last Titration: 04/17/19 23:22 Dose: 0 mg/hr, 0 mls/hr Documented by: [id number] Cosigned by: [id number] Titration: 04/17/19 21:27 Dose: 10 mg/hr, 10 mls/hr Documented by: [id number] Cosigned by: [id number] Admin: 04/17/19 20:00 Dose: 5 mg/hr, 5 mls/hr Documented by: [id number] Cosigned by: [id number] Cefepime HCl (Maxipime) 2,000 mg in 20 mls @ 5 mls/min IV NOW STA; Protocol Stop: 04/17/19 21:19 Last Admin: 04/17/19 22:05 Dose: 5 mls/min Documented by: [id number] Lorazepam (Ativan) 0.5 mg PO TODAY@0015 [facility] Stop: 04/18/19 00:16 Last Admin: 04/18/19 00:25 Dose: 0.5 mg Documented by: [id number] Metoprolol Tartrate (Lopressor) 25 mg PO NOW STA Stop: 04/17/19 19:45 Last Admin: 04/17/19 20:00 Dose: 25 mg Documented by: [id number] Critical Care Time Critical Care Time: Yes Total Critical Care Time: 36 I have personally spent 36 minutes of critical care time in the direct management of this patient. This includes bedside care, interpretation of diagnostic studies, and testing, discussion with consultants, patient, and family members, and other required patient management activities. This 36 minutes is in excess of all separately billable procedures. Medical Decision Making Differential Diagnosis Differential diagnoses include rapid Afib, dehydration, electrolyte imbalance, TX, anemia, infection, SVT, UTI, and others were considered. Medical Records Attestation: I reviewed the patient's medical records. Home Medications Current Medication List: was personally reviewed by me Laboratory Data Attestation: I reviewed the patient's lab results. Result diagrams: 04/17/19 19:53 04/17/19 19:53 Lab Results 04/17/19 04/17/19 04/17/19 Range/Units 19:53 19:53 20:50 WBC 7.66 (4.8-10.8) K/uL RBC 4.76 (4.2-5.4) M/uL Hgb 12.9 (12.0-16.0) g/dL Hct 39.2 (37-47) % MCV 82.4 (80-100) fL MCH 27.1 (25-34) pg MCHC 32.9 (32-36) g/dL RDW Std Deviation 48.6 H (36.4-46.3) fL RDW Coeff of Stella 17.0 H (11.5-14.5) % Plt Count 118 L (130-400) K/uL MPV 9.8 (7.4-10.4) fL Absolute Nucleated RBC 0.05 H (0-0) K/uL Nucleated RBC % (auto) 0.7 % Neutrophils % (Manual) 55.7 % Lymphocytes % (Manual) 24.3 % Monocytes % (Manual) 15.7 % Eosinophils % (Manual) 0.9 % Basophils % (Manual) 1.7 % Metamyelocytes % (Man) 1.7 % Neutrophils # (Manual) 4.27 (1.4-6.5) K/uL Total Absolute Neuts 4.27 (1.4-6.5) K/uL Lymphocytes # (Manual) 1.86 (1.2-3.4) K/uL Monocytes # (Manual) 1.20 H (0.11-0.59) K/uL Eosinophils # (Manual) 0.07 (0-0.5) K/uL Basophils # (Manual) 0.13 (0-0.2) K/uL Metamyelocytes # (Man) 0.13 H (0-0) K/uL Sodium 141 (136-145) mmol/L Potassium 3.6 (3.5-5.1) mmol/L Chloride 108 H (98-107) mmol/L Carbon Dioxide 30 (21-32) mmol/L Anion Gap 3.0 (3-11) BUN 16 (7-18) mg/dl Creatinine 0.88 (0.6-1.2) mg/dl Est Cr Clr Drug Dosing 75.5 ml/min Est GFR ( Amer) 80.5 Est GFR (Non-Af Amer) 69.4 BUN/Creatinine Ratio 17.7 (10-20) Glucose 109 H (70-99) mg/dl Calcium 8.5 (8.5-10.1) mg/dl Magnesium 2.0 (1.8-2.4) mg/dl Total Bilirubin 0.4 (0.2-1) mg/dl AST 11 L (15-37) U/L ALT 15 (12-78) U/L Alkaline Phosphatase 123 H (45-117) U/L Troponin I < 0.015 (0-0.045) ng/ml Total Protein 6.9 (6.4-8.2) gm/dl Albumin 3.3 L (3.4-5.0) gm/dl Globulin 3.6 (2.5-4.0) gm/dl Albumin/Globulin Ratio 0.9 (0.9-2) TSH 2.550 (0.300-4.500) uIu/ml Urine Color Yellow Urine Appearance Clear (Clear) Urine pH 8.0 H (4.5-7.5) Ur Specific [place] 1.011 (1.000-1.030) Urine Protein Negative (Negative) Urine Glucose (UA) Negative (Negative) Urine Ketones Negative (Negative) Urine Blood Negative (Negative) Urine Nitrite Negative (Negative) Urine Bilirubin Negative (Negative) Urine Urobilinogen Negative (Negative) Ur Leukocyte Esterase Negative (Negative) Imaging Data Radiologist's Impression: Radiology results as stated below per my review and the radiologist's interpretation: SINGLE VIEW CHEST CLINICAL HISTORY: Generalized weakness. FINDINGS: An AP, portable, upright chest radiograph is compared to chest x-ray and chest CT dated 02/25/2019. The examination is degraded by portable technique and patient rotation. A left subclavian central venous infusion port is unchanged in position. The heart is top normal for projection. The pulmonary vasculature is noncongested. Chronic interstitial thickening is similar to previous. There is left basilar consolidation. Large pleural effusion or pneumothorax is seen. The skeletal structures are osteopenic. The bony thorax is grossly intact. IMPRESSION: There is left basilar consolidation, which could represent atelectasis versus an infectious/inflammatory pneumonitis. Clinical correlation will be required. ACT 112: Negative or not required by law. Electronically signed by: Adan Su M.D. 04/17/2019 8:36 PM ECG Data Attestation: I personally reviewed and interpreted this ECG as follows: Indication: + tachycardia Rate (beats per minute): 128 Rhythm: + atrial fibrillation (rapid ) ECG Intervals/blocks: + Normal QT-c (464) ECG ST segments: no ST elevation ECG Findings: + PVCs Blood Pressure Blood Pressure Findings: Elevated blood pressure Blood Pressure Disposition: further management by hospitalist [facility] Narrative There is no leukocytosis or concerning anemia. Platelet count slightly low at 118. No significant electrolyte abnormality or kidney failure. No concerning liver enzyme elevation. The patient appeared to be in a euthyroid state. EKG shows rapid A. fib, no acute ischemia. Cardiac enzyme testing x1 is not consistent with acute cardiac injury. Urinalysis does not show infection. Chest film suggests a potential left lower lung pneumonia. On exam, the patient was tachycardic but did not seem in significant distress. The patient was aggressively managed given the rapid rate. She was given a dose of oral metoprolol. She was given a bolus of IV diltiazem and placed on a diltiazem drip. She received IV saline for hydration, IV cefepime as empiric antibiotic coverage. The patient is feeling improved, her heart rate has decreased. I did speak to the patient at length about her findings, I spoke with the case packer and sealer. The on-call hospitalist was consulted. She needs additional rate control, possibly some medication changes. The potential pneumonia requires treatment. Continuous Cardiac Monitoring: An order was placed for continuous cardiac monitoring. The monitor shows a rate of 137 with rapid atrial fibrillation. Impression & Plan Rapid atrial fibrillation, Pneumonia, Tachycardia Discharge Plan Visit Data *Final* Discharge Date/Time: 04/17/19 22:55 Chief Complaint: Cardiac Assessment Stated Complaint: POSS AFIB ED Provider: Adan Chapman Discharge Problem: Rapid atrial fibrillation, Pneumonia, Tachycardia Patient Disposition: Admitted As Inpatient Discharge Instructions Interventions: ED Discharge Assessment Last Done: 04/17/19 22:55 Discharge Problem: Pneumonia Qualifiers: Pneumonia type: due to unspecified organism Laterality: left Lung location: unspecified part of lung Qualified Code(s): J18.9 - Pneumonia, unspecified organism The scribe's documentation has been prepared under my direction and personally reviewed by me in its entirety. I confirm that the note above accurately reflects all work, treatment, procedures, and medical decision making performed by me.
[2019-04-17 20:16] LABS: Alanine Aminotransferase 15 U/L (12-78); Albumin Level 3.3 gm/dl (3.4-5.0); Aspartate Aminotransferase 11 U/L (15-37); BUN Creatinine Ratio 17.7 (10-20); Blood Urea Nitrogen 16 mg/dl (7-18); Calcium 8.5 mg/dl (8.5-10.1); Carbon Dioxide 30 mmol/L (21-32); Chloride 108 mmol/L (98-107); Creatinine Clr Calc Pharmacy 75.5 ml/min; Est GFR (African American) 80.5; Est GFR (Non-African American) 69.4; Glucose 109 mg/dl (70-99); Potassium 3.6 mmol/L (3.5-5.1); Sodium 141 mmol/L (136-145)
[2019-04-17 20:21] LABS: ANC (manual) 4.27 K/uL (1.4-6.5); Basophils # (manual) 0.13 K/uL (0-0.2); Basophils % (manual) 1.7 %; Eosinophils # (manual) 0.07 K/uL (0-0.5); Eosinophils % (manual) 0.9 %; Lymphocytes # (manual) 1.86 K/uL (1.2-3.4); Lymphocytes % (manual) 24.3 %; Metamyelocytes # (manual) 0.13 K/uL (0-0); Metamyelocytes % (manual) 1.7 %; Monocytes % (manual) 15.7 %; Neutrophils # (manual) 4.27 K/uL (1.4-6.5); Neutrophils % (manual) 55.7 %
[2019-04-17 20:27] LABS: Albumin Globulin Ratio 0.9 (0.9-2); Alkaline Phosphatase 123 U/L (45-117); Bilirubin,Total 0.4 mg/dl (0.2-1); Globulin 3.6 gm/dl (2.5-4.0); Total Protein 6.9 gm/dl (6.4-8.2); Troponin I < 0.015 ng/ml (0-0.045)
--- NOTE | 2019-04-17 20:37 | XRay Report ---
SINGLE VIEW CHEST CLINICAL HISTORY: Generalized weakness. FINDINGS: An AP, portable, upright chest radiograph is compared to chest x-ray and chest CT dated . The examination is degraded by portable technique and patient rotation. A left subclavian ce ntral venous infusion port is unchanged in position. The heart is top normal for projection. The pulm onary vasculature is noncongested. Chronic interstitial thickening is similar to previous. There is l eft basilar consolidation. Large pleural effusion or pneumothorax is seen. The skeletal structures ar e osteopenic. The bony thorax is grossly intact. IMPRESSION: There is left basilar consolidation, which could represent atelectasis versus an infectio us/inflammatory pneumonitis. Clinical correlation will be required. ACT 112: Negative or not required by law. Electronically signed by: Adan Su M.D. 04/17/2019 8:36 PM
[2019-04-17] MEDS ORDERED: CEFEPIME 2,000 MG/20 ML VIAL IV STA (21:16)
[2019-04-17 21:27] LABS: Appearance Urine Clear (Clear); Bilirubin Urine Negative (Negative); Blood Urine Negative (Negative); Color Urine Yellow; Glucose Urine UA Negative (Negative); Ketones Urine Negative (Negative); Leukocyte Esterase Urine Negative (Negative); Nitrite Urine Negative (Negative); Protein Urine Negative (Negative); Specific Gravity Urine 1.011 (1.000-1.030); Urobilinogen Urine Negative (Negative)
[2019-04-17] MEDS ORDERED: ACETAMINOPHEN 325 MG TAB PO PRN (23:26)
[2019-04-17] MEDS ORDERED: POLYETHYLENE (MIRALAX) 17 GM PACK PO PRN (23:26)
[2019-04-17] MEDS ORDERED: PROCHLORPERAZINE MALEATE 10 MG TAB PO PRN (23:26)
[2019-04-17] MEDS ORDERED: NITROGLYCERIN SL 0.4 MG/TAB TAB SL PRN (23:26)
[2019-04-17] MEDS ORDERED: STAT IV Infusion **Titration per Protocol STA (23:26)
[2019-04-17] MEDS ORDERED: Heparin IV Low Dose *NO* Bolus IV ONE (23:26)
[2019-04-17] MEDS ORDERED: HEPARIN SODIUM/DEXTROSE 25,000 UNITS/500 ML BAG IV SCH (23:26)
[2019-04-17] MEDS ORDERED: dilTIAZem HCL 125 MG in DEXTROSE 5% 100 ML IV SCH (23:26)
[2019-04-17] MEDS ORDERED: ONDANSETRON INJ 2 MG/ML 2 ML VIAL IV PRN (23:26)
[2019-04-17] MEDS ORDERED: Nursing to Pharmacy Communication ONE (23:34)
[2019-04-18] MEDS ORDERED: ALBUTEROL HFA 8 GM INHALER INH PRN (00:03)
[2019-04-18] MEDS: METOPROLOL TARTRATE 25 MG TAB PO SCH ×2 (00:10→08:41)
[2019-04-18] MEDS: sulfaSALAzine 500 MG TABLET PO SCH ×3 (00:11→20:35)
[2019-04-18] MEDS ORDERED: LORazepam 0.5 MG TAB PO SCH (00:15)
--- NOTE | 2019-04-18 00:21 | History and Physical Report ---
DATE OF ADMISSION: 04/17/2019 CHIEF COMPLAINT: Rapid AFib. HISTORY OF PRESENT ILLNESS: This is a 64-year-old female with past medical history significant for hyperlipidemia, COPD, paroxysmal atrial fibrillation, hypertension, atherosclerosis of aorta, morbid obesity, rheumatoid arthritis, recent diagnosis of breast cancer in January, currently on neoadjuvant chemotherapy, planned for surgery after chemo as per patient. She is to be on Coumadin in the past for her AFib, but it was stopped because of left calf hematoma, now presents with palpitation. In the evening, she was resting when she noticed that her heart was racing. She checked her pulse and it was high and she decided to come to the ER. In the ER, she was in rapid AFib and heart rate in 130s, started on Cardizem drip. Currently, seems to be under control. Denies any chest pain, no shortness of breath during the episode. No nausea, no vomiting, no cough, no fever, no chills, no headache, no dizziness, no blurred visions, no earache. Has some runny nose early in the morning that resolved. No epistaxis. Appetite is okay. No recent weight gain, weight loss, no difficulty swallowing. Sleeps okay. Walks ok, sometimes uses cane while walking. Lives with her and 2 grandkids. No diarrhea or constipation, no blood in the stools or black stools. No hematuria or burning micturition, no swelling in the legs, no rash. ALLERGIES: No known drug allergies. PAST MEDICAL HISTORY: As mentioned above. PAST SURGICAL HISTORY: Right total knee arthroplasty, bilateral breast lesion excision, bunion surgery, carpal tunnel surgery bilaterally, colonoscopy, hysteroscopy with biopsy, laparoscopy with vaginal hysterectomy with removal of tubes, tonsillectomy, adenoidectomy. MEDICATIONS: The patient is on albuterol 1 puff inhalation q. 6 hours p.r.n., amlodipine 5 mg q.a.m., Celebrex 200 mg p.o. daily, folic acid 1 mg p.o. daily, loratadine 10 mg p.o. daily, Ativan 0.5 mg p.o. a.m. and at bedtime, metoprolol tartrate 25 mg p.o. b.i.d., Zofran 4 mg p.o. q. 4 hours p.r.n., potassium chloride 20 mEq p.o. b.i.d., prednisone 5 mg p.o. daily, Compazine 10 mg p.o. q. 6 hours p.r.n., Zocor 10 mg p.o. at bedtime, sulfasalazine 500 mg p.o. b.i.d. FAMILY HISTORY: Significant for brother has rheumatoid arthritis. Father has hypertension. Mother has hypertension. Grandmother has diabetes. SOCIAL HISTORY: , smokes 0.5 packs a day for 20 years. No alcohol use, no drug use. REVIEW OF SYMPTOMS: As per HPI. Rest of the review of symptoms are negative. PHYSICAL EXAMINATION: GENERAL: The patient is of moderate build, not in acute distress. VITAL SIGNS: Temperature 36.3, pulse in 90s and 130s, currently in 70s, respiratory rate 20's, blood pressure 120/94, oxygen 98% on room air. HEENT: No pallor, no icterus. Pupils equal, round, and reactive to light. NECK: No JVD, no neck mass, no carotid bruit. CARDIOVASCULAR: S1, S2 heard, regular rate and rhythm. No murmur. RESPIRATORY SYSTEM: Normal AP diameter. No accessory muscle use. No wheezing, no crackles. ABDOMEN: Soft, bowel sounds present, nontender. No distention. CENTRAL NERVOUS SYSTEM: Cranial nerves II-XII grossly intact, nonfocal. EXTREMITIES: No edema, no erythema. LABORATORY DATA: WBC 7.6, hemoglobin 12.9, hematocrit 39.2, platelets 118. Sodium 141, potassium 3.6, chloride 108, bicarbonate 30, BUN 16, creatinine 0.8, serum glucose 109, calcium 8.5, magnesium 2, total bilirubin 0.4, AST 11, ALT 15, alkaline phosphatase 123. Troponin I less than 0.015. TSH 2.5. Urinalysis negative. Chest x-ray, there is left basilar consolidation, could be infectious versus atelectasis. Clinical correlation recommended. EKG, AFib with rate of 128. ASSESSMENT AND PLAN: This is a 64-year-old female who presents with rapid atrial fibrillation. 1. Rapid atrial fibrillation, history of paroxysmal atrial fibrillation: On Lopressor 25 mg p.o. b.i.d. at home. History of Coumadin, [id number] score of 2, but it was stopped because of left calf hematoma in September. Currently on Cardizem drip in the ER which we will continue. Seems to be under control. We will monitor in tele floor. Will keep n.p.o. Cardiology consult in a.m. The patient does not want to be on Coumadin again, but she is okay for IV heparin tonight. We will place on IV heparin low dose tonight and further anticoagulation as per cardiology. We will follow echocardiogram and serial cardiac enzymes. 2. Recent diagnosis of breast cancer, right side: Currently on chemo by Heme/Onc, last chemo was 2 weeks ago. 3. Mild thrombocytopenia, probably from recent chemo: Follow up labs. 4. History of hypertension: On amlodipine and Lopressor, continue Cardizem drip. We will monitor blood pressure. 5. History of chronic obstructive pulmonary disease: Currently stable. Continue home inhalers. 6. History of rheumatoid arthritis: Continue sulfasalazine, prednisone and folic acid. 7. History of hyperlipidemia. Continue Zocor. 8. Deep venous thrombosis prophylaxis: Started on IV heparin. DISPOSITION: Monitor in tele floor. Expect to discharge home and follow with PT/OT prior to discharge. Social Service to help with discharge planning. Level 1 full code. Addendum: Converted to sinus rhythm and Cardizem held. Iv heparin not started.Await cardiology input. DIANN
[2019-04-18] MEDS: POTASSIUM CHLORIDE 20 MEQ TABCR PO SCH ×3 (00:25→20:34)
[2019-04-18] MEDS: SIMVASTATIN 10 MG TAB PO SCH ×2 (00:26→20:35)
[2019-04-18 06:10] LABS: Hematocrit (blood only) 36.9 % (37-47); Hemoglobin 11.8 g/dL (12.0-16.0); Mean Corpuscular Hemoglobin 26.7 pg (25-34); Mean Corpuscular Volume 83.5 fL (80-100); Mean Platelet Volume 9.8 fL (7.4-10.4); Nucleated RBC # (auto) 0.04 K/uL (0-0); Nucleated RBC % (auto) 0.6 %; Platelet Count 114 K/uL (130-400); RDW Coefficient of Variation 17.4 % (11.5-14.5); RDW Standard Deviation 50.7 fL (36.4-46.3); Red Blood Count 4.42 M/uL (4.2-5.4)
[2019-04-18 06:31] LABS: ANC (manual) 4.46 K/uL (1.4-6.5); Basophils # (manual) 0.06 K/uL (0-0.2); Basophils % (manual) 0.9 %; Lymphocytes # (manual) 1.47 K/uL (1.2-3.4); Lymphocytes % (manual) 21.9 %; Metamyelocytes # (manual) 0.12 K/uL (0-0); Metamyelocytes % (manual) 1.8 %; Monocytes # (manual) 0.29 K/uL (0.11-0.59); Monocytes % (manual) 4.4 %; Myelocytes # (manual) 0.29 K/uL (0-0); Myelocytes % (manual) 4.4 %; Neutrophils # (manual) 4.46 K/uL (1.4-6.5); Neutrophils % (manual) 66.6 %; RBC Morphology Unremarkable; Toxic Granulation Occasional
[2019-04-18 06:46] LABS: BUN Creatinine Ratio 22.7 (10-20); Blood Urea Nitrogen 16 mg/dl (7-18); Calcium 8.3 mg/dl (8.5-10.1); Carbon Dioxide 27 mmol/L (21-32); Chloride 111 mmol/L (98-107); Creatinine Clr Calc Pharmacy 91.6 ml/min; Est GFR (African American) 102.6; Est GFR (Non-African American) 88.5; Glucose 103 mg/dl (70-99); Potassium 3.7 mmol/L (3.5-5.1); Sodium 141 mmol/L (136-145)
[2019-04-18 06:51] LABS: Troponin I < 0.015 ng/ml (0-0.045)
[2019-04-18] MEDS ORDERED: cefTRIAXone SODIUM 2,000 MG in DEXTROSE 5% 50 ML IV SCH (07:00)
[2019-04-18] MEDS: LORATADINE 10 MG TAB PO SCH (08:41)
[2019-04-18] MEDS: LORazepam 0.5 MG TAB PO SCH ×2 (08:41→20:34)
[2019-04-18] MEDS: CeleBREX 200 MG CAP PO SCH (08:41)
[2019-04-18] MEDS: FOLIC ACID 1 MG TAB PO SCH (08:41)
[2019-04-18] MEDS: predniSONE 5 MG TAB PO SCH (08:41)
[2019-04-18] MEDS: AMLODIPINE BESYLATE 5 MG TAB PO SCH (08:42)
[2019-04-18] MEDS ORDERED: DOXYCYCLINE HYCLATE 100 MG CAP PO SCH (09:00)
--- NOTE | 2019-04-18 10:32 | Cardiology Consultation ---
Date of Consultation April 18, 2019 Assessment & Plan (1) Paroxysmal atrial fibrillation: Patient high risk for recurrence of atrial fibrillation especially in light of upcoming therapies and surgeries as planned. Discussed options of management. Given hospitalization currently we have recommended initiation of antiarrhythmic therapy with sotalol. Will begin today. Once again patient wishes to avoid anticoagulation. Chads vas 2 score 12 Anticipate hospitalization at least additional 48 hours to initiate arrhythmia therapy Continue potassium supplementation given chronic prednisone use Echocardiogram will be repeated and compared to study of January given Adriamycin use as chemotherapy agent, recurrent atrial fibrillation (2) Breast cancer, right: (3) Tobacco use: History of Present Illness Reason for Consultation: Paroxysmal atrial fibrillation Requesting Physician: Dr. Dent Attending Physician: Celeste Cloud MD History of Present Illness Patient is a 64-year-old female with ongoing issues 1. Paroxysmal atrial fibrillation with a chads Vasc score of 2 2. Hypertension 3. Rheumatoid arthritis previously on methotrexate 4. Dyslipidemia. 5. Spontaneous hematoma while on Coumadin 6. Breast carcinoma initiating chemotherapy with Adriamycin/Cytoxan Patient presents this admission last evening having developed a sense of tachypalpitations consistent with her past atrial fibrillation. Noted no chest pains shortness of breath dizziness lightness syncope or near syncope. Resented to the emergency room where she was begun on IV diltiazem with subsequent spontaneous conversion to sinus rhythm. No fevers chills unexplained infec tions. No bleeding difficulties. Currently not on anticoagulation due to past complication with Coumadin, ruptured Chamberlain's cyst with calf hematoma spontaneous. Patient wishes to avoid anticoagulation past atrial fibrillation events associated with hypokalemia Currently comfortable. Does anticipate ongoing chemotherapy for breast carcinoma as well as surgery as part of clinical course. Currently denies headache visual changes cough hoarseness wheeze or hemoptysis notes no melena medication dysuria hematuria. Modestly active about home though without recent limitations. Does smoke intermittently. Cares for 2 5-year-old twins Echocardiogram January 2019 normal structural heart. Allergies Allergy/AdvReac Type Severity Reaction Status Date / Time No Known Drug Allergies Allergy Unknown Verified 02/25/19 05:13 Home Medications Home Medications Medication Instructions Recorded Confirmed Type lorazepam [Ativan] 0.5 mg PO AMHS 06/14/18 04/17/19 History potassium chloride 20 meq PO BID 06/14/18 04/17/19 History simvastatin [Zocor] 10 mg PO HS 06/14/18 04/17/19 History sulfasalazine 500 mg PO BID 06/14/18 04/17/19 History metoprolol tartrate 25 mg PO BID #60 tab 08/09/18 04/17/19 Rx amlodipine 5 mg PO QAM 09/04/18 04/17/19 History folic acid 1 mg tablet 1 mg PO DAILY #30 tab 09/19/18 04/17/19 History ondansetron HCl 4 mg tablet 4 mg PO Q4 PRN tab 09/19/18 04/17/19 History celecoxib [Celebrex] 200 mg PO DAILY 02/25/19 04/17/19 History albuterol sulfate 1 puffs INH Q6H PRN #1 ea 02/26/19 04/17/19 Rx loratadine 10 mg PO DAILY 04/17/19 04/17/19 History prednisone 5 mg PO DAILY 04/17/19 04/17/19 History prochlorperazine maleate 10 mg PO Q6 PRN 04/17/19 04/17/19 History [Compazine] Patient History Medical History Adenocarcinoma of uterus (Resolved) Breast cancer, right COPD (chronic obstructive pulmonary disease) (Acute) Dyslipidemia (Chronic) HTN (hypertension) (Chronic) Hypokalemia Paroxysmal atrial fibrillation Rheumatoid arthritis (Chronic) Tobacco use Surgical History H/O: hysterectomy (Resolved) History of knee replacement History of tonsillectomy and adenoidectomy Family History Unknown Diabetes Other Hypertension Rheumatoid arthritis Social History Preferred Language: Palauan Communication Ability: Effective Core Placer Required: No Beliefs That Will Affect Care: None Current Living Situation: Spouse and Family Current Living Situation Comment: , two grandchildren current occupational status: disabled Other Information That Helps Us Care for You: No Feels Safe at Home: Yes Safety Concerns: Feels Safe At This Time Smoking Status: Current some day smoker Tobacco Type: cigarettes ; Do You Dip or Chew Tobacco: No ; Second Hand Exposure: No ; Tobacco Cessation Education Requested by Patient: No Hx Alcohol Use: No Hx Substance Use: No Review of Systems Review of Systems: All systems reviewed & are unremarkable except as noted in HPI & below Physical Exam Constitutional: WD/WN, vitals as above Eyes: PERRL, conjunctivae normal, anicteric sclerae ENMT: external ear and nose normal, oropharynx normal Neck: trachea midline, no thyromegaly Respiratory: normal respiratory effort Auscultation: + diminished lung sounds (But clear) Cardiovascular: Rate/Rhythm: regular rate and regular rhythm Heart Sounds: normal S1 and normal S2; no gallop and no murmur Palpation: normal PMI Vessels: normal carotid upstroke and radial pulses present; no JVD and no carotid bruit Extremities: no edema Gastrointestinal (Abdomen): normal bowel sounds, soft, nontender, no hepatosplenomegaly Musculoskeletal: no cyanosis or clubbing, extremities motor strength 5/5 Skin: no rashes, warm and dry Neurologic: PERRL, EOMI, accommodation nl, no face palsy, no dysarthria Psychiatric: A+Ox3, euthymic affect Results & Data ([facility]) Vital Signs (Past 12 Hours) Vital Signs Temp Pulse Pulse Pulse Resp BP Pulse Ox 04/18/19 08:18 36.6 C 62 20 126/81 92 04/18/19 03:58 36.5 C 66 16 128/71 95 04/17/19 23:51 71 04/17/19 23:32 71 04/17/19 23:10 36.6 C 76 22 113/78 93 04/17/19 22:50 69 17 90 04/17/19 22:40 70 18 90 Laboratory Results Laboratory Results - last 24 hr 04/17/19 04/17/19 04/17/19 19:53 19:53 20:50 WBC 7.66 RBC 4.76 Hgb 12.9 Hct 39.2 MCV 82.4 MCH 27.1 MCHC 32.9 RDW Std Deviation 48.6 H RDW Coeff of Stella 17.0 H Plt Count 118 L MPV 9.8 Absolute Nucleated RBC 0.05 H Nucleated RBC % (auto) 0.7 Neutrophils % (Manual) 55.7 Lymphocytes % (Manual) 24.3 Monocytes % (Manual) 15.7 Eosinophils % (Manual) 0.9 Basophils % (Manual) 1.7 Metamyelocytes % (Man) 1.7 Myelocytes % (Man) Neutrophils # (Manual) 4.27 Total Absolute Neuts 4.27 Lymphocytes # (Manual) 1.86 Monocytes # (Manual) 1.20 H Eosinophils # (Manual) 0.07 Basophils # (Manual) 0.13 Metamyelocytes # (Man) 0.13 H Myelocytes # (Manual) Toxic Granulation RBC Morphology Sodium 141 Potassium 3.6 Chloride 108 H Carbon Dioxide 30 Anion Gap 3.0 BUN 16 Creatinine 0.88 Est Cr Clr Drug Dosing 75.5 Est GFR ( Amer) 80.5 Est GFR (Non-Af Amer) 69.4 BUN/Creatinine Ratio 17.7 Glucose 109 H Calcium 8.5 Magnesium 2.0 Total Bilirubin 0.4 AST 11 L ALT 15 Alkaline Phosphatase 123 H Troponin I < 0.015 Total Protein 6.9 Albumin 3.3 L Globulin 3.6 Albumin/Globulin Ratio 0.9 TSH 2.550 Urine Color Yellow Urine Appearance Clear Urine pH 8.0 H Ur Specific [place] 1.011 Urine Protein Negative Urine Glucose (UA) Negative Urine Ketones Negative Urine Blood Negative Urine Nitrite Negative Urine Bilirubin Negative Urine Urobilinogen Negative Ur Leukocyte Esterase Negative Hepatitis C Ab Screen 04/17/19 04/17/19 04/18/19 23:45 23:45 05:41 WBC 6.70 RBC 4.42 Hgb 11.8 L Hct 36.9 L MCV 83.5 MCH 26.7 MCHC 32.0 RDW Std Deviation 50.7 H RDW Coeff of Stella 17.4 H Plt Count 114 L MPV 9.8 Absolute Nucleated RBC 0.04 H Nucleated RBC % (auto) 0.6 Neutrophils % (Manual) 66.6 Lymphocytes % (Manual) 21.9 Monocytes % (Manual) 4.4 Eosinophils % (Manual) Basophils % (Manual) 0.9 Metamyelocytes % (Man) 1.8 Myelocytes % (Man) 4.4 Neutrophils # (Manual) 4.46 Total Absolute Neuts 4.46 Lymphocytes # (Manual) 1.47 Monocytes # (Manual) 0.29 Eosinophils # (Manual) Basophils # (Manual) 0.06 Metamyelocytes # (Man) 0.12 H Myelocytes # (Manual) 0.29 H Toxic Granulation Occasional RBC Morphology Unremarkable Sodium Potassium Chloride Carbon Dioxide Anion Gap BUN Creatinine Est Cr Clr Drug Dosing Est GFR ( Amer) Est GFR (Non-Af Amer) BUN/Creatinine Ratio Glucose Calcium Magnesium Total Bilirubin AST ALT Alkaline Phosphatase Troponin I 0.020 Total Protein Albumin Globulin Albumin/Globulin Ratio TSH Urine Color Urine Appearance Urine pH Ur Specific [place] Urine Protein Urine Glucose (UA) Urine Ketones Urine Blood Urine Nitrite Urine Bilirubin Urine Urobilinogen Ur Leukocyte Esterase Hepatitis C Ab Screen Neg 04/18/19 05:41 WBC RBC Hgb Hct MCV MCH MCHC RDW Std Deviation RDW Coeff of Stella Plt Count MPV Absolute Nucleated RBC Nucleated RBC % (auto) Neutrophils % (Manual) Lymphocytes % (Manual) Monocytes % (Manual) Eosinophils % (Manual) Basophils % (Manual) Metamyelocytes % (Man) Myelocytes % (Man) Neutrophils # (Manual) Total Absolute Neuts Lymphocytes # (Manual) Monocytes # (Manual) Eosinophils # (Manual) Basophils # (Manual) Metamyelocytes # (Man) Myelocytes # (Manual) Toxic Granulation RBC Morphology Sodium 141 Potassium 3.7 Chloride 111 H Carbon Dioxide 27 Anion Gap 3.0 BUN 16 Creatinine 0.72 Est Cr Clr Drug Dosing 91.6 Est GFR ( Amer) 102.6 Est GFR (Non-Af Amer) 88.5 BUN/Creatinine Ratio 22.7 H Glucose 103 H Calcium 8.3 L Magnesium 2.0 Total Bilirubin AST ALT Alkaline Phosphatase Troponin I < 0.015 Total Protein Albumin Globulin Albumin/Globulin Ratio TSH Urine Color Urine Appearance Urine pH Ur Specific [place] Urine Protein Urine Glucose (UA) Urine Ketones Urine Blood Urine Nitrite Urine Bilirubin Urine Urobilinogen Ur Leukocyte Esterase Hepatitis C Ab Screen
[2019-04-18] MEDS ORDERED: SOTALOL HCL 80 MG TAB PO ONE (10:45)
--- NOTE | 2019-04-18 13:27 | Hospitalist Progress Note ---
Date of Service April 18, 2019 Assessment & Plan (1) Paroxysmal atrial fibrillation: (2) Rapid atrial fibrillation: Paroxysmal Afib with RVR now sinus [employer] recommendation appreciated. Started on sotalol. Continue telemetry monitoring and serial EKGs Chest x-ray did report a left basilar consolidation which could be atelectasis versus infectious. Patient denied any fevers or respiratory symptoms at this time. Had no leukocytosis and has been afebrile. Will discontinue antibiotics and monitor for now Patient stated she does not want any anticoagulation (3) Breast cancer, right: To follow-up outpatient with oncologist for continued treatment (4) COPD (chronic obstructive pulmonary disease): Stable (5) Rheumatoid arthritis: Continue home prednisone and sulfasalazine (6) HTN (hypertension): Continue amlodipine Blood pressure stable Monitor DVT ppx - SCD for now and ambulate Will discuss pharmacological DVT ppx again tomorrow Admission and Anticipated Discharge Date Admission Date: April 17, 2019 Subjective Seen and examined Has no complaints Palpitations have resolved Physical Exam Constitutional: well nourished and + well hydrated; no acute distress Eyes: PERRL, conjunctivae normal, anicteric sclerae Neck: trachea midline, no thyromegaly Respiratory: normal respiratory effort, lungs clear to auscultation Cardiovascular: RRR, no murmur, no edema Heart Sounds: normal S1 and normal S2 Gastrointestinal (Abdomen): normal bowel sounds, soft, nontender, no hepatosplenomegaly Musculoskeletal: no cyanosis or clubbing, extremities motor strength 5/5 Neurologic: PERRL, EOMI, accommodation nl, no face palsy, no dysarthria Psychiatric: A+Ox3, euthymic affect Results & Data ([facility]) Vital Signs (Past 12 Hours) Vital Signs Temp Pulse Pulse Resp BP Pulse Ox 04/18/19 12:04 36.8 C 64 17 106/75 94 04/18/19 08:18 36.6 C 62 20 126/81 92 04/18/19 03:58 36.5 C 66 16 128/71 95 Laboratory Results Abnormal lab results 04/17/19 04/17/19 04/17/19 Range/Units 19:53 19:53 20:50 Hgb (12.0-16.0) g/dL Hct (37-47) % RDW Std Deviation 48.6 H (36.4-46.3) fL RDW Coeff of Stella 17.0 H (11.5-14.5) % Plt Count 118 L (130-400) K/uL Absolute Nucleated RBC 0.05 H (0-0) K/uL Monocytes # (Manual) 1.20 H (0.11-0.59) K/uL Metamyelocytes # (Man) 0.13 H (0-0) K/uL Myelocytes # (Manual) (0-0) K/uL Chloride 108 H (98-107) mmol/L BUN/Creatinine Ratio (10-20) Glucose 109 H (70-99) mg/dl Calcium (8.5-10.1) mg/dl AST 11 L (15-37) U/L Alkaline Phosphatase 123 H (45-117) U/L Albumin 3.3 L (3.4-5.0) gm/dl Urine pH 8.0 H (4.5-7.5) 04/18/19 04/18/19 Range/Units 05:41 05:41 Hgb 11.8 L (12.0-16.0) g/dL Hct 36.9 L (37-47) % RDW Std Deviation 50.7 H (36.4-46.3) fL RDW Coeff of Stella 17.4 H (11.5-14.5) % Plt Count 114 L (130-400) K/uL Absolute Nucleated RBC 0.04 H (0-0) K/uL Monocytes # (Manual) (0.11-0.59) K/uL Metamyelocytes # (Man) 0.12 H (0-0) K/uL Myelocytes # (Manual) 0.29 H (0-0) K/uL Chloride 111 H (98-107) mmol/L BUN/Creatinine Ratio 22.7 H (10-20) Glucose 103 H (70-99) mg/dl Calcium 8.3 L (8.5-10.1) mg/dl AST (15-37) U/L Alkaline Phosphatase (45-117) U/L Albumin (3.4-5.0) gm/dl Urine pH (4.5-7.5) (1) COPD (chronic obstructive pulmonary disease) COPD type: COPD with acute exacerbation Qualified Code(s): J44.1 - Chronic obstructive pulmonary disease with (acute) exacerbation
--- NOTE | 2019-04-18 18:37 | Electrocardiogram Report ---
Test Reason : Blood Pressure : / mmHG Vent. Rate : 128 BPM Atrial Rate : 136 BPM P-R Int : 000 ms QRS Dur : 076 ms QT Int : 318 ms P-R-T Axes : 000 060 055 degrees QTc Int : 464 ms Atrial fibrillation with rapid ventricular response with premature ventricular or aberrantly conducte d complexes Abnormal ECG When compared with ECG of 25-FEB-2019 04:50, Atrial fibrillation has replaced Sinus rhythm Vent. rate has increased BY 51 BPM Confirmed by Abel Harris ([id number]) on 04/18/2019 6:36:31 PM Referred By: REFERRED SELF Confirmed By:Abel Harris
[2019-04-18] MEDS: SOTALOL HCL 80 MG TAB PO SCH (20:34)
[2019-04-18] MEDS: HEPARIN 100 UNIT/ML 5ML FLUSH FLUSH PRN (20:37)
--- NOTE | 2019-04-18 22:32 | Electrocardiogram Report ---
Test Reason : Blood Pressure : / mmHG Vent. Rate : 060 BPM Atrial Rate : 060 BPM P-R Int : 120 ms QRS Dur : 088 ms QT Int : 434 ms P-R-T Axes : 053 067 063 degrees QTc Int : 434 ms Normal sinus rhythm Normal ECG When compared with ECG of 17-APR-2019 19:39, Sinus rhythm has replaced Atrial fibrillation Vent. rate has decreased BY 68 BPM Confirmed by Abel Harris ([id number]) on 04/18/2019 10:31:52 PM Referred By: REFERRED SELF Confirmed By:Abel Harris
[2019-04-19 06:40] LABS: Hematocrit (blood only) 36.8 % (37-47); Hemoglobin 11.9 g/dL (12.0-16.0); Mean Corpuscular Hemoglobin 26.7 pg (25-34); Mean Corpuscular Hgb Conc 32.3 g/dL (32-36); Mean Corpuscular Volume 82.7 fL (80-100); Mean Platelet Volume 9.9 fL (7.4-10.4); Nucleated RBC # (auto) 0.02 K/uL (0-0); Nucleated RBC % (auto) 0.3 %; Platelet Count 108 K/uL (130-400); RDW Coefficient of Variation 17.3 % (11.5-14.5); RDW Standard Deviation 49.8 fL (36.4-46.3); Red Blood Count 4.45 M/uL (4.2-5.4); White Blood Count 5.77 K/uL (4.8-10.8)
[2019-04-19 07:17] LABS: BUN Creatinine Ratio 24.4 (10-20); Calcium 8.3 mg/dl (8.5-10.1); Creatinine Clr Calc Pharmacy 102.3 ml/min; Est GFR (African American) 109.3; Est GFR (Non-African American) 94.3; Potassium 3.6 mmol/L (3.5-5.1)
[2019-04-19] MEDS: SOTALOL HCL 80 MG TAB PO SCH ×2 (08:22→20:04)
[2019-04-19] MEDS: predniSONE 5 MG TAB PO SCH (08:22)
[2019-04-19] MEDS: sulfaSALAzine 500 MG TABLET PO SCH ×2 (08:23→20:03)
[2019-04-19] MEDS: LORATADINE 10 MG TAB PO SCH (08:23)
[2019-04-19] MEDS: FOLIC ACID 1 MG TAB PO SCH (08:23)
[2019-04-19] MEDS: CeleBREX 200 MG CAP PO SCH (08:23)
[2019-04-19] MEDS: POTASSIUM CHLORIDE 20 MEQ TABCR PO SCH ×2 (08:24→20:03)
[2019-04-19] MEDS: LORazepam 0.5 MG TAB PO SCH ×2 (08:25→20:02)
--- NOTE | 2019-04-19 10:56 | Cardiology Progress Note ---
Date of Service April 19, 2019 Assessment & Plan (1) Paroxysmal atrial fibrillation: Patient high risk for recurrence of atrial fibrillation especially in light of upcoming therapies and surgeries as planned. Discussed options of management. Given hospitalization currently we have recommended initiation of antiarrhythmic therapy with sotalol. Once again patient wishes to avoid anticoagulation. Chads vas 2 score 12 Echocardiogram demonstrates preserved LV systolic function Blood pressures are trending higher. No complications on current sotalol dosing will continue telemetry at least an additional 24 hours (2) Breast cancer, right: (3) Tobacco use: (4) HTN (hypertension): Add losartan 25 mg p.o. daily for blood pressure control and positive cardiac effect Subjective Patient seen and examined, chart, medications, telemetry reviewed. No further arrhythmias. No dizziness or lightheadedness. Overall feels well EKGs without significant QT prolongation. Blood pressures trending higher. Patient notes blood pressures elevated in oncologist office as well Physical Exam Constitutional: WD/WN, vitals as above Eyes: PERRL, conjunctivae normal, anicteric sclerae ENMT: external ear and nose normal, oropharynx normal Neck: trachea midline, no thyromegaly Respiratory: normal respiratory effort Auscultation: + diminished lung sounds (But clear) Cardiovascular: Rate/Rhythm: regular rate and regular rhythm Heart Sounds: normal S1 and normal S2; no gallop and no murmur Palpation: normal PMI Vessels: normal carotid upstroke and radial pulses present; no JVD and no carotid bruit Extremities: no edema Gastrointestinal (Abdomen): normal bowel sounds, soft, nontender, no hepatosplenomegaly Musculoskeletal: no cyanosis or clubbing, extremities motor strength 5/5 Skin: no rashes, warm and dry Neurologic: PERRL, EOMI, accommodation nl, no face palsy, no dysarthria Psychiatric: A+Ox3, euthymic affect Results & Data Vital Signs (Past 12 Hours) Vital Signs Temp Pulse Pulse Resp BP Pulse Ox Pulse Ox 04/19/19 08:00 56 L 96 04/19/19 07:13 36.4 C L 55 L 18 161/93 H 93 04/19/19 04:30 36.5 C 70 18 141/72 H 97 04/19/19 00:17 58 L 04/18/19 23:34 36.6 C 60 16 155/89 H 93 Laboratory Results Laboratory Results - last 24 hr 04/18/19 04/19/19 04/19/19 11:37 06:10 06:10 WBC 5.77 RBC 4.45 Hgb 11.9 L Hct 36.8 L MCV 82.7 MCH 26.7 MCHC 32.3 RDW Std Deviation 49.8 H RDW Coeff of Stella 17.3 H Plt Count 108 L MPV 9.9 Absolute Nucleated RBC 0.02 H Nucleated RBC % (auto) 0.3 Sodium 141 Potassium 3.6 Chloride 111 H Carbon Dioxide 28 Anion Gap 2.0 L BUN 16 Creatinine 0.64 Est Cr Clr Drug Dosing 102.3 Est GFR ( Amer) 109.3 Est GFR (Non-Af Amer) 94.3 BUN/Creatinine Ratio 24.4 H Glucose 89 Calcium 8.3 L Troponin I < 0.015
[2019-04-19] MEDS: LOSARTAN POTASSIUM 25 MG TAB PO SCH (12:00)
--- NOTE | 2019-04-19 13:04 | Hospitalist Progress Note ---
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 Started on sotalol yesterday QTc is 436 on EKG this AM Continue telemetry monitoring and serial EKGs Chest x-ray did report a left basilar consolidation which could be atelectasis versus infectious. Had no leukocytosis and has been afebrile. Has been off antibiotics Patient stated she does not want any anticoagulation (3) Breast cancer, right: To follow-up outpatient with oncologist for continued treatment (4) COPD (chronic obstructive pulmonary disease): Stable (5) Rheumatoid arthritis: Continue home prednisone and sulfasalazine (6) HTN (hypertension): Continue amlodipine Blood pressure stable Monitor DVT ppx - hep sq. Agree to hep sq while inpatient Admission and Anticipated Discharge Date Admission Date: April 17, 2019 Subjective Patient seen and examined. Has no complaints at all Tolerating sotalol well. Physical Exam Constitutional: + well hydrated; no acute distress and not ill appearing Eyes: PERRL, conjunctivae normal, anicteric sclerae ENMT: external ear and nose normal, oropharynx normal Respiratory: normal respiratory effort, lungs clear to auscultation Cardiovascular: RRR, no murmur, no edema Heart Sounds: normal S1 and normal S2 Gastrointestinal (Abdomen): normal bowel sounds, soft, nontender, no hepatosplenomegaly Musculoskeletal: no cyanosis or clubbing, extremities motor strength 5/5 Neurologic: PERRL, EOMI, accommodation nl, no face palsy, no dysarthria Psychiatric: A+Ox3, euthymic affect Results & Data ([facility]) Vital Signs (Past 12 Hours) Vital Signs Temp Pulse Pulse Resp BP Pulse Ox Pulse Ox 04/19/19 11:03 36.4 C L 60 18 125/75 96 04/19/19 08:00 56 L 96 04/19/19 07:13 36.4 C L 55 L 18 161/93 H 93 04/19/19 04:30 36.5 C 70 18 141/72 H 97 Laboratory Results Abnormal lab results 04/19/19 04/19/19 Range/Units 06:10 06:10 Hgb 11.9 L (12.0-16.0) g/dL Hct 36.8 L (37-47) % RDW Std Deviation 49.8 H (36.4-46.3) fL RDW Coeff of Stella 17.3 H (11.5-14.5) % Plt Count 108 L (130-400) K/uL Absolute Nucleated RBC 0.02 H (0-0) K/uL Chloride 111 H (98-107) mmol/L Anion Gap 2.0 L (3-11) BUN/Creatinine Ratio 24.4 H (10-20) Calcium 8.3 L (8.5-10.1) mg/dl (1) COPD (chronic obstructive pulmonary disease) COPD type: COPD with acute exacerbation Qualified Code(s): J44.1 - Chronic ob structive pulmonary disease with (acute) exacerbation
[2019-04-19] MEDS: SIMVASTATIN 10 MG TAB PO SCH (20:03)
[2019-04-19] MEDS: HEPARIN SOD 5,000 UNIT/0.5 ML VIAL SQ SCH (20:07)
--- NOTE | 2019-04-19 21:51 | Electrocardiogram Report ---
Test Reason : Blood Pressure : / mmHG Vent. Rate : 056 BPM Atrial Rate : 056 BPM P-R Int : 120 ms QRS Dur : 086 ms QT Int : 452 ms P-R-T Axes : 058 075 074 degrees QTc Int : 436 ms Sinus bradycardia Otherwise normal ECG When compared with ECG of 18-APR-2019 06:14, No significant change was found Confirmed by Abel Harris ([id number]) on 04/19/2019 9:50:57 PM Referred By: REFERRED SELF Confirmed By:Abel Harris
[2019-04-20] MEDS: HEPARIN SOD 5,000 UNIT/0.5 ML VIAL SQ SCH ×2 (06:03→14:16)
[2019-04-20] MEDS: LORazepam 0.5 MG TAB PO SCH (08:03)
[2019-04-20] MEDS: SOTALOL HCL 80 MG TAB PO SCH ×2 (08:03→17:01)
[2019-04-20] MEDS: sulfaSALAzine 500 MG TABLET PO SCH (08:04)
[2019-04-20] MEDS: POTASSIUM CHLORIDE 20 MEQ TABCR PO SCH (08:05)
[2019-04-20] MEDS: FOLIC ACID 1 MG TAB PO SCH (08:06)
[2019-04-20] MEDS: LORATADINE 10 MG TAB PO SCH (08:06)
[2019-04-20] MEDS: CeleBREX 200 MG CAP PO SCH (08:06)
[2019-04-20] MEDS: LOSARTAN POTASSIUM 25 MG TAB PO SCH (08:07)
[2019-04-20] MEDS: predniSONE 5 MG TAB PO SCH (08:07)
[2019-04-20] MEDS: HEPARIN 100 UNIT/ML 5ML FLUSH FLUSH PRN (09:13)
--- NOTE | 2019-04-20 11:53 | Cardiology Progress Note ---
Date of Service April 20, 2019 Assessment & Plan (1) Paroxysmal atrial fibrillation: Patient high risk for recurrence of atrial fibrillation especially in light of upcoming therapies and surgeries as planned. Discussed options of management. Given hospitalization currently we have recommended initiation of antiarrhythmic therapy with sotalol. Once again patient wishes to avoid anticoagulation. Chads vas 2 score 12 Echocardiogram demonstrates preserved LV systolic function Plan: Continue sotalol 40 mg twice daily. P.m. dose this evening at 1700. EKG to be repeated at 1800 and if no QT prolongation patient may be discharged home with planned outpatient follow-up, Dr. Gimenez (2) Breast cancer, right: (3) Tobacco use: (4) HTN (hypertension): Add losartan 25 mg p.o. daily for blood pressure control and positive cardiac effect, resume amlodipine currently on hold Subjective Patient seen and examined, chart, medications, telemetry reviewed. No further arrhythmias on telemetry. No dizziness or lightheadedness. Physical Exam Constitutional: WD/WN, vitals as above Eyes: PERRL, conjunctivae normal, anicteric sclerae ENMT: external ear and nose normal, oropharynx normal Neck: trachea midline, no thyromegaly Respiratory: normal respiratory effort Auscultation: + diminished lung sounds (But clear) Cardiovascular: Rate/Rhythm: regular rate and regular rhythm Heart Sounds: normal S1 and normal S2; no gallop and no murmur Palpation: normal PMI Vessels: normal carotid upstroke and radial pulses present; no JVD and no carotid bruit Extremities: no edema Gastrointestinal (Abdomen): normal bowel sounds, soft, nontender, no hepatosplenomegaly Musculoskeletal: no cyanosis or clubbing, extremities motor strength 5/5 Skin: no rashes, warm and dry Neurologic: PERRL, EOMI, accommodation nl, no face palsy, no dysarthria Psychiatric: A+Ox3, euthymic affect Results & Data Vital Signs (Past 12 Hours) Vital Signs Temp Pulse Pulse Resp BP Pulse Ox Pulse Ox 04/20/19 11:46 36.5 C 56 L 18 151/96 H 94 04/20/19 10:26 58 L 04/20/19 08:00 36.6 C 59 L 18 158/86 H 96 04/20/19 04:09 36.5 C 62 20 167/98 H 98 04/20/19 01:28 60
[2019-04-20] MEDS: AMLODIPINE BESYLATE 5 MG TAB PO SCH (12:15)
--- NOTE | 2019-04-20 15:26 | Discharge Summary ---
Date of Service April 20, 2019 Admission HPI Per Admitting Provider 64-year-old female with past medical history significant for hyperlipidemia, COPD, paroxysmal atrial fibrillation, hypertension, atherosclerosis of aorta, morbid obesity, rheumatoid arthritis, recent diagnosis of breast cancer in January, currently on neoadjuvant chemotherapy, planned for surgery after chemo as per patient. She is to be on Coumadin in the past for her AFib, but it was stopped because of left calf hematoma, now presents with palpitation. In the evening, she was resting when she noticed that her heart was racing. She checked her pulse and it was high and she decided to come to the ER. In the ER, she was in rapid AFib and heart rate in 130s, started on Cardizem drip. Currently, seems to be under control. Denies any chest pain, no shortness of breath during the episode. No nausea, no vomiting, no cough, no fever, no chills, no headache, no dizziness, no blurred visions, no earache. Has some runny nose early in the morning that resolved. No epistaxis. Appetite is okay. No recent weight gain, weight loss, no difficulty swallowing. Sleeps okay. Walks ok, sometimes uses cane while walking. Lives with her and 2 grandkids. No diarrhea or constipation, no blood in the stools or black stools. No hematuria or burning micturition, no swelling in the legs, no rash. Admission Exam Per Admitting Provider GENERAL: The patient is of moderate build, not in acute distress. VITAL SIGNS: Temperature 36.3, pulse in 90s and 130s, currently in 70s, respiratory rate 20's, blood pressure 120/94, oxygen 98% on room air. HEENT: No pallor, no icterus. Pupils equal, round, and reactive to light. NECK: No JVD, no neck mass, no carotid bruit. CARDIOVASCULAR: S1, S2 heard, regular rate and rhythm. No murmur. RESPIRATORY SYSTEM: Normal AP diameter. No accessory muscle use. No wheezing, no crackles. ABDOMEN: Soft, bowel sounds present, nontender. No distention. CENTRAL NERVOUS SYSTEM: Cranial nerves II-XII grossly intact, nonfocal. EXTREMITIES: No edema, no erythema. Principal Diagnosis Paroxysmal atrial fibrillation with rapid ventricular rate Discharge Exam Constitutional + well hydrated; no acute distress and not ill appearing Eyes PERRL, conjunctivae normal, anicteric sclerae ENMT external ear and nose normal, oropharynx normal Respiratory normal respiratory effort, lungs clear to auscultation Cardiovascular RRR, no murmur, no edema Gastrointestinal (Abdomen) normal bowel sounds, soft, nontender, no hepatosplenomegaly Musculoskeletal no cyanosis or clubbing, extremities motor strength 5/5 Neurologic PERRL, EOMI, accommodation nl, no face palsy, no dysarthria Psychiatric A+Ox3, euthymic affect Discharge Data Allergies Allergy/AdvReac Type Severity Reaction Status Date / Time No Known Drug Allergies Allergy Unknown Verified 02/25/19 05:13 Consultations 04/17/19 21:50 ED Decision to Admit Stat 04/17/19 23:26 Consult Case Management - Discharge Planning Routine 04/18/19 08:00 Consult Cardiology Routine Hospital Course (1) Paroxysmal atrial fibrillation: (2) Rapid atrial fibrillation: Paroxysmal Afib with RVR spontaneously converted to sinus rhythm Was evaluated by cardiology Patient was started on sotalol and monitored with serial EKG for QTC Chest x-ray did report a left basilar consolidation which is likely atelectasis. Had no leukocytosis and has been afebrile. Antibiotics started on admission was discontinued Patient has a Evert Vascor of 2. However, she declined any anticoagulation after multiple discussions. Discharge on sotalol 40mg bid. Metoprolol was discontinued (3) Breast cancer, right: To follow-up outpatient with oncologist for continued treatment (4) COPD (chronic obstructive pulmonary disease): Stable (5) Rheumatoid arthritis: Continue home prednisone and sulfasalazine (6) HTN (hypertension): Continue amlodipine. Was started on losartan. Continue this on discharge Total Time Total Time Spent Total Time Spent (In Minutes): 25 Total Time Includes: Examination of the Patient, Discharge Planning, Medication Reconciliation and Communication With Other Providers Discharge Plan Discharge Items Patient Disposition: Home - Self-Care Reason For Visit: PALPITATIONS Discharge Diagnosis: Paroxysmal A. fib Activity: Resume your previous activity Non-emergency contact: Primary Care Provider and Sponsorship Coordinator Call non-emergency contact if: you have any medication questions and your symptoms worsen Follow-up/Referrals: Corona Brice DO [Primary Care Provider] - Diet: Heart Healthy Addtl Attending Provider Instructions: Roberth. You came to the hospital complaining of palpitations. You were found to be in rapid atrial fibrillation. You were evaluated by piping designer and started on new medication called sotalol. You were monitored in the hospital for dyspnea medication. You atrial fibrillation is currently converted back to sinus rhythm. Please continue to take your medication and follow-up with your piping designer outpatient. You were also started on losartan for better blood pressure control. It was a pleasure taking care of you. Pending Studies at Discharge: No Stand-Alone Forms: My [facility], Smoking Cessation Medications and DC Order Prescriptions: New sotalol 80 mg Tablet 40 mg PO BID 30 Days Qty: 30 RF: 0 losartan 25 mg Tablet 25 mg PO QAM 30 Days Qty: 30 RF: 0 Continued folic acid 1 mg tablet 1 mg PO DAILY Qty: 30 RF: 0 ondansetron HCl 4 mg tablet 4 mg PO Q4 PRN (Reason: Nausea) RF: 0 celecoxib [Celebrex] 200 mg Capsule 200 mg PO DAILY RF: 0 albuterol sulfate 90 mcg/actuation aerosol powdr breath activated 1 puffs INH Q6H PRN (Reason: shortness of breath or wheezing) Qty: 1 RF: 0 prednisone 5 mg tablet 5 mg PO DAILY RF: 0 prochlorperazine maleate [Compazine] 10 mg tablet 10 mg PO Q6 PRN (Reason: Nausea) RF: 0 loratadine 10 mg Tablet 10 mg PO DAILY RF: 0 sulfasalazine 500 mg Tablet 500 mg PO BID RF: 0 simvastatin [Zocor] 10 mg Tablet 10 mg PO HS RF: 0 lorazepam [Ativan] 0.5 mg Tablet 0.5 mg PO AMHS RF: 0 potassium chloride 20 mEq Tablet Extended Release 20 meq PO BID RF: 0 amlodipine 5 mg Tablet 5 mg PO QAM RF: 0 Discontinued metoprolol tartrate 25 mg tablet 25 mg PO BID Qty: 60 RF: 0 Discharge Orders: Discharge Order (Routine); Ordered 04/20/19 Ordered By: Celeste Cloud Admission Data Admit Date/Time: 04/17/19 22:25 Attending Provider: Celeste Cloud I. Admit Provider: Ta Bruno Primary Care Provider: Corona Brice V. Other Providers: Ta Bruno ; [place],Fernando L Other Interventions: Discharge Summary Assessment (RN) Last Done: 04/20/19 17:48 DC Date/Time DO NOT enter until pt leaves facility: 04/20/19 18:50
--- NOTE | 2019-04-23 11:04 | Coding Query ---
CODING QUERY To promote full compliance with coding requirements relating to patient care, provider participation is requested in all cases of aircraft de icer installer uncertainty. Please assist us with the question(s) below: Coding Question(s): Patient admitted with atrial fibrillation . Documentation progress notes state COPD / exacerbation ; Discharge Summary states COPD stable. Seeking to clarify conflicting documentation. Please check below the phrase below that describes the diagnosis treated during this Inpatient stay. Thank you ! REDD Haq [facility] Physician's Response(s): ____x___ Stable COPD COPD Exacerbation Cannot clinically correlate if COPD was stable or in exacerbation Other/ Please document/ : Principal Diagnosis: "that condition established after study, to be chiefly responsible for occasioning the admission of the patient to the hospital for care." Co-Existing Principal Diagnosis: "when two or more diagnoses equally meet the criteria for principal diagnosis as determined by the circumstances of admission, diagnostic work up, and/or therapy provided, and the Alphabetic Index, Tabular List, or another coding guideline does not provide sequencing direction, any one of the diagnoses may be sequenced first." "When the physician has documented what appears to be a current diagnosis in the body of the record, but has not included the diagnosis in the final diagnostic statement, the physician should be asked whether the diagnosis should be added." (Source Coding Clinic 2 QTR90. p3-4) DIANN
== END 2019-04-20 18:50 | disposition home or self-care (01) | DRG 309 ==
LOC: ED 19:29 → 2E 22:25

== ENCOUNTER 2019-12-01 07:38 | Inpatient (IN) ==
[2019-12-01] MEDS ORDERED: SODIUM CHLORIDE 0.9% 500 ML IV SCH (08:00)
[2019-12-01] MEDS ORDERED: methylPREDNISolone 125 MG/2 ML VIAL IV STA (08:03)
[2019-12-01] MEDS ORDERED: cefTRIAXone SODIUM 1,000 MG/50 ML BAG IV STA (08:03)
[2019-12-01] MEDS ORDERED: AZITHROMYCIN 500 MG in DEXTROSE 5% 250 ML IV STA (08:03)
[2019-12-01] MEDS ORDERED: ALBUT/IPRATROP 3MG/0.5MG NEB 3 ML VIAL INH STA (08:03)
--- NOTE | 2019-12-01 08:11 | Emergency Department Note ---
History of Present Illness General Chief complaint: Shortness of Breath/Dyspnea Stated complaint: SOB,CANCER PT Time Seen by Provider: 12/01/19 07:50 Source: patient Mode of arrival: ambulatory Limitations: no limitations History of Present Illness Provider complaint: Shortness of breath Maximum Pain Intensity: 2 This is a 64-year-old female who presents to the ED with a chief complaint of shortness of breath for the past week or so. The patient has a history of COPD. She also has history of right breast cancer. She is getting radiation therapy. She already finished chemotherapy. She continues to smoke. She reports a cough that is productive of a greenish sputum on occasion. Her breathing worsened to the point where she could not take it anymore. She does have an inhaler at home. The patient denies any fevers. No nausea vomiting. No chest pains. Home Medications Home Medications Medication Instructions Recorded Confirmed Type lorazepam [Ativan] 0.5 mg PO AMHS 06/14/18 12/01/19 History potassium chloride 20 meq PO BID 06/14/18 12/01/19 History simvastatin [Zocor] 10 mg PO HS 06/14/18 12/01/19 History sulfasalazine 500 mg PO BID 06/14/18 12/01/19 History folic acid 1 mg tablet 1 mg PO QAM #30 tab 09/19/18 12/01/19 History ondansetron HCl 4 mg tablet 4 mg PO Q4 PRN tab 09/19/18 12/01/19 History celecoxib [Celebrex] 200 mg PO QAM 02/25/19 12/01/19 History prednisone 5 mg PO QAM 04/17/19 12/01/19 History albuterol sulfate 90 mcg/actuation 1 puffs INH Q6H PRN #1 ea 10/01/19 12/01/19 Rx breath activated powder inhaler amlodipine 10 mg tablet 10 mg PO QAM 10/28/19 12/01/19 History losartan 50 mg tablet 50 mg PO QAM 10/28/19 12/01/19 History oxycodone 5 mg capsule 5 mg PO Q6H PRN 10/28/19 12/01/19 History metronidazole 1 % topical gel 1 applic TOPICAL DAILY #60 g 11/06/19 12/01/19 Rx Allergies Allergy/AdvReac Type Severity Reaction Status Date / Time No Known Drug Allergies Allergy Unknown Verified 12/01/19 08:59 mineral oil [From Aquaphor] AdvReac Mild c/o Verified 12/01/19 08:59 increased itching with application of same petrolatum,hydrophilic AdvReac Mild c/o Verified 12/01/19 08:59 [From Aquaphor] increased itching with application of same Past Med/Surg History Medical History Acute hypoxemic respiratory failure Adenocarcinoma of uterus Arthritis Breast cancer, right COPD (chronic obstructive pulmonary disease) MOURA (dyspnea on exertion) Dyslipidemia Elevated troponin History of chemotherapy HTN (hypertension) Hypokalemia Hypoxia Influenza A Influenza B Nicotine dependence Paroxysmal atrial fibrillation Rheumatoid arthritis 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) Tachycardia Surgical History History of knee replacement History of tonsillectomy and adenoidectomy Lipoma of neck Family History Unknown Diabetes Other Hypertension Rheumatoid arthritis Social History Smoking Status: Current every day smoker Tobacco Type: Cigarettes Second Hand Exposure: No; Hx Alcohol Use: No Hx Substance Use: No Preferred Language: [place]i Communication Ability: Effective Ecologist Required: No Beliefs That Will Affect Care: None marital status: Current Living Situation: Spouse and Family Current Living Situation Comment: , two grandchildren current occupational status: disabled current occupation: retired How many Children do You have: 2 How many Children do You have Comment: alive & well. Feels Safe at Home: Yes Childhood Exposure to Second-Hand Smoke: Yes Dental Care, Regularly: No Assistive Devices: None Review of Systems A total of 10 systems reviewed and were otherwise negative Physical Exam Vital Signs Vital Signs - 24 hr 12/01/19 07:41 12/01/19 07:45 12/01/19 08:01 Temperature 36.8 C Temperature Source Oral Pulse Rate 81 77 Pulse Rate [Finger] Pulse Rate from SpO2 Sensor 78 Respiratory Rate 20 30 H Respiratory Depth Normal Blood Pressure 167/93 H Blood Pressure Mean 117 Pulse Oximetry 91 87 L 94 Oxygen Delivery Method Room Air Room Air Oxygen Flow Rate 0 2 Sepsis Recent Fever Within 48 Hours No Sepsis New/Unexplained Change in Mental Status N/A Sepsis Action Taken by Nursing No Action Required Oxygen Flow Rate - Titration 2 Pulse Oximetry Post Tiitration 92 12/01/19 08:04 12/01/19 08:30 12/01/19 08:34 Temperature Temperature Source Pulse Rate 75 Pulse Rate [Finger] 75 Pulse Rate from SpO2 Sensor 75 Respiratory Rate 23 16 Respiratory Depth Blood Pressure 151/80 H Blood Pressure Mean 109 Pulse Oximetry 92 93 92 Oxygen Delivery Method Nasal Cannula Room Air Oxygen Flow Rate 2 2 Sepsis Recent Fever Within 48 Hours Sepsis New/Unexplained Change in Mental Status Sepsis Action Taken by Nursing Oxygen Flow Rate - Titration Pulse Oximetry Post Tiitration 12/01/19 09:00 12/01/19 10:00 12/01/19 10:44 Temperature Temperature Source Pulse Rate 76 73 76 Pulse Rate [Finger] Pulse Rate from SpO2 Sensor 74 75 75 Respiratory Rate 33 H 20 25 H Respiratory Depth Blood Pressure 126/76 138/83 Blood Pressure Mean 94 117 Pulse Oximetry 92 91 91 Oxygen Delivery Method Oxymask Oxymask Oxymask Oxygen Flow Rate 4 4 4 Sepsis Recent Fever Within 48 Hours Sepsis New/Unexplained Change in Mental Status Sepsis Action Taken by Nursing Oxygen Flow Rate - Titration Pulse Oximetry Post Tiitration 12/01/19 11:00 Temperature Temperature Source Pulse Rate 73 Pulse Rate [Finger] Pulse Rate from SpO2 Sensor 72 Respiratory Rate 22 Respiratory Depth Blood Pressure 109/77 Blood Pressure Mean 86 Pulse Oximetry 90 Oxygen Delivery Method Oxygen Flow Rate Sepsis Recent Fever Within 48 Hours Sepsis New/Unexplained Change in Mental Status Sepsis Action Taken by Nursing Oxygen Flow Rate - Titration Pulse Oximetry Post Tiitration CONSTITUTIONAL/VITAL SIGNS: Reviewed / noted above. GENERAL: Non-toxic in appearance. INTEGUMENTARY: Warm, dry, and [place]. HEAD: Normocephalic. EYES: without scleral icterus or trauma. ENT/OROPHARYNX: clear and moist. LYMPHADENOPATHY/NECK: Is supple without lymphadenopathy or meningismus. RESPIRATORY: Lungs diminished bilaterally with occasional wheeze or rhonchi. CARDIOVASCULAR: Regular rate and rhythm. GI/ABDOMEN: Soft and nontender. No organomegaly or pulsatile mass. No rebound or guarding. Normal bowel sounds. EXTREMITIES: Warm and well perfused. BACK: No CVA tenderness. NEUROLOGICAL: Intact without focal deficits. PSYCHIATRIC: normal affect. MUSCULOSKELETAL: Normally developed with good muscle tone. TRIAGE NURSING DOCUMENTATION REVIEWED. Course Administered Medications Discontinued Medications Albuterol (Albut/Ipratrop 3mg/0.5mg Neb 3 Ml Vial) 3 ml INH NOW STA Stop: 12/01/19 08:04 Last Admin: 12/01/19 08:30 Dose: 3 ml Documented by: [id number] Sodium Chloride (Nss) 500 mls @ 999 mls/hr IV .Q31M KEENAN Stop: 12/01/19 08:30 Last Infusion: 12/01/19 08:45 Dose: 0 mls/hr Documented by: [id number] Admin: 12/01/19 08:14 Dose: 999 mls/hr Documented by: [id number] Ceftriaxone Sodium (Rocephin) 1,000 mg in 50 mls @ 100 mls/hr IV NOW STA Stop: 12/01/19 08:32 Last Infusion: 12/01/19 09:31 Dose: 0 mls/hr Documented by: [id number] Admin: 12/01/19 08:48 Dose: 100 mls/hr Documented by: [id number] Azithromycin 500 mg/ Dextrose 255 mls @ 127.5 mls/hr IV NOW STA Stop: 12/01/19 10:02 Last Infusion: 12/01/19 11:20 Dose: 0 mls/hr Documented by: [id number] Admin: 12/01/19 08:48 Dose: 127.5 mls/hr Documented by: [id number] Ioversol (Optiray 320 125ml) 120 ml IV ONCE ONE Stop: 12/01/19 09:41 Last Admin: 12/01/19 09:41 Dose: 120 ml Documented by: [id number] Methylprednisolone (Methylprednisolone 125 Mg/2 Ml Vial) 125 mg IV NOW STA Stop: 12/01/19 08:04 Last Admin: 12/01/19 08:14 Dose: 125 mg Documented by: [id number] Ondansetron HCl (Ondansetron Inj 2 Mg/Ml 2 Ml Vial) 4 mg IV NOW STA Stop: 12/01/19 09:14 Last Admin: 12/01/19 09:22 Dose: 4 mg Documented by: [id number] Medical Decision Making Differential Diagnosis The differential was considered includes acute myocardial infarction, acute coronary syndrome, myocarditis, pericarditis, pericardial effusions /tamponad, esophageal perforation, pulmonary embolism, pneumonia, pneumothorax, cardiomyopathy, congestive heart, anemia , COPD/asthma exacerbation. Medical Records Attestation: I reviewed the patient's medical records. Home Medications Current Medication List: was personally reviewed by me Laboratory Data Attestation: I reviewed the patient's lab results. Result diagrams: 12/01/19 08:12 12/01/19 08:12 Lab Results 12/01/19 12/01/19 12/01/19 Range/Units 08:03 08:03 08:12 WBC 6.08 (4.8-10.8) K/uL RBC 4.70 (4.2-5.4) M/uL Hgb 12.7 (12.0-16.0) g/dL Hct 39.6 (37-47) % MCV 84.3 (80-100) fL MCH 27.0 (25-34) pg MCHC 32.1 (32-36) g/dL RDW Std Deviation 48.0 H (36.4-46.3) fL RDW Coeff of Stella 15.8 H (11.5-14.5) % Plt Count 264 (130-400) K/uL MPV 9.2 (7.4-10.4) fL Immature Gran % (Auto) 0.3 % Neut % (Auto) 74.1 % Lymph % (Auto) 15.0 % Powell % (Auto) 8.7 % Eos % (Auto) 1.6 % Baso % (Auto) 0.3 % Neut # (Auto) 4.50 (1.4-6.5) K/uL Lymph # (Auto) 0.91 L (1.2-3.4) K/uL Powell # (Auto) 0.53 (0.11-0.59) K/uL Eos # (Auto) 0.10 (0-0.5) K/uL Baso # (Auto) 0.02 (0-0.2) K/uL Immature Gran # (Auto) 0.02 (0.00-0.02) K/uL PT (9.0-12.0) Seconds INR (0.9-1.1) APTT (21.0-31.0) Seconds PTT Ratio Sodium (136-145) mmol/L Potassium (3.5-5.1) mmol/L Chloride (98-107) mmol/L Carbon Dioxide (21-32) mmol/L Anion Gap (3-11) BUN (7-18) mg/dl Creatinine (0.6-1.2) mg/dl Est Cr Clr Drug Dosing Est GFR ( Amer) Est GFR (Non-Af Amer) BUN/Creatinine Ratio (10-20) Glucose (70-99) mg/dl Lactate 1.7 (0.4-2.0) mmol/L Calcium (8.5-10.1) mg/dl Total Bilirubin (0.2-1) mg/dl AST (15-37) U/L ALT (12-78) U/L Alkaline Phosphatase (45-117) U/L Troponin I (0-0.045) ng/ml Total Protein (6.4-8.2) gm/dl Albumin (3.4-5.0) gm/dl Globulin (2.5-4.0) gm/dl Albumin/Globulin Ratio (0.9-2) Urine Color Yellow Urine Appearance Clear (Clear) Urine pH 7.0 (4.5-7.5) Ur Specific [place] 1.006 (1.000-1.030) Urine Protein Negative (Negative) Urine Glucose (UA) Negative (Negative) Urine Ketones Negative (Negative) Urine Blood Negative (Negative) Urine Nitrite Negative (Negative) Urine Bilirubin Negative (Negative) Urine Urobilinogen Negative (Negative) Ur Leukocyte Esterase 1+ H (Negative) Urine WBC (Auto) 1-5 (0-5) /hpf Urine RBC (Auto) 0-4 (0-4) /hpf U Hyaline Cast (Auto) 0 (0-5) /lpf U Epithel Cells (Auto) >30 H (0-5) /lpf Urine Bacteria (Auto) Negative (Negative) 12/01/19 12/01/19 Range/Units 08:12 08:12 WBC (4.8-10.8) K/uL RBC (4.2-5.4) M/uL Hgb (12.0-16.0) g/dL Hct (37-47) % MCV (80-100) fL MCH (25-34) pg MCHC (32-36) g/dL RDW Std Deviation (36.4-46.3) fL RDW Coeff of Stella (11.5-14.5) % Plt Count (130-400) K/uL MPV (7.4-10.4) fL Immature Gran % (Auto) % Neut % (Auto) % Lymph % (Auto) % Powell % (Auto) % Eos % (Auto) % Baso % (Auto) % Neut # (Auto) (1.4-6.5) K/uL Lymph # (Auto) (1.2-3.4) K/uL Powell # (Auto) (0.11-0.59) K/uL Eos # (Auto) (0-0.5) K/uL Baso # (Auto) (0-0.2) K/uL Immature Gran # (Auto) (0.00-0.02) K/uL PT 11.9 (9.0-12.0) Seconds INR 1.1 (0.9-1.1) APTT 26.8 (21.0-31.0) Seconds PTT Ratio 1.0 Sodium 138 (136-145) mmol/L Potassium 3.7 (3.5-5.1) mmol/L Chloride 101 (98-107) mmol/L Carbon Dioxide 31 (21-32) mmol/L Anion Gap 6.0 (3-11) BUN 11 (7-18) mg/dl Creatinine 0.54 L (0.6-1.2) mg/dl Est Cr Clr Drug Dosing Not Reportable Est GFR ( Amer) 115.6 Est GFR (Non-Af Amer) 99.7 BUN/Creatinine Ratio 20.9 H (10-20) Glucose 91 (70-99) mg/dl Lactate (0.4-2.0) mmol/L Calcium 9.6 (8.5-10.1) mg/dl Total Bilirubin 0.5 (0.2-1) mg/dl AST 26 (15-37) U/L ALT 23 (12-78) U/L Alkaline Phosphatase 87 (45-117) U/L Troponin I < 0.015 (0-0.045) ng/ml Total Protein 6.8 (6.4-8.2) gm/dl Albumin 2.8 L (3.4-5.0) gm/dl Globulin 4.0 (2.5-4.0) gm/dl Albumin/Globulin Ratio 0.7 L (0.9-2) Urine Color Urine Appearance (Clear) Urine pH (4.5-7.5) Ur Specific [place] (1.000-1.030) Urine Protein (Negative) Urine Glucose (UA) (Negative) Urine Ketones (Negative) Urine Blood (Negative) Urine Nitrite (Negative) Urine Bilirubin (Negative) Urine Urobilinogen (Negative) Ur Leukocyte Esterase (Negative) Urine WBC (Auto) (0-5) /hpf Urine RBC (Auto) (0-4) /hpf U Hyaline Cast (Auto) (0-5) /lpf U Epithel Cells (Auto) (0-5) /lpf Urine Bacteria (Auto) (Negative) Imaging Data Radiologist's Impression: Chest x-ray: IMPRESSION: 1. Diffuse elevation of interstitium, likely secondary to congestive failure although an infectious/inflammatory processes could appear similar 2. Nonspecific peripheral consolidation at the left lung base. A pulmonary infarct cannot be excluded 3. Suspected small left pleural effusion CT scan of the chest: IMPRESSION: 1. No evidence of acute pulmonary embolism 2. Interval development of pathologic mediastinal and hilar lymphadenopathy 3. Interval development of bilateral pleural effusions right greater than left 4. Interlobular septal edema, lymphangitic carcinomatosis versus cardiogenic pulmonary edema 5. Lower lobe bronchial wall thickening 6. Scattered subcentimeter pulmonary nodules 7. Bibasilar consolidation, atelectasis favored over pneumonia ECG Data Attestation: I personally reviewed and interpreted this ECG as follows: Indication: + SOB/dyspnea Rate (beats per minute): 75 Rhythm: + normal sinus ECG ST segments: no ST elevation ECG Findings: no PVCs MDM Narrative This is a 64-year-old female with a history of COPD, smoker and history of right breast cancer has worsening shortness of breath progressively over the past we ek or so with a productive cough with a green sputum on occasion. Vital signs reveal hypertension. Pulse ox was 87% on room air. This improved to 93% on 2 L nasal cannula. Chest x-ray and CT scan of the chest was performed. There was no PE. There is pathologic mediastinal and hilar lymphadenopathy. There are bilateral pleural effusions right greater than left. There is lymphangitic carcinomatosis versus cardiogenic pulmonary edema. Also atelectasis in the bases is favored. The patient was given albuterol nebulizer as well as empirically started on IV Zithromax and IV Rocephin. She was given IV Solu- Medrol and IV Zofran as well as some IV fluids. She will be seen by the hospitalist for further inpatient evaluation and care. Impression & Plan COPD with acute exacerbation, Pleural effusion, Hypoxia Discharge Plan Visit Data Chief Complaint: Shortness of Breath/Dyspnea Stated Complaint: SOB,CANCER PT ED Provider: Deni Samano Discharge Problem: COPD with acute exacerbation, Pleural effusion, Hypoxia Patient Disposition: Admitted As Inpatient Discharge Instructions Interventions: ED Discharge Assessment Last Done: 12/01/19 11:43
[2019-12-01 08:20] LABS: Basophils # (auto) 0.02 K/uL (0-0.2); Basophils % (auto) 0.3 %; Eosinophils % (auto) 1.6 %; Hematocrit (blood only) 39.6 % (37-47); Hemoglobin 12.7 g/dL (12.0-16.0); Immature Granulocytes # (auto) 0.02 K/uL (0.00-0.02); Immature Granulocytes % (auto) 0.3 %; Lymphocytes # (auto) 0.91 K/uL (1.2-3.4); Mean Corpuscular Hgb Conc 32.1 g/dL (32-36); Mean Corpuscular Volume 84.3 fL (80-100); Mean Platelet Volume 9.2 fL (7.4-10.4); Monocytes # (auto) 0.53 K/uL (0.11-0.59); Monocytes % (auto) 8.7 %; Neutrophils % (auto) 74.1 %; Platelet Count 264 K/uL (130-400); RDW Coefficient of Variation 15.8 % (11.5-14.5); White Blood Count 6.08 K/uL (4.8-10.8)
[2019-12-01 08:31] LABS: INR 1.1 (0.9-1.1); Partial Thromboplastin Time 26.8 Seconds (21.0-31.0); Prothrombin Time 11.9 Seconds (9.0-12.0)
[2019-12-01 08:32] LABS: Appearance Urine Clear (Clear); Bacteria Urine Automated Negative (Negative); Bilirubin Urine Negative (Negative); Blood Urine Negative (Negative); Cast Urine Automated 0 /lpf (0-5); Color Urine Yellow; Epithelial Cell Urine Auto >30 /lpf (0-5); Glucose Urine UA Negative (Negative); Ketones Urine Negative (Negative); Leukocyte Esterase Urine 1+ (Negative); Nitrite Urine Negative (Negative); Protein Urine Negative (Negative); RBC Urine Automated 0-4 /hpf (0-4); Specific Gravity Urine 1.006 (1.000-1.030); Urobilinogen Urine Negative (Negative)
[2019-12-01 08:37] LABS: Alanine Aminotransferase 23 U/L (12-78); Albumin Level 2.8 gm/dl (3.4-5.0); Aspartate Aminotransferase 26 U/L (15-37); BUN Creatinine Ratio 20.9 (10-20); Blood Urea Nitrogen 11 mg/dl (7-18); Calcium 9.6 mg/dl (8.5-10.1); Carbon Dioxide 31 mmol/L (21-32); Chloride 101 mmol/L (98-107); Est GFR (African American) 115.6; Est GFR (Non-African American) 99.7; Glucose 91 mg/dl (70-99); Potassium 3.7 mmol/L (3.5-5.1); Sodium 138 mmol/L (136-145)
[2019-12-01 08:42] LABS: Albumin Globulin Ratio 0.7 (0.9-2); Alkaline Phosphatase 87 U/L (45-117); Bilirubin,Total 0.5 mg/dl (0.2-1); Total Protein 6.8 gm/dl (6.4-8.2); Troponin I < 0.015 ng/ml (0-0.045)
--- NOTE | 2019-12-01 08:49 | XRay Report ---
XR chest 1V portable CLINICAL HISTORY: Dyspnea COMPARISON STUDY: 04/17/2019 FINDINGS: The heart is normal in size. There is a left subclavian A-Port catheter. There is diffuse e levation of interstitium, likely secondary to congestive failure although an infectious/inflammatory processes could appear similar. There is peripheral consolidation at the left lung base. While nonspe cific, a pulmonary infarct cannot be excluded. There is a suspected trace left pleural effusion. IMPRESSION: 1. Diffuse elevation of interstitium, likely secondary to congestive failure although an infectious/i nflammatory processes could appear similar 2. Nonspecific peripheral consolidation at the left lung base. A pulmonary infarct cannot be excluded 3. Suspected small left pleural effusion ACT 112: Negative or not required by law. Electronically signed by: Romulo Dalton M.D. 12/01/2019 8:48 AM
[2019-12-01] MEDS ORDERED: ONDANSETRON INJ 2 MG/ML 2 ML VIAL IV STA (09:13)
[2019-12-01] MEDS ORDERED: OPTIRAY 320 125ml IV ONE (09:40)
--- NOTE | 2019-12-01 09:52 | CT Scan Report ---
CT ANGIOGRAM OF THE CHEST CLINICAL HISTORY: Increasing shortness of breath. History of breast carcinoma. Evaluate for pulmonary embolism. Cough. COMPARISON STUDY: 02/25/2019 TECHNIQUE: Following the IV administration of 120 mL of Optiray-320, CT angiogram of the thorax was p erformed from the thoracic inlet to the lung bases utilizing the pulmonary embolus protocol. Images a re reviewed in the axial, sagittal, and coronal planes. IV contrast was administered without complica tion. MIP imaging was performed. A dose lowering technique was utilized adhering to the principles o f ALARA. CT DOSE: 357.16 mGy.cm FINDINGS: There is a stable 1 cm right hepatic lobe hypodensity. There is stable mild adrenal gland thickening There are enlarged hilar and mediastinal lymph nodes, a finding not present on the prior study. There are borderline enlarged left axillary lymph nodes. There was no evidence of thoracic aortic dilatation. There are no pulmonary artery filling defects to indicate acute pulmonary embolism. There are bilateral pleural effusions right greater than left. There is bronchial wall thickening. There is nodular septal edema. Given the adenopathy, lymphangitic carcinomatosis must be considered. There are basilar airspace opacities, likely representing atelect asis. There is scattered subcentimeter pulmonary nodules. There is moderate right breast edema. IMPRESSION: 1. No evidence of acute pulmonary embolism 2. Interval development of pathologic mediastinal and hilar lymphadenopathy 3. Interval development of bilateral pleural effusions right greater than left 4. Interlobular septal edema, lymphangitic carcinomatosis versus cardiogenic pulmonary edema 5. Lower lobe bronchial wall thickening 6. Scattered subcentimeter pulmonary nodules 7. Bibasilar consolidation, atelectasis favored over pneumonia ACT 112: Negative or not required by law. Electronically signed by: Romulo Dalton M.D. 12/01/2019 9:51 AM
--- NOTE | 2019-12-01 09:55 | Electrocardiogram Report ---
Test Reason : Blood Pressure : / mmHG Vent. Rate : 075 BPM Atrial Rate : 075 BPM P-R Int : 108 ms QRS Dur : 080 ms QT Int : 420 ms P-R-T Axes : 036 051 034 degrees QTc Int : 469 ms Poor data quality, interpretation may be adversely affected Sinus rhythm When compared with ECG of 20-APR-2019 18:01, Nonspecific T wave abnormality now evident in Anterior leads Confirmed by Randy Elise ([id number]) on 12/01/2019 9:55:20 AM Referred By: REFERRED SELF Confirmed By:Dayne Elise
[2019-12-01] MEDS ORDERED: ZOLPIDEM TARTRATE 5 MG TAB PO PRN (11:02)
[2019-12-01] MEDS ORDERED: ONDANSETRON INJ 2 MG/ML 2 ML VIAL IV PRN (11:02)
[2019-12-01] MEDS ORDERED: ALUMINUM/MAGNESIUM SUSP 30 ML UDC PO PRN (11:02)
[2019-12-01] MEDS ORDERED: ACETAMINOPHEN 325 MG TAB PO PRN (11:02)
[2019-12-01] MEDS ORDERED: MAGNESIUM HYDROXIDE SUSP 30 ML UDC PO PRN (11:02)
--- NOTE | 2019-12-01 11:10 | History & Physical Report ---
Date of Service December 01, 2019 Assessment & Plan (1) COPD with acute exacerbation: presented with SOB , progressive over past few weeks hx of COPD , not on home 02 symptoms improve with IV solumedrol , neb tx cont to monitor empiric IV rocephin , Zithromax for underlying community acquired pneumonia vs bronchitis (2) Acute respiratory failure with hypoxia: due to above resp status improve after IV steroids /nebx wean down 02 as tolerated , keep spo2 88-92% CT chest negative for PE bilateral pleural effusion , high likelihood of malignant effusion given metastatic breast CA 2 step exercise prior to discharge 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 , 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 Non healing wound on right chest wall area/post mastectomy -wound care consulted check wound culture Code status : Full code , discussed with pt DVT PPX : sub q lovenox History of Present Illness Chief Complaint: shortness of breath Primary Care Provider: Corona Brice DO This is a 64 yo F with hx of metastatic breast Ca , mets to bone on radiation tx , COPD , presented with worsening of SOB has been having symptoms of feeling difficulty breathing , cough , MOURA for past few weeks , got worse in last few days no recent sick contact in ER pt was found to be hypoxic in RA 87% improved pulse ox with 4 L 02 supplement was given neb tx CT chest ; no evidence of PE /bilateral atelectasis vs infection process respiratory status improved after neb tx , IV steroids admitted to medical tele for further care Allergies Allergy/AdvReac Type Severity Reaction Status Date / Time No Known Drug Allergies Allergy Unknown Verified 12/01/19 08:59 mineral oil [From Aquaphor] AdvReac Mild c/o Verified 12/01/19 08:59 increased itching with application of same petrolatum,hydrophilic AdvReac Mild c/o Verified 12/01/19 08:59 [From Aquaphor] increased itching with application of same Home Medications Home Medications Medication Instructions Recorded Confirmed Type lorazepam [Ativan] 0.5 mg PO AMHS 06/14/18 12/01/19 History potassium chloride 20 meq PO BID 06/14/18 12/01/19 History simvastatin [Zocor] 10 mg PO HS 06/14/18 12/01/19 History sulfasalazine 500 mg PO BID 06/14/18 12/01/19 History folic acid 1 mg tablet 1 mg PO QAM #30 tab 09/19/18 12/01/19 History ondansetron HCl 4 mg tablet 4 mg PO Q4 PRN tab 09/19/18 12/01/19 History celecoxib [Celebrex] 200 mg PO QAM 02/25/19 12/01/19 History prednisone 5 mg PO QAM 04/17/19 12/01/19 History albuterol sulfate 90 mcg/actuation 1 puffs INH Q6H PRN #1 ea 10/01/19 12/01/19 Rx breath activated powder inhaler amlodipine 10 mg tablet 10 mg PO QAM 10/28/19 12/01/19 History losartan 50 mg tablet 50 mg PO QAM 10/28/19 12/01/19 History oxycodone 5 mg capsule 5 mg PO Q6H PRN 10/28/19 12/01/19 History metronidazole 1 % topical gel 1 applic TOPICAL DAILY #60 g 11/06/19 12/01/19 Rx Past Med/Surg History Medical History Acute hypoxemic respiratory failure Adenocarcinoma of uterus Arthritis Breast cancer, right COPD (chronic obstructive pulmonary disease) MOURA (dyspnea on exertion) Dyslipidemia Elevated troponin History of chemotherapy HTN (hypertension) Hypokalemia Hypoxia Influenza A Influenza B Nicotine dependence Paroxysmal atrial fibrillation Rheumatoid arthritis 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) Tachycardia Surgical History History of knee replacement History of tonsillectomy and adenoidectomy Lipoma of neck Family History Unknown Diabetes Other Hypertension Rheumatoid arthritis Social History Smoking Status: Light tobacco smoker Tobacco Type: Cigarettes Second Hand Exposure: No; Do You Dip or Chew Tobacco: No; Tobacco Cessation Education Requested by Patient: No Hx Alcohol Use: No Hx Substance Use: No Preferred Language: Salvadorean Communication Ability: Effective Travel Sales Consultant Required: No Beliefs That Will Affect Care: None marital status: Current Living Situation: Spouse Current Living Situation Comment: , two grandchildren current occupational status: disabled current occupation: retired How many Children do You have: 2 How many Children do You have Comment: alive & well. Other Information That Helps Us Care for You: No Feels Safe at Home: Yes Safety Concerns: Feels Safe At This Time Childhood Exposure to Second-Hand Smoke: Yes Dental Care, Regularly: No Assistive Devices: Cane and Walker Review of Systems Review of Systems: All systems reviewed & are unremarkable except as noted in HPI & below Physical Exam Constitutional: WD/WN, vitals as above + ill appearing; no acute distress Eyes: + anicteric sclerae ENMT: external ear and nose normal, oropharynx normal Respiratory: no respiratory distress Auscultation: + diminished lung sounds and + wheezes; no rales Cardiovascular: Rate/Rhythm: regular rate and regular rhythm Extremities: + pedal edema Gastrointestinal (Abdomen): Percussion/Palpation: + abdomen tender; + abdomen not soft Musculoskeletal: right chest wall s/p mastectomy with non healing wound , bandage present Neurologic: PERRL, EOMI, accommodation nl, no face palsy, no dysarthria Psychiatric: A+Ox3, euthymic affect Results & Data Results & Data ([facility]) Vital Signs (Past 12 Hours) Vital Signs Temp Pulse Pulse Resp BP Pulse Ox 12/01/19 10:00 73 20 126/76 91 12/01/19 09:00 76 33 H 92 12/01/19 08:34 75 16 92 12/01/19 08:30 75 23 151/80 H 93 12/01/19 08:04 92 12/01/19 08:01 77 30 H 94 12/01/19 07:45 87 L 12/01/19 07:41 36.8 C 81 20 167/[address] Chest with contrast : IMPRESSION: 1. No evidence of acute pulmonary embolism 2. Interval development of pathologic mediastinal and hilar lymphadenopathy 3. Interval development of bilateral pleural effusions right greater than left 4. Interlobular septal edema, lymphangitic carcinomatosis versus cardiogenic pulmonary edema 5. Lower lobe bronchial wall thickening 6. Scattered subcentimeter pulmonary nodules 7. Bibasilar consolidation, atelectasis favored over pneumonia Code Status & VTE Plan VTE Prophylaxis Plan VTE Prophylaxis will be ordered: Yes
[2019-12-01] MEDS ORDERED: ALBUTEROL HFA 8 GM INHALER INH PRN (12:47)
[2019-12-01] MEDS: ALBUT/IPRATROP 3MG/0.5MG NEB 3 ML VIAL NEB SCH ×3 (15:16→22:46)
[2019-12-01] MEDS: methylPREDNISolone 40 MG in SYRINGE 0 ML IV SCH ×2 (17:09→23:14)
[2019-12-01] MEDS: ENOXAPARIN INJ 40 MG/0.4 ML SYR SQ SCH (17:09)
[2019-12-01 20:22] LABS: Adenovirus PCR Not Detected (NotDetected); Bordetella parapertussis PCR Not Detected (NotDetected); Bordetella pertussis PCR Not Detected (NotDetected); Chlamydia pneumoniae PCR Not Detected (NotDetected); Coronavirus 229E PCR Not Detected (NotDetected); Coronavirus CoV-2 (COVID19)PCR Not Detected (NotDetected); Coronavirus HKU1 PCR Not Detected (NotDetected); Coronavirus NL63 PCR Not Detected (NotDetected); Coronavirus OC43PCR Not Detected (NotDetected); Human Metapneumovirus PCR Not Detected (NotDetected); Influenza A PCR Not Detected (NotDetected); Influenza B PCR Not Detected (NotDetected); Mycoplasma pneumoniae PCR Not Detected (NotDetected); Parainfluenza Virus 1 PCR Not Detected (NotDetected); Parainfluenza Virus 2 PCR Not Detected (NotDetected); Parainfluenza Virus 3 PCR Not Detected (NotDetected); Parainfluenza Virus 4 PCR Not Detected (NotDetected); Respiratory Syncytial VirusPCR Not Detected (NotDetected); Rhinovirus/Enterovirus PCR Not Detected (NotDetected)
[2019-12-01] MEDS: LORazepam 0.5 MG TAB PO SCH (21:02)
[2019-12-01] MEDS: POTASSIUM CHLORIDE 20 MEQ TABCR PO SCH (21:02)
[2019-12-01] MEDS: sulfaSALAzine 500 MG TABLET PO SCH (21:03)
[2019-12-01] MEDS: SIMVASTATIN 10 MG TAB PO SCH (21:03)
[2019-12-01] MEDS: SOTALOL HCL 80 MG TAB PO SCH (23:12)
[2019-12-02] MEDS: ALBUT/IPRATROP 3MG/0.5MG NEB 3 ML VIAL NEB SCH ×4 (03:07→15:19)
[2019-12-02] MEDS ORDERED: AZITHROMYCIN 250 MG TAB PO SCH (09:00)
[2019-12-02] MEDS ORDERED: cefTRIAXone SODIUM 1,000 MG in DEXTROSE 5% 50 ML IV SCH (09:00)
[2019-12-02] MEDS: oxyCODONE HCL IR 5 MG TAB (IMMEDIATE RELEASE) PO PRN (09:13)
[2019-12-02] MEDS: SOTALOL HCL 80 MG TAB PO SCH ×2 (09:14→20:52)
[2019-12-02] MEDS: methylPREDNISolone 40 MG in SYRINGE 0 ML IV SCH ×2 (09:14→15:57)
[2019-12-02] MEDS: LORazepam 0.5 MG TAB PO SCH (09:14)
[2019-12-02] MEDS: sulfaSALAzine 500 MG TABLET PO SCH ×2 (09:15→20:20)
[2019-12-02] MEDS: LOSARTAN POTASSIUM 50 MG TAB PO SCH (09:15)
[2019-12-02] MEDS: FOLIC ACID 1 MG TAB PO SCH (09:16)
[2019-12-02] MEDS: amLODIPine BESYLATE 5 MG TAB PO SCH (09:16)
[2019-12-02] MEDS: POTASSIUM CHLORIDE 20 MEQ TABCR PO SCH ×2 (09:17→20:20)
[2019-12-02] MEDS ORDERED: DOCUSATE SODIUM 100 MG CAP PO PRN (09:46)
[2019-12-02] MEDS: POLYETHYLENE (MIRALAX) 17 GM PACK PO SCH (09:55)
[2019-12-02 10:00] LABS: Hematocrit (blood only) 37.9 % (37-47); Mean Corpuscular Hemoglobin 26.9 pg (25-34); Mean Corpuscular Hgb Conc 31.7 g/dL (32-36); Mean Platelet Volume 9.3 fL (7.4-10.4); Platelet Count 284 K/uL (130-400); RDW Coefficient of Variation 15.9 % (11.5-14.5); RDW Standard Deviation 48.7 fL (36.4-46.3); Red Blood Count 4.46 M/uL (4.2-5.4); White Blood Count 5.45 K/uL (4.8-10.8)
[2019-12-02] MEDS: HEPARIN 100 UNIT/ML 5ML FLUSH FLUSH PRN ×2 (10:37→15:58)
[2019-12-02] MEDS: ENOXAPARIN INJ 40 MG/0.4 ML SYR SQ SCH (15:57)
--- NOTE | 2019-12-02 17:34 | Hospitalist Progress Note ---
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 , 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 can resume radiation tx tomorrow Non healing wound on right chest wall area/post mastectomy -wound care consulted check wound culture Code status : Full code , discussed with pt DVT PPX : sub q lovenox DISPOSITION : plan to dc home tomorrow Admission and Anticipated Discharge Date Admission Date: December 01, 2019 Subjective no complain of Shortness of breath today feels much better still requiring supplemental 02 ( will need 2 step exercise in AM ) no fever or chills no cough appetite has improved Review of Systems Review of Systems: All systems reviewed & are unremarkable except as noted in HPI & below Physical Exam Constitutional: WD/WN, vitals as above no acute distress ENMT: external ear and nose normal, oropharynx normal Respiratory: no respiratory distress Cardiovascular: Rate/Rhythm: regular rate and regular rhythm Neurologic: PERRL, EOMI, accommodation nl, no face palsy, no dysarthria Psychiatric: A+Ox3, euthymic affect Results & Data Results & Data ([facility]) Vital Signs (Past 12 Hours) Vital Signs Temp Pulse Pulse Resp BP Pulse Ox 12/02/19 15:19 62 18 95 12/02/19 15:14 64 12/02/19 11:09 67 18 94 12/02/19 11:07 36.5 C 62 16 127/86 94 12/02/19 07:20 57 L 18 93 12/02/19 07:19 56 L 12/02/19 07:13 36.6 C 60 16 146/87 H 94
[2019-12-02] MEDS ORDERED: ALBUT/IPRATROP 3MG/0.5MG NEB 3 ML VIAL NEB PRN (18:07)
[2019-12-02] MEDS: DOXYCYCLINE HYCLATE 100 MG CAP PO SCH (20:21)
[2019-12-02] MEDS: MIRTAZAPINE TAB 15 MG TAB PO SCH (20:21)
[2019-12-02] MEDS: SIMVASTATIN 10 MG TAB PO SCH (20:21)
[2019-12-03] MEDS: HEPARIN 100 UNIT/ML 5ML FLUSH FLUSH PRN (07:44)
[2019-12-03] MEDS: DOXYCYCLINE HYCLATE 100 MG CAP PO SCH (08:25)
[2019-12-03] MEDS: amLODIPine BESYLATE 5 MG TAB PO SCH (08:25)
[2019-12-03] MEDS: sulfaSALAzine 500 MG TABLET PO SCH ×2 (08:25→21:00)
[2019-12-03] MEDS: FOLIC ACID 1 MG TAB PO SCH (08:26)
[2019-12-03] MEDS: LOSARTAN POTASSIUM 50 MG TAB PO SCH (08:26)
[2019-12-03] MEDS: SOTALOL HCL 80 MG TAB PO SCH ×2 (08:27→20:59)
[2019-12-03] MEDS: POTASSIUM CHLORIDE 20 MEQ TABCR PO SCH ×2 (08:27→20:58)
[2019-12-03] MEDS: POLYETHYLENE (MIRALAX) 17 GM PACK PO SCH (08:27)
[2019-12-03] MEDS: LORazepam 1 MG TAB PO PRN (08:30)
[2019-12-03] MEDS ORDERED: predniSONE 20 MG TAB PO SCH (09:00)
[2019-12-03] MEDS ORDERED: PIPERACILL/TAZOBAC CONSULT ACTIVE PRN (12:00)
[2019-12-03] MEDS ORDERED: guaiFENesin/DEXTROM SYRUP 200MG/20MG 10ML UDC PO PRN (12:00)
[2019-12-03] MEDS ORDERED: PIPERACILLIN/TAZOBACTAM 3.375 GM in DEXTROSE 5% 100 ML IV ONE (12:15)
[2019-12-03] MEDS: guaiFENesin 600 MG TABCR PO SCH ×2 (12:47→20:58)
[2019-12-03] MEDS: ENOXAPARIN INJ 40 MG/0.4 ML SYR SQ SCH (15:36)
[2019-12-03] MEDS: PIPERACILLIN/TAZOBACTAM 3.375 GM in DEXTROSE 5% 100 ML IV SCH (17:30)
--- NOTE | 2019-12-03 18:29 | Hospitalist Progress Note ---
Date of Service December 03, 2019 Assessment & Plan (1) COPD with acute exacerbation: symptoms has resolved no cough or SOB , no wheeze presented with SOB , progressive over past few weeks CT chest negative for PE developed worsening of cough with productive sputum today changed abx to IV ordered for sputum culture , hold sc home today (2) Acute respiratory failure with hypoxia: resolved on 3 L 02 via nasal canula ( not on home 02) CT chest negative for PE bilateral pleural effusion , high likelihood of malignant effusion given metastatic breast CA 2 step exercise shows -need 2 L 02 on exertion script given to case management for home 02 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 , lungs pt follows with Dr Rios locally and with [facility] currently on radiation tx can resume radiation tx /rad oncology updated Non healing wound on right chest wall area/post mastectomy follows with wound clinic Wound care Code status : Full code , discussed with pt DVT PPX : sub q lovenox DISPOSITION : discharge home when medically stable pt will need home 02 -script given and home health through [facility] Daughter updated at bedside Admission and Anticipated Discharge Date Admission Date: December 01, 2019 Subjective pt is having more cough today with yellowish productive sputum no fever or chills Review of Systems Review of Systems: All systems reviewed & are unremarkable except as noted in HPI & below Physical Exam Constitutional: WD/WN, vitals as above no acute distress Eyes: + anicteric sclerae ENMT: external ear and nose normal, oropharynx normal Respiratory: no respiratory distress Auscultation: + diminished lung sounds and + wheezes; no rales Cardiovascular: Rate/Rhythm: regular rate and regular rhythm Extremities: + pedal edema Gastrointestinal (Abdomen): Percussion/Palpation: + abdomen tender; + abdomen not soft Neurologic: PERRL, EOMI, accommodation nl, no face palsy, no dysarthria Psychiatric: A+Ox3, euthymic affect Results & Data Results & Data ([facility]) Vital Signs (Past 12 Hours) Vital Signs Temp Pulse Pulse Pulse Pulse Pulse Pulse 12/03/19 15:14 36.7 C 73 12/03/19 15:13 66 12/03/19 11:35 36.4 C L 62 12/03/19 08:48 36.9 C 67 12/03/19 08:00 82 77 62 60 12/03/19 07:26 55 L Resp Resp Resp Resp Resp BP Pulse Ox 12/03/19 15:14 20 105/61 90 12/03/19 15:13 12/03/19 11:35 18 155/91 H 89 L 12/03/19 08:48 20 160/83 H 91 12/03/19 08:00 22 23 18 19 12/03/19 07:26 Pulse Ox Pulse Ox Pulse Ox Pulse Ox 12/03/19 15:14 12/03/19 15:13 12/03/19 11:35 12/03/19 08:48 12/03/19 08:00 90 86 L 91 90 12/03/19 07:26
--- NOTE | 2019-12-03 20:55 | Wound Consultation ---
Date of Consultation December 03, 2019 Assessment & Plan (1) Breast cancer, right: 60 year old female with right breast cancer with metastasis to bone and radiation injury. No debridement was needed. Wound will be dressed with xeroform on breast, caredress to the axilla. Will get her a surgical bra. Will see in office as scheduled. Thank you for the consult. Please call with any questions. History of Present Illness Reason for Consultation: Right breast cancer Attending Physician: Vi Manley MD History of Present Illness This is a 64 year old female with history of COPD, hypertension, dyslipidemia, rheumatoid arthritis and metastatic breast cancer who is admitted with COPD exacerbation. Patient has metastatic breast cancer with mets to bone. She is currently undergoing radiation treatment. She is following at [facility] and with Dr. Rios locally. The mass is necrotic and patient has radiation injury to to breast and axilla. I am being consulted for this. Allergies Allergy/AdvReac Type Severity Reaction Status Date / Time No Known Drug Allergies Allergy Unknown Verified 12/01/19 08:59 mineral oil [From Aquaphor] AdvReac Mild c/o Verified 12/01/19 08:59 increased itching with application of same petrolatum,hydrophilic AdvReac Mild c/o Verified 12/01/19 08:59 [From Aquaphor] increased itching with application of same Home Medications Home Medications Medication Instructions Recorded Confirmed Type lorazepam [Ativan] 0.5 mg PO AMHS 06/14/18 12/01/19 History potassium chloride 20 meq PO BID 06/14/18 12/01/19 History simvastatin [Zocor] 10 mg PO HS 06/14/18 12/01/19 History sulfasalazine 500 mg PO BID 06/14/18 12/01/19 History folic acid 1 mg tablet 1 mg PO QAM #30 tab 09/19/18 12/01/19 History ondansetron HCl 4 mg tablet 4 mg PO Q4 PRN tab 09/19/18 12/01/19 History celecoxib [Celebrex] 200 mg PO QAM 02/25/19 12/01/19 History prednisone 5 mg PO QAM 04/17/19 12/01/19 History albuterol sulfate 90 mcg/actuation 1 puffs INH Q6H PRN #1 ea 10/01/19 12/01/19 Rx breath activated powder inhaler amlodipine 10 mg tablet 10 mg PO QAM 10/28/19 12/01/19 History losartan 50 mg tablet 50 mg PO QAM 10/28/19 12/01/19 History oxycodone 5 mg capsule 5 mg PO Q6H PRN 10/28/19 12/01/19 History metronidazole 1 % topical gel 1 applic TOPICAL DAILY #60 g 11/06/19 12/01/19 Rx doxycycline hyclate 100 mg PO BID 5 Days #10 cap 12/02/19 Rx lorazepam 1 mg PO TID PRN #90 tab 12/02/19 Rx mirtazapine 15 mg PO HS 30 Days #30 tab 12/02/19 Rx sotalol 40 mg PO BID 30 Days #30 tab 12/02/19 Rx Patient History Medical History Acute hypoxemic respiratory failure Adenocarcinoma of uterus Arthritis Breast cancer, right COPD (chronic obstructive pulmonary disease) MOURA (dyspnea on exertion) Dyslipidemia Elevated troponin History of chemotherapy HTN (hypertension) Hypokalemia Hypoxia Influenza A Influenza B Nicotine dependence Paroxysmal atrial fibrillation Rheumatoid arthritis 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) Tachycardia Surgical History History of knee replacement History of tonsillectomy and adenoidectomy Lipoma of neck Family History Unknown Diabetes Other Hypertension Rheumatoid arthritis Social History Smoking Status: Light tobacco smoker Tobacco Type: Cigarettes Second Hand Exposure: No; Do You Dip or Chew Tobacco: No; Tobacco Cessation Education Requested by Patient: No Hx Alcohol Use: No Hx Substance Use: No Preferred Language: Gabonese Communication Ability: Effective Renal Case Manager Required: No Beliefs That Will Affect Care: None marital status: Current Living Situation: Spouse Current Living Situation Comment: , two grandchildren current occupational status: disabled current occupation: retired How many Children do You have: 2 How many Children do You have Comment: alive & well. Other Information That Helps Us Care for You: No Feels Safe at Home: Yes Safety Concerns: Feels Safe At This Time Childhood Exposure to Second-Hand Smoke: Yes Dental Care, Regularly: No Assistive Devices: Glasses Review of Systems Review of Systems: All systems reviewed & are unremarkable except as noted in HPI & below Physical Exam Physical Exam: Temp Pulse Resp BP Pulse Ox 36.5 C 64 18 160/95 H 92 12/03/19 19:27 12/03/19 19:27 12/03/19 19:27 12/03/19 19:27 12/03/19 19:27 Constitutional: WD/WN, vitals as above Eyes: PERRL, conjunctivae normal, anicteric sclerae ENMT: external ear and nose normal, oropharynx normal Skin: Wound measuring as recorded in nursing documentation. Wound is necrotic with slough on bottom of the breast. Axilla with radiation injury Neurologic: awake; not confused Psychiatric: A+Ox3, euthymic affect Results & Data ([facility]) Vital Signs (Past 12 Hours) Vital Signs Temp Pulse Pulse Resp BP Pulse Ox 12/03/19 19:27 36.5 C 64 18 160/95 H 92 12/03/19 19:24 66 12/03/19 15:14 36.7 C 73 20 105/61 90 12/03/19 15:13 66 12/03/19 11:35 36.4 C L 62 18 155/91 H 89 L 12/03/19 08:48 36.9 C 67 20 160/83 H 91 PG Care Time/CCT Total # of Minutes Spent Total Time Spent with Patient: Total time spent is greater than 50% in coordination of care (as documented) at patient's floor/unit and/or counseling patient: Coding Level of Care Code 23279 Inpt Consult Level 3 Diagnoses Breast cancer, right C50.911
[2019-12-03] MEDS: MIRTAZAPINE TAB 15 MG TAB PO SCH (20:57)
[2019-12-03] MEDS: SIMVASTATIN 10 MG TAB PO SCH (20:58)
[2019-12-04] MEDS: LORazepam 1 MG TAB PO PRN ×3 (02:15→16:06)
[2019-12-04] MEDS: PIPERACILLIN/TAZOBACTAM 3.375 GM in DEXTROSE 5% 100 ML IV SCH ×3 (02:16→19:06)
[2019-12-04] MEDS ORDERED: hydrALAZINE HCL 20 MG/ML VIAL IV ONE (05:18)
[2019-12-04] MEDS: sulfaSALAzine 500 MG TABLET PO SCH ×2 (07:49→20:39)
[2019-12-04] MEDS: LOSARTAN POTASSIUM 50 MG TAB PO SCH (07:49)
[2019-12-04] MEDS: FOLIC ACID 1 MG TAB PO SCH (07:49)
[2019-12-04] MEDS: amLODIPine BESYLATE 5 MG TAB PO SCH (07:49)
[2019-12-04] MEDS: POTASSIUM CHLORIDE 20 MEQ TABCR PO SCH ×2 (07:51→20:39)
[2019-12-04] MEDS: guaiFENesin 600 MG TABCR PO SCH ×2 (07:52→20:40)
[2019-12-04] MEDS: SOTALOL HCL 80 MG TAB PO SCH ×2 (07:52→20:40)
[2019-12-04] MEDS: POLYETHYLENE (MIRALAX) 17 GM PACK PO SCH (10:30)
[2019-12-04] MEDS: ENOXAPARIN INJ 40 MG/0.4 ML SYR SQ SCH (16:04)
--- NOTE | 2019-12-04 20:03 | Hospitalist Progress Note ---
Date of Service December 04, 2019 Assessment & Plan (1) COPD with acute exacerbation: symptoms has resolved no cough or SOB , no wheeze presented with SOB , progressive over past few weeks CT chest negative for PE developed worsening of cough with productive sputum today changed abx to IV ordered for sputum culture , hold sc home today (2) Acute respiratory failure with hypoxia: Present on admission with SOB associated with productive cough CTA chest showed: 1. no evidence of acute pulmonary embolism 2. Interval development of pathologic mediastinal and hilar lymphadenopathy 3. Interval development of bilateral pleural effusions right greater than left 4. Interlobular septal edema, lymphangitic carcinomatosis versus cardiogenic pulmonary edema 2 step exercise done and pt is required oxygen supplement on exertion Continue oxygen supplement Continue guaifenesin Will change IV zosyn to Doxycycline 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 , lungs pt follows with Dr Rios locally and with [facility] currently on radiation tx can resume radiation tx /rad oncology updated Non healing wound on right chest wall area/post mastectomy follows with wound clinic Wound provider on board No debridement was needed. Wound will be dressed with xeroform on breast, caredress to the axilla. Will need a surgical bra. Code status : Full code DVT PPX : sub q lovenox DISPOSITION discharge home with home [facility] when medically stable Admission and Anticipated Discharge Date Admission Date: December 01, 2019 Subjective Pt was seen and examined Sitting in bed with no distress Pt said that she becomes SOB with exertion She said that she is very anxious Denies any chest pain, palpitation, dizziness and fever Physical Exam Physical Exam: General- No acute distress Head- atraumatic Eyes- PERRL, EOMI, ENT- oropharynx clear Neck- supple, no JVD Lungs- Diminished BS Heart- regular rhythm; no murmur Abdomen- normal bowel sounds, soft, nontender Extremities- no calf tenderness, +edema Neuro- alert, oriented x 3; PERRL, EOMI; no facial palsy; no dysarthria Skin- warm & dry Results & Data Results & Data ([facility]) Vital Signs (Past 12 Hours) Vital Signs Temp Pulse Pulse Resp BP Pulse Ox 12/04/19 19:58 36.6 C 71 22 153/90 H 94 12/04/19 17:37 74 12/04/19 15:42 36.5 C 69 20 117/63 93 12/04/19 11:56 37 C 66 20 126/83 94 12/04/19 09:29 74 122/74
[2019-12-04] MEDS: SIMVASTATIN 10 MG TAB PO SCH (20:40)
[2019-12-04] MEDS: MIRTAZAPINE TAB 15 MG TAB PO SCH (20:41)
[2019-12-05] MEDS: PIPERACILLIN/TAZOBACTAM 3.375 GM in DEXTROSE 5% 100 ML IV SCH ×3 (01:26→19:21)
[2019-12-05] MEDS: LORazepam 1 MG TAB PO PRN ×2 (05:14→15:33)
[2019-12-05 07:16] LABS: Creatinine Clr Calc Pharmacy 112.1 ml/min; Est GFR (African American) 115.6; Est GFR (Non-African American) 99.7
[2019-12-05] MEDS: FOLIC ACID 1 MG TAB PO SCH (08:24)
[2019-12-05] MEDS: SOTALOL HCL 80 MG TAB PO SCH ×2 (08:24→20:27)
[2019-12-05] MEDS: LOSARTAN POTASSIUM 50 MG TAB PO SCH (08:25)
[2019-12-05] MEDS: sulfaSALAzine 500 MG TABLET PO SCH ×2 (08:25→20:29)
[2019-12-05] MEDS: POTASSIUM CHLORIDE 20 MEQ TABCR PO SCH ×2 (08:25→20:26)
[2019-12-05] MEDS: amLODIPine BESYLATE 5 MG TAB PO SCH (08:25)
[2019-12-05] MEDS: guaiFENesin 600 MG TABCR PO SCH ×2 (08:25→20:27)
[2019-12-05] MEDS: POLYETHYLENE (MIRALAX) 17 GM PACK PO SCH (08:26)
[2019-12-05] MEDS: oxyCODONE HCL IR 5 MG TAB (IMMEDIATE RELEASE) PO PRN (11:29)
--- NOTE | 2019-12-05 15:19 | Hospitalist Progress Note ---
Date of Service December 05, 2019 Assessment & Plan (1) COPD with acute exacerbation: (2) Acute respiratory failure with hypoxia: Present on admission with SOB associated with productive cough CTA chest showed: 1. no evidence of acute pulmonary embolism 2. Interval development of pathologic mediastinal and hilar lymphadenopathy 3. Interval development of bilateral pleural effusions right greater than left 4. Interlobular septal edema, lymphangitic carcinomatosis versus cardiogenic pulmonary edema 2 step exercise done and pt is required oxygen supplement on exertion Continue oxygen supplement with 2L oxygen at rest and 3-4L with exertion Received 5 days course of abx Continue guaifenesin 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 , lungs pt follows with Dr Rios locally and with [facility] currently on radiation tx can resume radiation tx /rad oncology updated Non healing wound on right chest wall area/post mastectomy follows with wound clinic Wound provider on board No debridement was needed. Wound will be dressed with xeroform on breast, caredress to the axilla. Will need a surgical bra. Wound culture positive for MRSA and gram negative bacilli (Non viable for sensitivity) Code status : Full code DVT PPX : sub q lovenox DISPOSITION Will discharge home today Admission and Anticipated Discharge Date Admission Date: December 01, 2019 Subjective Pt was seen and examined Sitting in bed with no distress Pt said that she feels a little better She said that she seems to require more oxygen with activities Denies any chest pain, palpitation, SOB, fever Physical Exam Physical Exam: General- No acute distress Head- atraumatic Eyes- PERRL, EOMI, ENT- oropharynx clear Neck- supple, no JVD Lungs- Diminished BS Heart- regular rhythm; no murmur Abdomen- normal bowel sounds, soft, nontender Extremities- no calf tenderness, +edema Neuro- alert, oriented x 3; PERRL, EOMI; no facial palsy; no dysarthria Skin- warm & dry Results & Data Results & Data ([facility]) Vital Signs (Past 12 Hours) Vital Signs Temp Pulse Pulse Resp BP Pulse Ox 12/05/19 14:44 36.7 C 75 18 137/87 93 12/05/19 11:21 36.7 C 75 18 137/87 93 12/05/19 07:34 36.6 C 73 20 146/87 H 91 12/05/19 07:05 67
[2019-12-05] MEDS ORDERED: predniSONE 20 MG TAB PO STA (15:27)
[2019-12-05] MEDS: ENOXAPARIN INJ 40 MG/0.4 ML SYR SQ SCH (15:36)
[2019-12-05] MEDS ORDERED: IOVERSOL 100ml IV ONE (19:00)
--- NOTE | 2019-12-05 19:19 | CT Scan Report ---
CT head/brain wo/w con CLINICAL HISTORY: Confusion. Breast cancer. COMPARISON STUDY: No previous studies for comparison. TECHNIQUE: Axial images of the head were obtained before and after intravenous administration of 84 c c of Optiray 320 IV. Automated exposure control was utilized for the study. A dose lowering techniqu e was utilized adhering to the principles of ALARA. FINDINGS: No acute intracranial hemorrhage, midline shift or mass effect is present. Ventricular syst em is normal. Basilar cisterns are patent. There are no extra axial collections. [place]-white different iation is maintained. There are no findings to suggest acute dural sinus thrombosis or acute territor ial infarct. No intracranial mass or pathologic enhancement is identified. Asymmetric atrophy of the left upper neck muscles is partially imaged. Lucencies within the bilateral temporal bones are noted. IMPRESSION: 1. No acute intracranial findings. 2. No intracranial metastases identified. 3. Numerous lucencies within the bilateral temporal bones. These are indeterminate. ACT 112: Negative or not required by law. Electronically signed by: Daniel Roman M.D. 12/05/2019 7:18 PM
[2019-12-05] MEDS: MIRTAZAPINE TAB 15 MG TAB PO SCH ×2 (20:28→23:02)
[2019-12-05] MEDS: SIMVASTATIN 10 MG TAB PO SCH (20:28)
[2019-12-06] MEDS: PIPERACILLIN/TAZOBACTAM 3.375 GM in DEXTROSE 5% 100 ML IV SCH ×2 (01:51→09:51)
[2019-12-06] MEDS: LORazepam 1 MG TAB PO PRN ×2 (03:29→09:19)
[2019-12-06] MEDS: LOSARTAN POTASSIUM 50 MG TAB PO SCH (09:19)
[2019-12-06] MEDS: POLYETHYLENE (MIRALAX) 17 GM PACK PO SCH (09:19)
[2019-12-06] MEDS: guaiFENesin 600 MG TABCR PO SCH (09:19)
[2019-12-06] MEDS: FOLIC ACID 1 MG TAB PO SCH (09:19)
[2019-12-06] MEDS: amLODIPine BESYLATE 5 MG TAB PO SCH (09:19)
[2019-12-06] MEDS: POTASSIUM CHLORIDE 20 MEQ TABCR PO SCH (09:19)
[2019-12-06] MEDS: sulfaSALAzine 500 MG TABLET PO SCH (09:20)
[2019-12-06] MEDS: SOTALOL HCL 80 MG TAB PO SCH (09:50)
[2019-12-06 11:17] VITALS: PULSE 81; TEMP 97.3; O2SAT 90
[2019-12-06] MEDS ORDERED: predniSONE 10 MG TABLET PO ONE (11:38)
--- NOTE | 2019-12-06 12:08 | Hospitalist Progress Note ---
Date of Service December 06, 2019 Assessment & Plan (1) COPD with acute exacerbation: (2) Acute respiratory failure with hypoxia: Present on admission with SOB associated with productive cough CTA chest showed: 1. no evidence of acute pulmonary embolism 2. Interval development of pathologic mediastinal and hilar lymphadenopathy 3. Interval development of bilateral pleural effusions right greater than left 4. 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 Wound will be dressed with xeroform on breast, caredress to the axilla. Will need a surgical bra. Wound culture positive for MRSA and gram negative bacilli (Non viable for sensitivity) Will do Doxycycline BID x 10 days Wound care will reassess for additional abx if needed Confusion Confused and tearful yesterday when getting ready to discharge CT head with contrast showed no acute intracranial abnormality and no metastases identified. Mental status back to baseline Code status : Full code DVT PPX : sub q lovenox DISPOSITION Will discharge home today Admission and Anticipated Discharge Date Admission Date: December 01, 2019 Subjective Pt was seen and examined Lying in bed with no distress Pt said that she feels much better today Yesterday she had a spelling cried and confusion when she was getting ready to discharge Daughter was concerned and discharge was cancelled to get a CT head Denies any chest pain, palpitation, dizziness and SOB Physical Exam Physical Exam: General- No acute distress Head- atraumatic Eyes- PERRL, EOMI, ENT- oropharynx clear Neck- supple, no JVD Lungs- Diminished BS Heart- regular rhythm; no murmur Abdomen- normal bowel sounds, soft, nontender Extremities- no calf tenderness, +edema Neuro- alert, oriented x 3; PERRL, EOMI; no facial palsy; no dysarthria Skin- warm & dry Results & Data Results & Data ([facility]) Vital Signs (Past 12 Hours) Vital Signs Temp Pulse Resp BP BP Pulse Ox 12/06/19 11:13 36.3 C L 81 18 112/82 90 12/06/19 10:50 93 H 20 154/98 H 96 12/06/19 07:45 36.4 C L 72 18 121/85 93 12/06/19 04:03 36.4 C L 104 H 18 139/88 91
[2019-12-06 12:21] VITALS: BP 121/85
[2019-12-06] MEDS: HEPARIN 100 UNIT/ML 5ML FLUSH FLUSH PRN (13:36)
--- NOTE | 2019-12-11 00:36 | Discharge Summary ---
Date of Service December 06, 2019 Admission HPI Per Admitting Provider This is a 64 yo F with hx of metastatic breast Ca , mets to bone on radiation tx , COPD , presented with worsening of SOB has been having symptoms of feeling difficulty breathing , cough , MOURA for past few weeks , got worse in last few days no recent sick contact in ER pt was found to be hypoxic in RA 87% improved pulse ox with 4 L 02 supplement was given neb tx CT chest ; no evidence of PE /bilateral atelectasis vs infection process respiratory status improved after neb tx , IV steroids admitted to medical tele for further care Admission Exam Per Admitting Provider Constitutional: WD/WN, vitals as above + ill appearing; no acute distress Eyes: + anicteric sclerae ENMT: external ear and nose normal, oropharynx normal Respiratory: no respiratory distress Auscultation: + diminished lung sounds and + wheezes; no rales Cardiovascular: regular rate and regular rhythm Extremities: + pedal edema Gastrointestinal: Percussion/Palpation: + abdomen tender; + abdomen not soft Musculoskeletal: right chest wall s/p mastectomy with non healing wound , bandage present Neurologic: PERRL, EOMI, accommodation nl, no face palsy, no dysarthria Psychiatric: A+Ox3, euthymic affect Principal Diagnosis SHORTNESS OF BREATH COPD EXACERBATION METASTATIC BREAST CA Discharge Exam General- No acute distress Head- atraumatic Eyes- PERRL, EOMI, ENT- oropharynx clear Neck- supple, no JVD Lungs- Diminished BS Heart- regular rhythm; no murmur Abdomen- normal bowel sounds, soft, nontender Extremities- no calf tenderness, +edema Neuro- alert, oriented x 3; PERRL, EOMI; no facial palsy; no dysarthria Skin- warm & dry Discharge Data Allergies Allergy/AdvReac Type Severity Reaction Status Date / Time No Known Drug Allergies Allergy Unknown Verified 12/01/19 08:59 mineral oil [From Aquaphor] AdvReac Mild c/o Verified 12/01/19 08:59 increased itching with application of same petrolatum,hydrophilic AdvReac Mild c/o Verified 12/01/19 08:59 [From Aquaphor] increased itching with application of same Consultations 12/01/19 10:26 ED Decision to Admit Stat 12/02/19 17:35 Consult Case Management - Discharge Planning Routine 12/03/19 14:41 Consult Wound Care Provider Routine Ordered Studies 12/01/19 09:13 CT angio chest PE protocol Stat 12/05/19 17:43 CT head/brain wo/w con Routine CT head/brain wo/w con CLINICAL HISTORY: Confusion. Breast cancer. COMPARISON STUDY: No previous studies for comparison. TECHNIQUE: Axial images of the head were obtained before and after intravenous administration of 84 cc of Optiray 320 IV. Automated exposure control was utilized for the study. A dose lowering technique was utilized adhering to the principles of ALARA. FINDINGS: No acute intracranial hemorrhage, midline shift or mass effect is pre sent. Ventricular system is normal. Basilar cisterns are patent. There are no extra axial collections. [place]-white differentiation is maintained. There are no findings to suggest acute dural sinus thrombosis or acute territorial infarct. No intracranial mass or pathologic enhancement is identified. Asymmetric atrophy of the left upper neck muscles is partially imaged. Lucencies within the bilateral temporal bones are noted. IMPRESSION: 1. No acute intracranial findings. 2. No intracranial metastases identified. 3. Numerous lucencies within the bilateral temporal bones. These are indetermin ate. ACT 112: Negative or not required by law. Electronically signed by: Daniel Roman M.D. 12/05/2019 7:18 PM Dictated: 12/05/191910 Transcribed: 12/05/191912 CT ANGIOGRAM OF THE CHEST CLINICAL HISTORY: Increasing shortness of breath. History of breast carcinoma. Evaluate for pulmonary embolism. Cough. COMPARISON STUDY: 02/25/2019 TECHNIQUE: Following the IV administration of 120 mL of Optiray-320, CT angiogram of the thorax was performed from the thoracic inlet to the lung bases utilizing the pulmonary embolus protocol. Images are reviewed in the axial, sagittal, and coronal planes. IV contrast was administered without complication. MIP imaging was performed. A dose lowering technique was utilized adhering to the principles of ALARA. CT DOSE: 357.16 mGy.cm FINDINGS: There is a stable 1 cm right hepatic lobe hypodensity. There is stable mild adrenal gland thickening There are enlarged hilar and mediastinal lymph nodes, a finding not present on the prior study. There are borderline enlarged left axillary lymph nodes. There was no evidence of thoracic aortic dilatation. There are no pulmonary artery filling defects to indicate acute pulmonary embolism. There are bilateral pleural effusions right greater than left. There is bronchial wall thickening. There is nodular septal edema. Given the adenopathy, lymphangitic carcinomatosis must be considered. There are basilar airspace opacities, likely representing atelectasis. There is scattered subcentimeter pulmonary nodules. There is moderate right breast edema. IMPRESSION: 1. No evidence of acute pulmonary embolism 2. Interval development of pathologic mediastinal and hilar lymphadenopathy 3. Interval development of bilateral pleural effusions right greater than left 4. Interlobular septal edema, lymphangitic carcinomatosis versus cardiogenic pulmonary edema 5. Lower lobe bronchial wall thickening 6. Scattered subcentimeter pulmonary nodules 7. Bibasilar consolidation, atelectasis favored over pneumonia ACT 112: Negative or not required by law. Electronically signed by: Romulo Dalton M.D. 12/01/2019 9:51 AM Dictated: 12/01/19942 Transcribed: 12/01/19942 XR chest 1V portable CLINICAL HISTORY: Dyspnea COMPARISON STUDY: 04/17/2019 FINDINGS: The heart is normal in size. There is a left subclavian A-Port catheter. There is diffuse elevation of interstitium, likely secondary to congestive failure although an infectious/inflammatory processes could appear similar. There is peripheral consolidation at the left lung base. While nonspecific, a pulmonary infarct cannot be excluded. There is a suspected trace left pleural effusion. IMPRESSION: 1. Diffuse elevation of interstitium, likely secondary to congestive failure although an infectious/inflammatory processes could appear similar 2. Nonspecific peripheral consolidation at the left lung base. A pulmonary infarct cannot be excluded 3. Suspected small left pleural effusion ACT 112: Negative or not required by law. Electronically signed by: Romulo Dalton M.D. 12/01/2019 8:48 AM Dictated: 12/01/19845 Transcribed: 12/01/19845 Hospital Course (1) COPD with acute exacerbation: symptoms has resolved no cough or SOB , no wheeze presented with SOB , progressive over past few weeks CT chest negative for PE developed worsening of cough with productive sputum today changed abx to IV ordered for sputum culture , hold sc home today (2) Acute respiratory failure with hypoxia: Present on admission with SOB associated with productive cough CTA chest showed: 1. no evidence of acute pulmonary embolism 2. Interval development of pathologic mediastinal and hilar lymphadenopathy 3. Interval development of bilateral pleural effusions right greater than left 4. 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 Wound will be dressed with xeroform on breast, caredress to the axilla. Will need a surgical bra. Wound culture positive for MRSA and gram negative bacilli (Non viable for sensitivity) Will do Doxycycline BID x 10 days Wound care will reassess for additional abx if needed Confusion Confused and tearful yesterday when getting ready to discharge CT head with contrast showed no acute intracranial abnormality and no metastases identified. Mental status back to baseline Code status : Full code DVT PPX : sub q lovenox DISPOSITION Will discharge home today Total Time Total Time Spent Total Time Spent (In Minutes): 35 minutes Total Time Includes: Examination of the Patient, Discharge Planning, Medication Reconciliation, Communication With Other Providers and Other Discharge Plan Discharge Items Patient Disposition: Home - Home Health Services Reason For Visit: SHORTNESS OF BREATH Discharge Diagnosis: SHORTNESS OF BREATH COPD EXACERBATION METASTATIC BREAST CA Activity: Resume your previous activity Non-emergency contact: Primary Care Provider Call non-emergency contact if: you have any medication questions, your rectal temperature is above 100.4, your temperature is above 101, your wound has increased redness, your wound has increased drainage and your wound pain has increased Follow-up/Referrals: Corona Brice DO [Primary Care Provider] - (Date & Time 12/09/2019 11:20 AM Provider Poonam Corbett MD Department [facility] ) Diet: Regular Addtl Attending Provider Instructions: Follow up with your primary care provider Dr. Brice in 1 week Follow up with the wound care clinic ( Wound manufacturing scheduler said daughter would call for the appointment) Continue daily wound care Continue oxygen supplement 2-3L at rest and 3-4 L with exertion Seek medical attention if breathing worsening Complete course of antibiotic with Doxycycline Pending Studies at Discharge: No Stand-Alone Forms: [employer], Smoking Cessation Medications and DC Order Prescriptions: New polyethylene glycol 3350 [Miralax] 17 gram Powder In Packet 17 g PO DAILY 30 Days Qty: 0 RF: 0 sotalol 80 mg Tablet 40 mg PO BID 30 Days Qty: 30 RF: 0 mirtazapine 15 mg Tablet 15 mg PO HS 30 Days Qty: 30 RF: 0 lorazepam 1 mg Tablet 1 mg PO TID PRN (Reason: Anxiety) Qty: 90 RF: 0 doxycycline hyclate 100 mg tablet 100 mg PO BID 10 Days Qty: 20 RF: 0 Continued albuterol sulfate 90 mcg/actuation aerosol powdr breath activated 1 puffs INH Q6H PRN (Reason: shortness of breath or wheezing) Qty: 1 RF: 0 losartan [Cozaar] 50 mg tablet 50 mg PO QAM RF: 0 amlodipine 10 mg tablet 10 mg PO QAM RF: 0 oxycodone 5 mg capsule 5 mg PO Q6H PRN (Reason: Pain) RF: 0 metronidazole [Metrogel] 1 % gel 1 applic topical DAILY Qty: 60 RF: 3 folic acid 1 mg tablet 1 mg PO QAM Qty: 30 RF: 0 ondansetron HCl 4 mg tablet 4 mg PO Q4 PRN (Reason: Nausea) RF: 0 celecoxib [Celebrex] 200 mg Capsule 200 mg PO QAM RF: 0 prednisone 5 mg tablet 5 mg PO QAM RF: 0 sulfasalazine 500 mg Tablet 500 mg PO BID RF: 0 simvastatin [Zocor] 10 mg Tablet 10 mg PO HS RF: 0 lorazepam [Ativan] 0.5 mg Tablet 0.5 mg PO AMHS RF: 0 potassium chloride 20 mEq Tablet Extended Release 20 meq PO BID RF: 0 Discharge Orders: Discharge Order (Routine); Ordered 12/06/19 Ordered By: Mary Marshall/Other Patient Handouts: Respiratory Infect Common Prevention, Mirtazapine tablets Admission Data Admit Date/Time: 12/01/19 11:02 Attending Provider: Mary Santillan Admit Provider: Vi Manley Primary Care Provider: Corona Brice V. Other Providers: [facility] ; Vi Manley ; Jesse Darby ; Anurag Hubbard Other Interventions: Discharge Summary Assessment (RN) Last Done: 12/06/19 12:19
== END 2019-12-06 13:54 | disposition home health service (06) | DRG 189 ==
LOC: ED 07:38 → SUATTDRO 11:02 → 2N 11:02 → 2W 20:04 → 2N 20:36 → 2W 12-06 10:39 → 2N 12-06 11:13